=== PATIENT | male | born 1940 | race Caucasian/White ===

== ENCOUNTER → 2018-05-17 10:44 | Outpatient (CLI) | payer MEDICARE, OTHER, SELFPAY ==
--- NOTE | 2018-05-17 10:53 | XR_ITS ---
XR hand RT min 3V HISTORY: ITS.REASON: HAND INJURY , SWELLING ORDERING PHYSICIAN: Letty Alcala PATIENT AGE: 78 years COMPARISON: None FINDINGS: There is an oblique nondisplaced fracture involving the distal shaft of the third metacarpal. 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 IMPRESSION: Nondisplaced fracture of the third metacarpal
== END ==
PROVIDERS: PCP Nurse Practitioner Family; Visit Provider Nurse Practitioner Family
DX: S69.91XA Unspecified injury of right wrist, hand and finger(s), initial encounter (principal); M79.89 Other specified soft tissue disorders
CPT/HCPCS: 73130

== ENCOUNTER → 2018-06-07 09:19 | Outpatient (CLI) | payer MEDICARE, OTHER, SELFPAY ==
--- NOTE | 2018-06-07 09:29 | XR_ITS ---
XR hand RT min 3V HISTORY: ITS.REASON: HEALING OF RT HAND FX ORDERING PHYSICIAN: Letty Alcala PATIENT AGE: 78 years COMPARISON: May 17, 2018 TECHNIQUE: PA, Oblique and Lateral Hand FINDINGS: The oblique, spiral fracture at the distal third metacarpal is again seen. Passing passing through the distal shaft towards neck head Good apposition remains Slightly more evident cortical offset up to 1 mm is seen at the proximal corner of this spiral fracture on today's oblique view. Slightly different projection but this may reflect a very subtle interval movement. There is swelling about this area. No healing bone evident as of yet. Continued splinting and restricted movement of suggested. With follow-up in 2 weeks. Most pronounced degenerative arthritic changes are seen at the first carpal-metacarpal joint. Mild degenerative changes are seen at the IP joint of the fingers. It IMPRESSION Spiral fracture at the distal third metacarpal again seen. Good apposition, but suggestion of minor additional cortical offset at the proximal aspect of the fracture today's oblique view compared to previous study.. May reflect some minor movement. Follow-up suggested
== END ==
PROVIDERS: PCP Nurse Practitioner Family; Visit Provider Nurse Practitioner Family
DX: S62.342 Nondisplaced fracture of base of third metacarpal bone, right hand (principal)
CPT/HCPCS: 73130

== ENCOUNTER → 2019-04-12 13:47 | Outpatient (CLI) | payer MEDICARE, OTHER, SELFPAY ==
--- NOTE | 2019-04-12 14:11 | XR_ITS ---
XR KUB HISTORY: ITS.REASON: DYSURIA,CONSTIPATION ORDERING PHYSICIAN: Letty Alcala APRN PATIENT AGE: 79 years COMPARISON: FINDINGS: The bowel gas pattern is unremarkable. No obvious obstruction.. The small cluster of densities noted in the right upper quadrant may be due to cluster small renal stones. This could be confirmed with CT if clinically desired. Pelvic calcifications present inferiorly slightly to the left and could be due to a passed ureteral stone or phlebolith. Mild degenerative changes are present in the hips. IMPRESSION: 1. Possible right nephrolithiasis. 2. Left-sided pelvic calcification inferiorly could be due to phlebolith or a passed ureteral stone
[2019-04-12 14:31] LABS: Basophils # 0.1 K/mm3 (0-0.2); Basophils % 0.7 % (0.1-2.0); Eosinophils # 0.1 K/mm3 (0.0-0.4); Hemoglobin 14.8 g/dL (14.1-18.0); Lymphocytes # 1.2 K/mm3 (0.7-4.5); Lymphocytes % 16.6 % (10-50); Mean Corpuscular HGB Conc 34.5 g/dL (31.8-35.4); Mean Corpuscular Hemoglobin 29.3 pg (27.0-31.2); Mean Corpuscular Volume 84.9 fl (80-94); Mean Platelet Volume 7.2 fl (7.4-10.4); Monocytes # 0.5 K/mm3 (0.1-1.0); Monocytes % 6.7 % (1.7-9.3); Neutrophils # 5.5 K/mm3 (1.8-7.8); Neutrophils % 74.9 % (37.0-80.0); Platelet Count 237 K/mm3 (142-424); Red Blood Count 5.06 M/mm3 (4.60-6.20); Red Cell Distribution Width 12.4 % (11.5-17.5); White Blood Count 7.3 K/mm3 (4.8-10.8)
[2019-04-12 16:24] LABS: Alanine Aminotransferase 30 U/L (12-78); Albumin Level 3.5 gm/dL (3.4-5.0); Albumin/Globulin Ratio 1.2 (1.1-1.8); Alkaline Phosphatase 64 U/L (46-116); Anion Gap 9.6 mEq/L (5-15); Aspartate Amino Transferase 15 U/L (15-37); Bilirubin,Total 0.6 mg/dL (0.2-1.0); Blood Urea Nitrogen 20 mg/dL (7-18); Calcium 8.5 mg/dL (8.5-10.1); Carbon Dioxide 24 mmol/L (21.0-32.0); Chloride 99 mmol/L (98-107); Creatinine,Serum 1.11 mg/dL (0.70-1.30); Estimated Glomerular Filt Rate 64 ml/min (>60); GFR (African American) 78 ML/MIN (>60); Glucose 207 mg/dL (74-106); Potassium 4.6 mmoL/L (3.5-5.1); Prostate Specific Ag Screen 9.6 ng/mL (0.0-4.0); Sodium 128 mmol/L (136-145); Total Protein,Serum 6.5 gm/dL (6.4-8.2)
== END ==
PROVIDERS: Visit Provider Nurse Practitioner Family
DX: R30.0 Dysuria (principal); N40.0 Benign prostatic hyperplasia without lower urinary tract symptoms; K59.01 Slow transit constipation
CPT/HCPCS: 36415; 74018; 80053; 85025; G0103

== ENCOUNTER → 2019-06-04 13:00 | Outpatient (CLI) | payer MEDICARE, OTHER, SELFPAY ==
[2019-06-06 08:18] LABS: PSA, Free 1.29 ng/mL; Prostate Specific Ag 9.1 ng/mL (0.0-4.0)
== END ==
PROVIDERS: Visit Provider Urology
DX: R97.20 Elevated prostate specific antigen [PSA] (principal); Z12.5 Encounter for screening for malignant neoplasm of prostate
CPT/HCPCS: 36415; 84153; 84154

== ENCOUNTER → 2019-09-17 14:43 | Outpatient (CLI) | payer MEDICARE, OTHER, SELFPAY ==
[2019-09-19 12:03] LABS: PSA, Free 0.91 ng/mL; Prostate Specific Ag 7.8 ng/mL (0.0-4.0)
== END ==
PROVIDERS: Visit Provider Urology
DX: R97.20 Elevated prostate specific antigen [PSA] (principal)
CPT/HCPCS: 84153; 84154

== ENCOUNTER 2025-03-03 10:51 | Outpatient (CLI) | payer MEDICARE, SELFPAY ==
--- OUTSIDE RECORDS SUMMARY | 2025-03-03 10:54 | XMS_ITS | Encounter Summary ---
Author Name [facility] [place] Organization [facility] [place] [place] Address [address] [place] [id number] Care Team Providers Care Bank Compliance Officer Name Role Phone FLORESITA BARRIENTOS Primary Care Provider Unavailabl e Insurance Providers: All historical and current Section Date Range: From patient's date of to the date document was created. This section includes the names of all active insurance providers for the patient. Insurance Provider Type of Coverage Plan Name Start of Policy Coverage End of Policy Coverage Group Number Member ID Insurance Provider's Telephone Number Policy Barbosa's Name Patient's Relationship to Policy Barbosa MEDICARE (WNR) MEDICARE (M) PART A Feb 11, 2006 PART A [id number] Donny GODWIN PATIENT MEDICARE (WNR) MEDICARE (M) PART B Feb 11, 2006 PART B [id number] Donny GODWIN PATIENT MEDICARE (WNR) MEDICARE (M) PART A Feb 11, 2006 PART A [id number] [phone] [id number] Donny GODWIN PATIENT MEDICARE (WNR) MEDICARE (M) PART B Feb 11, 2006 PART B [id number] Donny GODWIN PATIENT MEDICARE (WNR) MEDICARE (M) PART A Feb 11, 2006 PART A [id number] Donny GODWIN PATIENT MEDICARE (WNR) MEDICARE (M) PART B Feb 11, 2006 PART B [id number] Donny GODWIN PATIENT MEDICARE (WNR) MEDICARE (M) PART A Feb 11, 2006 PART A [id number] Donny GODWIN PATIENT MEDICARE (WNR) MEDICARE (M) PART B Feb 11, 2006 PART B [id number] Donny GODWIN PATIENT MEDICARE PART D (WNR) PRESCRIPT ION PART D Nov 13, 2014 PART D [id number] Donny GODWIN PATIENT Selected Encounter This section includes the information on record at [place] for the Encounter. Date/Time Encounter Type Encounter Description Reason Pro vider Source March 15, 2024 11:53 AM Outpatient Encounter ADMIN PAT ACTIVTIES (MASNONCT) IHE Encounter Template Text not used by [place] Plan of Treatment: Future Appointments (+ 6 months) and Future Tests (+/- 45 days) The Plan of Treatment section includes future care activities for the patient from all [place] treatmentfacilities. This section includes future appointments and future orders which are active, pending or scheduled. Future Appointments This section includes appointments that were scheduled to occur 6 months from the date of the Encounter, up to a maximum of 20 appointments. The data comes from all [place] treatment facilities. Appointment Date/Time Appointment Type Appointme nt Facility Name Jul 24, 2024 09:00 AM AMBULATORY - NONE [facility] Jul 24, 2024 09:00 AM AMBULATORY - MEDICINE [facility] Encounter Notes: All associated encounter notes This section contains the clinical notes associated to the Encounter. Date/Time Encounter Note(s) Provider Source March 15, 2024 01:18 PM ADDENDUM: LOCAL TITLE: Addendum STANDARD TITLE: ADDENDUM DATE OF NOTE: MARCH 15, 2024@13:18:31 ENTRY DATE: MARCH 15, 2024@13:18:32 AUTHOR: SWETA REYNOSO COSIGNER: URGENCY: STATUS: COMPLETED Please disregard above note. Reviewed refills are available from [place] pharmacy(refills to be mailed). Mr. Godwin reports difficulty using [facility] to re-order medications and requests assistance. Thank you! /sarah REYNOSO PC Software Qa Manager RN-BC Signed: 03/15/2024 13:19 Receipt Acknowledged By: 03/20/2024 13:26 /ignacio/ YULI JEAN BAPTISTE COORDINATOR --- Original Document --- 03/15/24 PHARMACY TELEPHONE CARE NOTE: 1. Name of caller: 2. Phone #: 3. Specialty Clinic/Primary Care Team: Progress Note Date Title Author (and Author's Title) JUL 31, 2023@08:11 PC PROGRESS NOTE FLORESITA BARRIENTOS (STAFF PHYSICI JUL 11, 2014@14:40 NURSE PRACTITIONER PRO ROBERTA MCKNIGHT (A R N P) 4. Medication: Patient is wanting following rx sent to [facility] in [place] [phone]: LISINOPRIL 20MG TAB 5. Last fill date: Provider: 6. The caller requests prescription: 7. View Alert to: /ignacio/ Silverio Schreiber [facility] It Systems Analyst Signed: 03/15/2024 11:55 Receipt Acknowledged By: 03/15/2024 12:13 /sarah COLLINS M.D. PRIMARY CARE STAFF PHYSICIAN for FLORESITA BARRIENTOS 03/15/2024 ADDENDUM STATUS: COMPLETED I do not call in meds at a non [facility] pharmacy, the non [facility] pharmacy can send us a refill request /sarah COLLINS M.D. PRIMARY CARE STAFF PHYSICIAN Signed: 03/15/2024 12:15 Receipt Acknowledged By: 03/15/2024 13:12 /sarah REYNOSO PC Software Qa Manager RN-BC 03/15/2024 ADDENDUM STATUS: COMPLETED Please request faxed refill request for Dr. Collins. Thank you! /sarah REYNOSO PC Software Qa Manager RN-BC Signed: 03/15/2024 12:55 SWETA REYNOSO-CDD [facility] March 15, 2024 12:14 PM ADDENDUM: LOCAL TITLE: Addendum STANDARD TITLE: ADDENDUM DATE OF NOTE: MARCH 15, 2024@12:14:01 ENTRY DATE: MARCH 15, 2024@12:14:01 AUTHOR: JOSE ANGEL COLLINS COSIGNER: URGENCY: STATUS: COMPLETED I do not call in meds at a non [facility] pharmacy, the non [facility] pharmacy can send us a refill request /ignacio/ JOSE ANGEL COLLINS M.D. PRIMARY CARE STAFF PHYSICIAN Signed: 03/15/2024 12:15 Receipt Acknowledged By: 03/15/2024 13:12 /ignacio/ SWETA REYNOSO PC Software Qa Manager CLARK --- Original Document --- 03/15/24 PHARMACY TELEPHONE CARE NOTE: 1. Name of caller: 2. Phone #: 3. Specialty Clinic/Primary Care Team: Progress Note Date Title Author (and Author's Title) JUL 31, 2023@08:11 PC PROGRESS NOTE FLORESITA BARRIENTOS (STAFF PHYSICI JUL 11, 2014@14:40 NURSE PRACTITIONER PRO ROBERTA MCKNIGHT (A R N P) 4. Medication: Patient is wanting following rx sent to [facility] in [place] [phone]: LISINOPRIL 20MG TAB 5. Last fill date: Provider: 6. The caller requests prescription: 7. View Alert to: /ignacio/ Silverio Schreiber CPhT Pharmacy It Systems Analyst Signed: 03/15/2024 11:55 Receipt Acknowledged By: 03/15/2024 12:13 /sarah COLLINS M.D. PRIMARY CARE STAFF PHYSICIAN for FLORESITA BARRIENTOS 03/15/2024 ADDENDUM STATUS: COMPLETED Please request faxed refill request for Dr. Collins. Thank you! /ignacio/ SWETA REYNOSO PC Software Qa Manager RN-BC Signed: 03/15/2024 12:55 JOSE ANGEL COLLINS-CDD [facility] March 15, 2024 11:53 AM PHARMACY TELEPHONE ENCOUNTER NOTE: LOCAL TITLE: PHARMACY TELEPHONE CARE NOTE STANDARD TITLE: PHARMACY TELEPHONE ENCOUNTER NOTE DATE OF NOTE: MARCH 15, 2024@11:53 ENTRY DATE: MARCH 15, 2024@11:53:31 AUTHOR: SILVERIO SCHREIBER EXP COSIGNER: URGENCY: STATUS: COMPLETED PHARMACY TELEPHONE CARE NOTE Has ADDENDA 1. Name of caller: 2. Phone #: 3. Specialty Clinic/Primary Care Team: Progress Note Date Title Author (and Author's Title) JUL 31, 2023@08:11 PC PROGRESS NOTE FLORESITA BARRIENTOS (STAFF PHYSICI JUL 11, 2014@14:40 NURSE PRACTITIONER PRO ROBERTA MCKNIGHT (A R N P) 4. Medication: Patient is wanting following rx sent to [facility] in [place] [phone]: LISINOPRIL 20MG TAB 5. Last fill date: Provider: 6. The caller requests prescription: 7. View Alert to: /ignacio/ Silverio Schreiber [facility] It Systems Analyst Signed: 03/15/2024 11:55 Receipt Acknowledged By: 03/15/2024 12:13 /sarah COLLINS M.D. PRIMARY CARE STAFF PHYSICIAN for FLORESITA BARRIENTOS 03/15/2024 ADDENDUM STATUS: COMPLETED I do not call in meds at a non [place] pharmacy, the non [place] pharmacy can send us a refill request /sarah COLLINS M.D. PRIMARY CARE STAFF PHYSICIAN Signed: 03/15/2024 12:15 Receipt Acknowledged By: 03/15/2024 13:12 /sarah REYNOSO PC Software Qa Manager RN-BC 03/15/2024 ADDENDUM STATUS: COMPLETED Please request faxed refill request for Dr. Collins. Thank you! /sarah REYNOSO PC Software Qa Manager RN-BC Signed: 03/15/2024 12:55 03/15/2024 ADDENDUM STATUS: COMPLETED Please disregard above note. Reviewed refills are available from [place] pharmacy(refills to be mailed). Mr. Godwin reports difficulty using [facility] to re-order medications and requests assistance. Thank you! /ignacio/ SWETA REYNOSO PC Software Qa Manager RN- Signed: 03/15/2024 13:19 Receipt Acknowledged By: * AWAITING SIGNATURE * YULI GREEN,SILVERIO BUTTS-ITZEL [facility]
--- OUTSIDE RECORDS SUMMARY | 2025-03-03 10:54 | XMS_ITS ---
Author Name [facility] [place] [place] [facility] [place] Address [address] [place] [address] Care Team Providers Care Child Development Specialist Name Role Phone FLORESITA BARRIENTOS Primary Care [...] PART A Feb 11, 2006 PART A [id number] Donny GODWIN PATIENT MEDICARE (WNR) MEDICARE (M) PART B Feb 11, 2006 PART B [id number] Donny GODWIN PATIENT MEDICARE (WNR) MEDICARE (M) PART A Feb 11, 2006 PART A [id number] Donny GODWIN PATIENT MEDICARE (WNR) MEDICARE (M) PART B Feb 11, 2006 PART B [id number] Donny GODWIN PATIENT MEDICARE (WNR) MEDICARE (M) PART A Feb 11, 2006 PART A [id number] 78A Donny GODWIN PATIENT MEDICARE (WNR) MEDICARE (M) PART B Feb 11, 2006 PART B [id number] 78A Donny GODWIN PATIENT MEDICARE (WNR) MEDICARE (M) PART A Feb 11, 2006 PART A [id number] Donny GODWIN PATIENT MEDICARE (WNR) MEDICARE (M) PART B Feb 11, 2006 PART B [id number] Donny GODWIN PATIENT MEDICARE PART D (WNR) PRESCRIPT ION PART D Nov 13, 2014 PART D [id number] [phone] Donny GODWIN PATIENT Selected Encounter This section includes the information on record at [place] for the Encounter. Date/Time Encounter Type Encounter Description Reason Pro vider Source Jul 09, 2024 03:53 PM Outpatient Encounter ADMIN PAT ACTIVTIES (MASNONCT) IHE Encounter Template Text not used by [place] Plan of Treatment: Future Appointments (+ 6 months) and Future Tests (+/- 45 days) The Plan of Treatment section includes future care activities for the patient from all [place] treatmentfacilities. This section includes future appointments and future orders which are active, pending or scheduled. Future Appointments This section includes appointments that were scheduled to occur 6 months from the date of the Encounter, up to a maximum of 20 appointments. The data comes from all [place] treatment facilities. Appointment Date/Time Appointment Type Appointme nt Facility Name Jul 24, 2024 09:00 AM AMBULATORY - NONE [facility] Jul 24, 2024 09:00 AM AMBULATORY - MEDICINE ERIC [facility] Oct 09, 2024 01:00 PM AMBULATORY - NONE HEMAL Hardy [facility] Lab Results: +/- 30 days of the encounter This section includes the Chemistry and Hematology Lab Results on record with [place] for the patient. Radiology Reports and Pathology Reports are provided separately, in subsequent sections. Lab Results This section contains the Chemistry/Hematology Results that were resulted 30 days before or 30 daysafter the date of the Encounter. Date/Time Source Result Type Result - Unit Interpretation Reference Range Specimen Type Comment Jul 24, 2024 10:30 AM [facility] MICROALBUMIN/CREAT RATIO URINE Specimen Type: URINE No comment entered. Ordering Provider: OLGA ASHRAF Report Released Date/Time: Jul 24, 2024 09:59 AM Reporting Lab: [address] [id number] Performing Lab: [address] [address] CREATININE 127.5 mg/dL MICROALBUMIN QUANT 15.9 mg/L 0.0-30.0 .MICROALBUMIN/CREA RATIO 12.5 ug/mg{creat} Jul 24, 2024 10:21 AM [facility] GLYCOHEMOGLOBIN BLOOD Specimen Type: BLOOD Comment: [place] guidelines for A1c interpretation: Glycemic control targets are based on Shared Decision Making between clinicians and patients. Criteria used to establish an A1c target recommendation can be found at https://www.ar.gov/qualityandpatientsafety/ and include the use of result accuracy and precision(CV) of the A1c tests clinicians utilize at their own sites of practice. Values obtained from A1C measurements can vary. For typical A1C assays, a reported value of 7.0 could actually be between 6.72 and 7.28 if measured by a reference method. A reported value of 9.0 could actually be between 8.73 and 9.27. Ref: https://ngsp.org/CAPdata.asp. The in-house [employer] D-100 analyzer has a historical CV <= 2%. Contact the laboratory for further performance characteristics of this assay. Ordering Provider: OLGA ASHRAF Report Released Date/Time: Jul 24, 2024 09:59 AM Reporting Lab: [address] [address] Performing Lab: [address] [address] GLYCOHEMOGLOBIN 7.7 H 4.4-6.4 Jul 24, 2024 10:21 AM [facility] TSH PLASMA Specimen Type: PLASM A Comment: Estimated Glomerular Filtration Rate (eGFR) calculated using the 2020 Chronic Kidney Disease-Epidemiology (CKD-EPI) Collaboration creatinine equation; units of measure are mL/min/1.73 m2. Results are only valid for adults (>=18 years) whose serum creatinine is in a steady state. eGFR calculations are not valid for patients with acute kidney injury and for patients on dialysis. Creatinine-based estimates of kidney function may also be inaccurate in patients with reduced creatinine generation due to decreased muscle mass (e.g., malnutrition, severe hypoalbuminemia, sarcopenia, chronic neuromuscular disease, amputations, severe heart failure or liver disease) and in patients with increased creatinine generation due to increased muscle mass (e.g., muscle builders, anabolic steroids) or increased dietary intake. As drug clearance is proportional to total GFR and not GFR indexed to body surface area (BSA), in individuals with a BSA substantially different than 1.73 m2, drug dosing should be based on the reported eGFR value de-indexed from BSA by multiplying by the individual's BSA and dividing by 1.73. CKD is diagnosed based on abnormalities of kidney structure or function, present for >3 months, with implications for health and disease. CKD is classified and staged based on cause, eGFR and albuminuria (quantified as urine albumin to creatinine ratio). An eGFR >60 mL/min/1.73 m2 in the absence of increased urine albumin excretion or structural abnormalities does not represent CKD. eGFR CKD Interpretation (mL/min/1.73 m2) stage >=90 G1 Normal 60-89 G2 Mild decrease 45-59 G3A Mild to moderate decrease 30-44 G3B Moderate to severe decrease 15-29 G4 Severe decrease <15 G5 Kidney failure Ordering Provider: OLGA ASHRAF Report Released Date/Time: Jul 24, 2024 09:59 AM Reporting Lab: [address] [address] Performing Lab: [address] [address] TSH 1.5447 m[IU]/mL 0.3500-4.9400 Jul 24, 2024 10:21 AM [facility] 5 PLASMA Specimen Type: PLASM A Comment: Estimated Glomerular Filtration Rate (eGFR) calculated using the 2020 Chronic Kidney Disease-Epidemiology (CKD-EPI) Collaboration creatinine equation; units of measure are mL/min/1.73 m2. Results are only valid for adults (>=18 years) whose serum creatinine is in a steady state. eGFR calculations are not valid for patients with acute kidney injury and for patients on dialysis. Creatinine-based estimates of kidney function may also be inaccurate in patients with reduced creatinine generation due to decreased muscle mass (e.g., malnutrition, severe hypoalbuminemia, sarcopenia, chronic neuromuscular disease, amputations, severe heart failure or liver disease) and in patients with increased creatinine generation due to increased muscle mass (e.g., muscle builders, anabolic steroids) or increased dietary intake. As drug clearance is proportional to total GFR and not GFR indexed to body surface area (BSA), in individuals with a BSA substantially different than 1.73 m2, drug dosing should be based on the reported eGFR value de-indexed from BSA by multiplying by the individual's BSA and dividing by 1.73. CKD is diagnosed based on abnormalities of kidney structure or function, present for >3 months, with implications for health and disease. CKD is classified and staged based on cause, eGFR and albuminuria (quantified as urine albumin to creatinine ratio). An eGFR >60 mL/min/1.73 m2 in the absence of increased urine albumin excretion or structural abnormalities does not represent CKD. eGFR CKD Interpretation (mL/min/1.73 m2) stage >=90 G1 Normal 60-89 G2 Mild decrease 45-59 G3A Mild to moderate decrease 30-44 G3B Moderate to severe decrease 15-29 G4 Severe decrease <15 G5 Kidney failure Ordering Provider: OLGA ASHRAF Report Released Date/Time: Jul 24, 2024 09:59 AM Reporting Lab: [address] [address] Performing Lab: [address] [address] CREATININE 1.14 mg/dL 0.72-1.25 UREA NITROGEN 23 mg/dL 9-25 GLUCOSE 117 mg/dL H 74-100 SODIUM 140 mmol/L 136-145 POTASSIUM 4.1 mmol/L 3.5-5.1 CHLORIDE 107 mmol/L 98-107 CO2 24 mmol/L 22-29 CALCIUM 10.1 mg/dL 8.4-10.2 TOTAL PROTEIN 7.0 g/dL 6.4-8.3 ALBUMIN 4.4 g/dL 3.5-5.2 TOTAL BILIRUBIN 0.7 mg/dL 0.2-1.2 AST 18 U/L 5-34 ALT 16 U/L 0-55 ANION GAP 9 meq/L 3-19 ALK PHOS 72 U/L 40-150 eGFR (CKD-EPI) 64 Jul 24, 2024 10:21 AM [facility] LIPID PROFILE PLASMA Specimen Type: PLASM A Comment: Estimated Glomerular Filtration Rate (eGFR) calculated using the 2020 Chronic Kidney Disease-Epidemiology (CKD-EPI) Collaboration creatinine equation; units of measure are mL/min/1.73 m2. Results are only valid for adults (>=18 years) whose serum creatinine is in a steady state. eGFR calculations are not valid for patients with acute kidney injury and for patients on dialysis. Creatinine-based estimates of kidney function may also be inaccurate in patients with reduced creatinine generation due to decreased muscle mass (e.g., malnutrition, severe hypoalbuminemia, sarcopenia, chronic neuromuscular disease, amputations, severe heart failure or liver disease) and in patients with increased creatinine generation due to increased muscle mass (e.g., muscle builders, anabolic steroids) or increased dietary intake. As drug clearance is proportional to total GFR and not GFR indexed to body surface area (BSA), in individuals with a BSA substantially different than 1.73 m2, drug dosing should be based on the reported eGFR value de-indexed from BSA by multiplying by the individual's BSA and dividing by 1.73. CKD is diagnosed based on abnormalities of kidney structure or function, present for >3 months, with implications for health and disease. CKD is classified and staged based on cause, eGFR and albuminuria (quantified as urine albumin to creatinine ratio). An eGFR >60 mL/min/1.73 m2 in the absence of increased urine albumin excretion or structural abnormalities does not represent CKD. eGFR CKD Interpretation (mL/min/1.73 m2) stage >=90 G1 Normal 60-89 G2 Mild decrease 45-59 G3A Mild to moderate decrease 30-44 G3B Moderate to severe decrease 15-29 G4 Severe decrease <15 G5 Kidney failure Ordering Provider: OLGA ASHRAF Report Released Date/Time: Jul 24, 2024 09:59 AM Reporting Lab: [address] [address] Performing Lab: [place] [id number] CHOLESTEROL 114 mg/dL 0-199 TRIGLYCERIDE 68 mg/dL 0-149 HDL CHOLESTEROL 34 mg/dL L 40-69 DIRECT LDL CHOL. 64 mg/dL 0-100 Jul 24, 2024 10:21 AM [facility] CBC/PLT BLOOD Specimen Type: BLOOD No comment entered. Ordering Provider: OLGA ASHRAF Report Released Date/Time: Jul 24, 2024 09:59 AM Reporting Lab: [address] [address] Performing Lab: [address] [address] WBC 5.1 10*3/uL 5.0-10.0 RBC 4.48 10*6/uL L 4.6-6.2 HGB 12.8 g/dL L 14.0-18.0 HCT 39.9 L 42.0-52.0 MCV 89.1 fL 80.0-94.0 MCH 28.6 pg 27.0-31.0 MCHC 32.1 g/dL 32.0-36.0 PLT 181 10*3/uL 150-450 MPV 11.1 fL 9.0-13.1 RDW 12.0 11.0-16.0 NRBC 0.0 0.0-0.0 Encounter Notes: All associated encounter notes This section contains the clinical notes associated to the Encounter. Date/Time Encounter Note(s) Provider Source Jul 09, 2024 03:53 PM ADMINISTRATIVE NOT E: LOCAL TITLE: CLERICAL/ADMIN NOTE STANDARD TITLE: ADMINISTRATIVE NOTE DATE OF NOTE: JUL 09, 2024@15:53 ENTRY DATE: JUL 09, 2024@15:53:30 AUTHOR: ARNOLD WADDELL COSIGNER: URGENCY: STATUS: COMPLETED Attempted to contact patient to schedule due recall for PCP and no answer. Left HIPAA friendly message for patient to call back for scheduling. Letter sent. /ignacio/ ARNOLD WADDELL Advanced Well Service Floorperson Signed: 07/09/2024 15:53 ARNOLD WADDELLAziza [facility] Jul 09, 2024 03:53 PM PRIMARY CARE LETTE RS: [facility] TITLE: PC LETTER FOLLOW UP/PAST RECALL/INACTIVE STANDARD TITLE: PRIMARY CARE LETTERS DATE OF NOTE: JUL 09, 2024@15:53 ENTRY DATE: JUL 09, 2024@15:53:51 AUTHOR: ARNOLD WADDELL EXP COSIGNER: URGENCY: STATUS: COMPLETED [address] [address] [place] [id number] Mr. MEHRDAD GODWIN [address] [place] [address] [place] [address] JUL 09, 2024 Dear Mr. MEHRDAD GODWIN, Our Records indicate you are due for an appointment in primary care. We value you as a patient, and are concerned about your overall health. Patients are encouraged to see their Primary Care Provider annually to maintain their health care needs. If you would like to be seen and maintain enrollment in Primary Care, please contact our Telephone Care Program at or local [phone] to schedule an appointment. If you do not wish to be seen, please call the same number listed above, and let us know. We look forward to hearing from you soon. Sincerely, /sarah WADDELL Advanced Well Service Floorperson Patient Record Number [id number] ARNOLD WADDELL [facility]
--- OUTSIDE RECORDS SUMMARY | 2025-03-03 10:54 | XMS_ITS | Encounter Summary ---
Author Name [facility] [place] [facility] [place] [facility] [place] Address [address] [place] [id number] Care Team Providers Care Software Security Consultant Name Role Phone FLORESITA BARRIENTOS Primary Care [...] PART A Feb 11, 2006 PART A [id number] [phone] Donny GODWIN PATIENT MEDICARE (WNR) MEDICARE (M) PART B Feb 11, 2006 PART B [id number] Donny GODWIN PATIENT MEDICARE (WNR) MEDICARE (M) PART A Feb 11, 2006 PART A [id number] Donny GODWIN PATIENT MEDICARE (WNR) MEDICARE (M) PART B Feb 11, 2006 PART B [id number] [phone] Donny GODWIN PATIENT MEDICARE (WNR) MEDICARE (M) PART A Feb 11, 2006 PART A [id number] Donny GODWIN PATIENT MEDICARE (WNR) MEDICARE (M) PART B Feb 11, 2006 PART B [id number] Donny GODWIN PATIENT MEDICARE (WNR) MEDICARE (M) PART A Feb 11, 2006 PART A [id number] Donny GODWIN PATIENT MEDICARE (WNR) MEDICARE (M) PART B Feb 11, 2006 PART B [id number] Donny GODWIN PATIENT MEDICARE PART D (WNR) PRESCRIPT ION PART D Nov 13, 2014 PART D [id number] Donny GODWIN PATIENT Selected Encounter This section includes the information on record at [place] for the Encounter. Date/Time Encounter Type Encounter Description Reason Provider Source Jul 24, 2024 09:00 AM [facility]LEHEALTH FACILITY FEE PRIMARY CARE/MEDICINE ICD-10-CM E11.9 Type 2 diabetes mellitus without complications GILMAR ASHRAF Brandy Encounter Template Text not used by [place] Assessments - Encounter Diagnoses This section includes the primary and secondary diagnoses documented for the Encounter. Date/Time Primary/Secondary Diagnosis Diagnosis Name Provider Source Jul 24, 2024 10:12 AM PRIMARY Type 2 diabetes mellitus without complications OLGA ASHRAF [facility] Jul 24, 2024 10:12 AM SECONDARY Benign prostatic hyperplasia without lower urinry tract symp FLAREOLGA Beach [facility] Jul 24, 2024 10:12 AM SECONDARY Essential (primary) hypertension OLGA ASHRAF [facility] Jul 24, 2024 10:12 AM SECONDARY Mixed hyperlipidemia FLAREYOLGA [facility] Plan of Treatment: Future Appointments (+ 6 months) and Future Tests (+/- 45 days) The Plan of Treatment section includes future care activities for the patient from all [place] treatmentfacilities. This section includes future appointments and future orders which are active, pending or scheduled. Future Appointments This section includes appointments that were scheduled to occur 6 months from the date of the Encounter, up to a maximum of 20 appointments. The data comes from all [place] treatment facilities. Appointment Date/Time Appointment Type Appointme nt Facility Name Oct 09, 2024 01:00 PM AMBULATORY - NONE [facility] Lab Results: +/- 30 days of the encounter This section includes the Chemistry and Hematology Lab Results on record with [place] for the patient. Radiology Reports and Pathology Reports are provided separately, in subsequent sections. Lab Results This section contains the Chemistry/Hematology Results that were resulted 30 days before or 30 daysafter the date of the Encounter. Date/Time Source Result Type Result - Unit Interpretation Reference Range Specimen Type Comment Jul 24, 2024 10:30 AM [facility] N MICROALBUMIN/CREAT RATIO URINE Specimen Type: URINE No comment entered. Ordering Provider: OLGA ASHRAF Report Released Date/Time: Jul 24, 2024 09:59 AM Reporting Lab: [address] [address] Performing Lab: [address] [address] CREATININE 127.5 mg/dL MICROALBUMIN QUANT 15.9 mg/L 0.0-30.0 .MICROALBUMIN/CREA RATIO 12.5 ug/mg{creat} Jul 24, 2024 10:21 AM [facility] GLYCOHEMOGLOBIN BLOOD Specimen Type: BLOOD Comment: [place] guidelines for A1c interpretation: Glycemic control targets are based on Shared Decision Making between clinicians and patients. Criteria used to establish an A1c target recommendation can be found at https://www.nd.gov/qualityandpatientsafety/ and include the use of result accuracy [...] 8.73 and 9.27. Ref: https://ngsp.org/CAPdata.asp. The in-house [employer] D-100 analyzer has a historical CV <= 2%. Contact the laboratory for further performance characteristics of this assay. Ordering Provider: OLGA ASHRAF Report Released Date/Time: Jul 24, 2024 09:59 AM Reporting Lab: [address] [address] Performing Lab: [facility] [address] [facility] [address] GLYCOHEMOGLOBIN 7.7 H 4.4-6.4 Jul 24, 2024 10:21 AM [facility] TSH PLASMA Specimen Type: PLASM A Comment: [...] Jul 24, 2024 09:59 AM Reporting Lab: [facility] [address] [address] Performing Lab: [facility] [address] [address] TSH 1.5447 m[IU]/mL 0.3500-4.9400 Jul 24, 2024 10:21 AM [facility] PLASMA Specimen Type: PLASM A [...] Jul 24, 2024 09:59 AM Reporting Lab: [facility] [address] [facility] [address] Performing Lab: [address] [address] CREATININE 1.14 mg/dL 0.72-1.25 UREA NITROGEN 23 [...] (CKD-EPI) 64 Jul 24, 2024 10:21 AM [facility] LIPID PROFILE PLASMA Specimen Type: PLASM [...] Jul 24, 2024 09:59 AM Reporting Lab: [address] [address] Performing Lab: [address] [address] CHOLESTEROL 114 mg/dL 0-199 TRIGLYCERIDE 68 mg/dL 0-149 HDL CHOLESTEROL 34 mg/dL L 40-69 DIRECT LDL CHOL. 64 mg/dL 0-100 Jul 24, 2024 10:21 AM [facility] CBC/PLT BLOOD Specimen Type: BLOOD No comment entered. Ordering Provider: OLGA ASHRAF Report Released Date/Time: Jul 24, 2024 09:59 AM Reporting Lab: [address] [address] Performing Lab: [address] [address] WBC 5.1 10*3/uL 5.0-10.0 RBC 4.48 10*6/uL L 4.6-6.2 HGB 12.8 g/dL L 14.0-18.0 HCT 39.9 L 42.0-52.0 MCV 89.1 fL 80.0-94.0 MCH 28.6 pg 27.0-31.0 MCHC 32.1 g/dL 32.0-36.0 PLT 181 10*3/uL 150-450 MPV 11.1 fL 9.0-13.1 RDW 12.0 11.0-16.0 NRBC 0.0 0.0-0.0 Social History: Smoking Status (Most current) and Tobacco Use (All prior to encounter date) This section includes the most current, and the historical, smoking and tobacco- related health factors from the [place] facility where the Encounter took place. Current Smoking Status This section includes the most current smoking, or tobacco-related health factor, from the [place] facility where the Encounter took place. Date/Time Current Smoking Status Rosalinda Gibbons elena Jul 24, 2024 09:00 AM VA-TOBACCO NEVER USED [facility] Encounter Notes: All associated encounter notes This section contains the clinical notes associated to the Encounter. Date/Time Encounter Note(s) Provider Source Jul 28, 2024 07:33 PM PRIMARY CARE LETTE RS: LOCAL TITLE: PC LETTER TEST RESULTS STANDARD TITLE: PRIMARY CARE LETTERS DATE OF NOTE: JUL 28, 2024@19:33 ENTRY DATE: JUL 28, 2024@19:33:34 AUTHOR: OLGA ASHRAF EXP COSIGNER: URGENCY: STATUS: COMPLETED [facility] [address] [place] [address] Mr. MEHRDAD GODWIN [address] [place] [address] [address] [place], [place] [address] JUL 28, 2024 Dear Mr. MEHRDAD GODWIN Your Primary Care Provider has reviewed your recent tests Please call us if you have questions or problems. You can reach us at (toll free number) or [phone] (local number). If you are enrolled in [employer], and utilize those services, you may prefer to contact us by secure message. Thank you for your service to our Country. We are honored to be able to provide medical care to you. Recent labwork Collection DT Specimen Test Name Result Units Ref Range 07/24/2024 10:30 URINE CREATININE 127.5 mg/dL MICROALBUMIN LORI 15.9 mg/L 0.0 - 30.0 HI/CREA 12.5 ug/mg Crea 07/24/2024 10:21 PLASMA!! CHOLESTEROL 114 mg/dL 0 - 199 !! TRIGLYCERIDE 68 mg/dL 0 - 149 !! HDL CHOLESTEROL 34 L mg/dL 40 - 69 !! DIRECT LDL CHOL. 64 mg/dL 0 - 100 !! SODIUM 140 mmol/L 136 - 145 !! POTASSIUM 4.1 mmol/L 3.5 - 5.1 !! CHLORIDE 107 mmol/L 98 - 107 !! CO2 24 mmol/L 22 - 29 !! ANION GAP 9.0 mEq/L 3 - 19 !! GLUCOSE 117 H mg/dL 74 - 100 !! UREA NITROGEN 23 mg/dL 9 - 25 !! CREATININE 1.14 mg/dL 0.72 - 1.25 !! eGFR (CKD-EPI) 64 SEE EVAL !! CALCIUM 10.1 mg/dL 8.4 - 10.2 !! TOTAL PROTEIN 7.0 g/dL 6.4 - 8.3 !! ALBUMIN 4.4 g/dL 3.5 - 5.2 !! TOTAL BILIRUBIN 0.7 mg/dL 0.2 - 1.2 !! AST 18 U/L 5 - 34 !! ALT 16 U/L 0 - 55 !! ALK PHOS 72 U/L 40 - 150 !! TSH 1.5447 mIU/mL 0.3500 - 4.9400 07/24/2024 10:21 BLOOD !! GLYCOHEMOGLOBIN 7.7 H % 4.4 - 6.4 07/24/2024 10:21 BLOOD WBC 5.1 K/cmm 5.0 - 10.0 RBC 4.48 L M/cmm 4.6 - 6.2 HGB 12.8 L g/dL 14.0 - 18.0 HCT 39.9 L % 42.0 - 52.0 MCV 89.1 fL 80.0 - 94.0 MCH 28.6 pg 27.0 - 31.0 MCHC 32.1 g/dL 32.0 - 36.0 RDW 12.0 % 11.0 - 16.0 PLT 181 K/cmm 150 - 450 MPV 11.1 fL 9.0 - 13.1 NRBC 0.0 % 0.0 - 0.0 Overall labs look good/stable. There is a slight decrease in hemoglobin/hematocrit. Recheck CBC in 2 to 3 months Sincerely, /ignacio/ OLGA ASHRAF Staff Physician Patient Record Number [id number] OLGA ASHRAF-D [facility] Jul 24, 2024 10:14 AM MEDICATION MGT NOT E: LOCAL TITLE: OUTPATIENT ESSENTIAL MEDICATION LIST FOR REVIEW (EM STANDARD TITLE: MEDICATION MGT NOTE DATE OF NOTE: JUL 24, 2024@10:14 ENTRY DATE: JUL 24, 2024@10:14:15 AUTHOR: OLGA ASHRAF EXP COSIGNER: URGENCY: STATUS: COMPLETED Review of medications include: Patient allergies (Remote and Local) and active and pending prescriptions dispensed from this [place] (local) and dispensed from another [place] or [facility] facility (remote and pending) as well as local inpatient orders (pending and active) and clinic medications (IMOs), locally documented non-VA medications and local prescriptions that have or been discontinued in the past 90 days. With the exception of Allergies, if a category is not listed below, it means there were no relevant medications for the patient. ALLERGIES: Patient has answered NKA No Remote Allergy/ADR Data available for this patient ACTIVE OUTPATIENT MEDICATIONS LOCAL/REMOTE ATORVASTATIN CALCIUM 40MG TAB Directions: TAKE ONE-HALF TABLET BY MOUTH DAILY FOR CHOLESTEROL Quantity: 45 for 90 days Issued: 07/31/23 Filled: 06/07/24 Expires: 07/31/24 Refills: 0 Status: ACTIVE LISINOPRIL 20MG TAB Directions: TAKE ONE-HALF TABLET BY MOUTH DAILY FOR BLOOD PRESSURE/HEART Quantity: 45 for 90 days Issued: 07/31/23 Filled: 06/07/24 Expires: 07/31/24 Refills: 0 Status: ACTIVE SILDENAFIL CITRATE 100MG TAB Directions: TAKE ONE TABLET BY MOUTH DIRECTED FOR ERECTILE DYSFUNCTION - DO NOT TAKE WITH ANY MEDICATION CONTAINING NITRATES (LIMIT: 4 DOSES/30 DAYS OR 12 DOSES/90 DAYS, NON-REPLACEABLE MEDICATION) Quantity: 18 for 90 days Issued: 07/31/23 Filled: 12/12/23 Expires: 07/31/24 Refills: 2 Status: ACTIVE No remote medications found. PENDING OUTPATIENT MEDICATIONS (LOCAL/REMOTE): ACCU-CHEK GUIDE (GLUCOSE) TEST STRIP Directions: USE 1 STRIP TO TEST BLOOD SUGAR DIRECTED Quantity: 50 Special: USE 1 STRIP FSBS UD Status: PENDING ATORVASTATIN CALCIUM 40MG TAB Directions: TAKE ONE-HALF TABLET BY MOUTH DAILY FOR CHOLESTEROL Quantity: 45 Special: TAKE ONE-HALF TABLET PO DAILY Status: PENDING LANCET,SOFTCLIX Directions: USE LANCET AFFECTED AREA DIRECTED Quantity: 100 Special: USE LANCET TOP UD Status: PENDING LISINOPRIL 20MG TAB Directions: TAKE ONE-HALF TABLET BY MOUTH DAILY FOR BLOOD PRESSURE/HEART Quantity: 45 Special: TAKE ONE-HALF TABLET PO DAILY Status: PENDING METFORMIN HCL 500MG TAB Directions: TAKE ONE TABLET BY MOUTH TWICE A DAY Quantity: 180 Special: TAKE ONE TABLET PO BID Status: PENDING No remote medications found. ACTIVE NONVA MEDICATIONS (LOCAL): No local medications found. OUTPATIENT MEDICATIONS (LOCAL)WITHIN 90 DAYS: No local medications found. DISCONTINUED OUTPATIENT MEDICATIONS (LOCAL) WITHIN 90 DAYS: METFORMIN HCL 500MG 24HR SA TAB Directions: TAKE ONE TABLET BY MOUTH DAILY FOR BLOOD SUGAR Quantity: 90 for 90 days Issued: 08/02/23 Filled: 08/03/23 Expires: 08/02/24 Refills: 3 Status: DISCONTINUED CLINIC MEDICATIONS (LOCAL): No local medications found. /ignacio/ OLGA ASHRAF Staff Physician Signed: 07/24/2024 10:14 OLGA ASHRAF-ITEZL [facility] Jul 24, 2024 09:25 AM PRIMARY CARE NURSI NG NOTE: LOCAL TITLE: Giving Assistant Health Tech/medicinal plant picker Note STANDARD TITLE: PRIMARY CARE NURSING NOTE DATE OF NOTE: JUL 24, 2024@09:25 ENTRY DATE: JUL 24, 2024@09:25:28 AUTHOR: EWA BURTON EXP COSIGNER: URGENCY: STATUS: COMPLETED Alcohol Use Screen (AUDIT-C): Alcohol Screen: SCREEN FOR ALCOHOL (AUDIT-C) An alcohol screening test (AUDIT-C) was negative (score=0). 1. How often did you have a drink containing alcohol in the past year? Consider a drink to be a 12 ounce can or bottle of regular beer, 8 ounces of malt liquor, a 5 ounce glass of table wine, or a 1.5 ounce shot of liquor (like scotch, gin, or vodka). Never 2. How many drinks containing alcohol did you have on a typical day when you were drinking in the past year? Response not required due to responses to other questions. 3. How often did you have six or more drinks on one occasion in the past year? Response not required due to responses to other questions. Depression Screening: Perform PHQ-2 A PHQ-2 screen was performed. The score was 0 which is a negative screen for depression. Over the past two weeks, how often have you been bothered by the following problems? 1. Little interest or pleasure in doing things Not at all 2. Feeling down, depressed, or hopeless Not at all Homelessness/Food Insecurity Screen: In the past 2 months, have you been living in stable housing that you own, rent, or stay in as part of a household? Yes - Living in stable housing. Are you worried or concerned that in the next 2 months you may NOT have stable housing that you own, rent, or stay in as part of a household? No - Not worried about housing near future The [place] reports the following: Within the past 12 months, you worried whether your food would run out before you got money to buy more. Never true Within the past 12 months, the food you bought just didn't last and you didn't have money to get more. Never true Suicide Screen: C-SSRS Screening [place] Suicide Severity Rating Scale (C-SSRS) screener 1. Over the past month, have you wished you were or wished you could go to sleep and not wake up? No 2. Over the past month, have you had any actual thoughts of killing yourself? No 3. Over the past month, have you been thinking about how you might do this? Response not required due to responses to other questions. 4. Over the past month, have you had these thoughts and had some intention of acting on them? Response not required due to responses to other questions. 5. Over the past month, have you started to work out or worked out the details of how to kill yourself? Response not required due to responses to other questions. 6. If yes, at any time in the past month did you intend to carry out this plan? Response not required due to responses to other questions. 7. In your lifetime, have you ever done anything, started to do anything, or prepared to do anything to end your life (for example, collected pills, obtained a gun, gave away valuables, went to the roof but didn't jump)? No 8. If YES, was this within the past 3 months? Response not required due to responses to other questions. Sexual Orientation: The patient thinks of their sexual orientation as: Straight or Heterosexual ADL/IADL Functional Measures(V9): Incontinence Screen: Within the past 12 months, has the patient had any characteristics of incontinence (ability, voiding, leakage, etc.)? No incontinence. Falls Screen: Patient does not report falls within the past 12 months. Dementia Warning Signs: Please indicate below whether the patient or caregiver report any warning signs of Dementia? No warning signs of dementia noted. Hess Index of Lyman in Activities of Daily Living: HESS INDEX FOR ADL ASSESSMENT: HESS Index of Lyman in Activities of Daily Living was completed at this encounter. BATHING: Patient needs no supervision, direction or personal assistance with bathing. DRESSING: Patient needs no supervision, direction or personal assistance with dressing. TOILETING: Patient needs no supervision, direction or personal assistance with toileting. TRANSFERRING: Patient needs no supervision, direction or personal assistance with transferring. CONTINENCE: Patient needs no supervision, direction or personal assistance with bowel continence. FEEDING: Patient needs no supervision, direction or personal assistance with feeding/eating. ENTER TOTAL SCORE BELOW: TOTAL POINTS: = [ 6 ] NOTE: 6-5 = FULL FUNCTION (patient independent) INSTRUMENTAL ACTIVITIES OF DAILY LIVING (IADL) SCALE (Mateusz) Telephone: 1 point - Looks up numbers, dials, receives and makes calls without help Shoppin point - Takes care of all shopping needs independently Food preparation: 1 point - Plans, prepares, and serves adequate meals independently Housekeepin point - Performs light daily tasks such as dishwashing, bed-making Laundry: 1 point - Able to lauunder small items; rinses stockings, etc. Mode of transportation: 1 point - Travels independently on public transportation or drives own car Responsibility for own medications: 1 point - Is responsible for taking medication in correct dosages at correct time Ability to handle finances: 1 point - Manages financial matters independently (budgets, writes checks, pays rent and bills, goes to bank), collects and keeps track of income SCORING: The total score may range from 0 - 8. A lower score indicates a higher level of dependence. Total score: 8 points Learning Readiness Assessment: Preferred language for discussing health care Kiswahili NEW ASSESSMENT LEARNING BARRIERS No barriers to learning READING LIMITATIONS No reading limitations PREFERRED METHODS FOR LEARNING Written/Printed Material Verbal Demonstration (Audio/Visual) INTERESTED IN LEARNING (MOTIVATED) No PERSON BEING EDUCATED TODAY Patient Education was provided on the following topics RESPONSE Verbalizes Successfully Tobacco Use Screening: The patient has never used tobacco. PAVE Foot Check: A complete foot check was completed at this encounter. VISUAL INSPECTION: Includes inspection for skin breaks, deformity, erythema, trauma, pallor on elevation, dependent rubor, nail deformities, extensive callus and pitting edema. Visual exam results: Abnormal Observations: Thickened toenails PEDAL PULSES: Includes palpation of dorsalis and posterior tibial pulses and signs/symptoms of vascular compromise like pain, pallor, parasthesia or paralysis. Present (even if diminished) SENSORY CHECK: Includes 10 gram Monofilament ([place]) test of sensation. Intact (Greater than or equal to 80% of sites checked) Abnormal (Less than 80% of sites checked): Intact LOW-RISK: LOW RISK INFORMATION PROVIDED: 1. Advised patient not to walk barefoot. 2. Explained the importance of daily foot checks for changes. 3. Stressed the importance of daily foot hygiene, including bathing and complete drying. /ignacio/ Ewa Burton LPN LPN Signed: 07/24/2024 09:29 EWA BURTON [facility] Jul 24, 2024 07:26 AM PRIMARY CARE NOTE: LOCAL TITLE: [facility] PRIMARY CARE NOTE STANDARD TITLE: PRIMARY CARE NOTE DATE OF NOTE: JUL 24, 2024@07:26 ENTRY DATE: JUL 24, 2024@07:26:37 AUTHOR: OLGA ASHRAF EXP COSIGNER: URGENCY: STATUS: COMPLETED V9 [facility] PRIMARY CARE NOTE Has ADDENDA PRIMARY CARE CLINICAL [facility] CVT [ ]New patient [X]Follow-up [ ]Interim/Walk-in Patient identity confirmed with: Full name: MEHRDAD GODWIN N#: [id number] : Feb Verbal consent obtained for the virtual visit. was given the option to be seen [id number], or other visit modality. was also given the option to decline a virtual visit. Location: Clinic site [facility] Patient accompanied by:no one CHIEF COMPLAINT: Follow-up HPI: === 84 year old WHITE MALE presents for follow-up. states he is feeling well. He walks 2 to 3 hours/day. He has no cardiopulmonary symptoms with exercise. [place] states that he saw his family physician in May and had labs. Hemoglobin A1c was 10% of the time. [place] was started on metformin twice daily. has been checking fingerstick blood sugars at home and the highest has been 141. No low sugars/hypoglycemia [place] states he has a non-VA ophthalmology appointment scheduled in 2 to 3 weeks states he follows with urology every 6 months. He states that his urologist put him on a bladder pill though the had to discontinue this as it increased urinary frequency and urge incontinence. Since stopped the medication he is not having any lower urinary tract symptoms. He will continue to follow with urology REVIEW OF SYSTEMS: The Following Systems have been reviewed. General: No fever, No chills, No fatigue Skin: No rash Eyes: No diplopia, No change in vision ENT: No vertigo, No tinnitus, No epistaxis Respiratory: No cough, No SOA, No hemoptysis Cardiac: No chest pain, No palpitations, no lightheadedness GI: No nausea, No vomiting, No diarrhea, no melena hematochezia, no bowel movement changes : No dysuria, No hematuria Musculoskeletal: No arthralgia, No myalgia Endoscrine: No heat/cold intolerance, No polyuria Hematology: No easy bruising, No prolonged bleeding Neuro: No bowel\bladder incontinence,No focal motor weakness Psychiatry: No depression, No SI, No HI NON-VA PROVIDERS: PCP: Dr. Lizzy Concepcion in [facility] [place] UROLOGY: Dr. Ricci Abraham in [facility] OPTHALMOLOGY: Dr. Shabana Mahmood with [facility] Dr. Mahmood in [place] ([facility]) LOCAL PHARMACIES: [facility] [address] PAST MEDICAL AND SURGICAL HISTORY: Hypertension, hyperlipidemia, type 2 diabetes mellitus, BPH, ED, elevated PSA, cataract extractions and lens implants, GERD ====== HEALTH CARE MAINTENANCE: - LDCT: Not indicated. Never Smoker. - AAA: Not indicated. Never Smoker. - COLONOSCOPY: 02/2017 with HPs. No longer routinely recommended with age >75. - PSA: No longer routinely recommended with age >70. FAMILY HISTORY Father at age 85, heart problems. Mother at age 103, survived breast CA and eye CA, from complications after fall/head trauma. No known FHx of colon CA. SOCIAL HISTORY: SERVICE: [employer] OCCUPATION: Retired [employer] / [employer]. HOME/FAMILY: . Lives in [facility] [place] with his . He has 1 grown child from prior relationship who lives here in [place]. She has 3 grown children from prior relationship. TOBACCO: Never Smoker. ALCOHOL: Denies. ILLICITS: Denies. ALLERGIES: ========= Patient has answered NKA MEDICATION RECONCILIATION All current/active//disc ontinued medications have been reviewed with the patient and are correct as listed in the After Visit Summary/medication list provided to the patient today. All medications have been reviewed for interactions, appropriate dosing, duplications with other medications, and requirement for medical treatment. The patient was educated on the importance of carrying updated medication information and communicating this information to all providers. Any learning barriers were considered, and the patient, family and/or caregiver indicate good understanding and questions have been answered to their satisfaction. The patient, family, and/or caregiver has been educated on new medications including common and severe adverse reactions and/or side effects. OBJECTIVE: ========= Temperature: 96.7 Heart rate 73 Respiratory rate 18 Blood pressure 130/83 Weight 171 pounds Pulse ox 99% CVT PHYSICAL EXAM: GEN: Alert and Oriented x3, NAD, Appearance and affect appropriate SKIN: warm, No rash or abnormal lesion HEENT: No Redness or injury noted, No hoarseness, No epistaxis NEURO: Normal gait and speech, No tremor CV: Regular rate rhythm, Normal S1 and S2, No audible murmur, no carotid bruits RESP: Lung sounds clear to auscultation. No no wheezes, rales or rhonchi ABD: Soft,Normal bowel sounds EXTREM: No edema, No discoloration, Normal ROM of all extremities Examination and observations done with the aid of the Nurse Telepresenter with the direction of the PCP. Exam may be limited due to CVT evaluation. Test Results: -- No recent from [place] lab ASSESSMENT AND PLAN: 1. Diabetes mellitus type 2-continue metformin. [facility] Continue home blood sugar monitoring. Maintain a low simple sugar diet. Check A1c 2. Hypertension-continue regular exercise and lisinopril. 3. Hyperlipidemia-continue statin therapy. Check lipid profile 4. BPH-continue follow-up with urology. [place] states that he follows up every 6 months Check annual labs PCP Follow-up: 11 months Time spent: [ ] 30 mins [ ] 45 mins [X] 60 mins [place] was instructed to call [facility] or utilize [employer] for questions or concerns. also educated on use of [facility] or ER for acute or worsening symptoms. Nephropathy Screen (Prov) (V9): eGFR and uACR ordered. Eye Care At-Risk Screen : Patient identified to be at risk for the following eye condition(s): DIABETIC RETINOPATHY: Diabetes Diagnosis Information: Encounter Diagnosis: 08/02/2023@11:49:18 E11.9 (ICD-10-CM) Type 2 Diabetes Mellitus without Complications rank: PRIMARY Prov. Narr. - Diabetes mellitus type 2 ([facility] [id number]) Action: Patient has a future eye care appointment scheduled within the next 90 days. Date of Appointment: End of July or early August. is unsure the exact date at this time /ignacio/ OLGA ASHRAF Staff Physician Signed: 07/24/2024 10:14 08/02/2024 ADDENDUM STATUS: COMPLETED Left vm message to return call. /ignacio/ SWETA REY[facility] Financial Quantitative Analyst RN-BC Signed: 08/02/2024 15:28 08/02/2024 ADDENDUM STATUS: COMPLETED Left vm message to return call to tc. /ignacio/ SWETA REYNOSO [employer] Financial Quantitative Analyst RN-BC Signed: 08/02/2024 18:02 [facility]
--- OUTSIDE RECORDS SUMMARY | 2025-03-03 10:54 | XMS_ITS | Continuity of Care Document ---
Author Name [facility] Organization [facility] Care Team Providers Care Wind Energy Technician Name Role Phone [facility] Unavailable Unavailable Problems Combined list of problems from Department of Defense and [facility] Affairs facilities. It does not include entries that were removed or entered in error. Problem Status Onset Date Problem Type Date of Resolution Comments Source Anxiety disorder Active Condition [facility] Benign essential hypertension Active Condition [facility] Benign polyp of colon Active Condition March 31, 2017 Entered By: ZANE SOMMERS Comment: HP polyps resected February 2017 -- no additional scopes for CRC screening advised. scope only if symptoms arise. [facility] Benign prostatic hyperplasia Active Condition [facility] Cataract * (ICD-9-CM 366.9/366.10) Active Condition [facility] Diabetes mellitus type 2 Active Condition [facility] Elevated Prostate Specific antigen [psa] (ICD-9-CM 790.93) Active Condition [facility] Elevated PSA Active Condition [facility] Exposure to potentially hazardous substance ([facility] [id number]) Active Condition [facility] Family History Active Condition Jun 142013 Entered By: KIRSTEN MCKNIGHT Comment: Mom age 100: DMII,Jul 11, 2014 Entered By: KIRSTEN MCKNIGHT Comment: Dad age 85: rheumatic fever, DMII.Jul 11, 2014 Entered By: KIRSTEN MCKNIGHT Comment: Sibs: skin cancers [facility] Gastroesophageal reflux disease Active Condition [facility] Health Maintenance Active Condition A 2013 Entered By: KIRSTEN MCKNGIHT Comment: last colonoscopy 5 years ago: nl per patient [facility] Hepatitis A * (ICD-9-CM 070.1) Active Condition Jun 24 3 Entered By: ROMARIO HENDRIX Comment: 1968, no sequelae [facility] History of male erectile disorder Active Condition [facility] ON-C [facility] Male erectile disorder (ICD-9-CM 302.72/607.84) Active Condition [facility] Mixed hyperlipidemia Active Condition [facility] Non-VA Providers Active Condition Jul 11, 2014 Entered By: KIRSTEN MCKNIGHT Comment: Bryson Galvan, Family Doctor [facility] Personal History of Unspecified Diseases of Digestive System (ICD-9-CM V12.70) Active Condition Jun 19 Entered By: ROMARIO HENDRIX Comment: 1967---likely hepatitis A [facility] Social History Active Condition Jun 142013 Entered By: KIRSTEN MCKNIGHT Comment: : 1 childAug 2013 Entered By: KIRSTEN MCKNIGHT Comment: 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 Entered By: KIRSTEN MCKNIGHT Comment: Smoke: never [facility] Surgical History Active Condition Jul 11, 2014 Entered By: KIRSTEN MCKNIGHT Comment: Bilateral cataract surgery 2013 [facility] Diagnosis: ICD-10-CM Z71.2 Person consulting for explanation of exam or test findings Active Diagnosis [facility] Diagnosis: ICD-10-CM Z71.89 Other specified counseling Active Diagnosis [facility] Diagnosis: ICD-10-CM E11.9 Type 2 diabetes mellitus without complications Active Diagnosis [facility] Diagnosis: ICD-10-CM E11.8 Type 2 diabetes mellitus with unspecified complications Active Diagnosis [facility] Medications Combined list of outpatient medications from Department of Defense and Veterans Affairs facilities.Medications provided include 1) outpatient medications from the last 15 months, and 2) patient-reported medications. Medication Details Route Status Patient Instructions Prescription Expires Prescription Number Last Dispense Date Ordering Provider Order Date Order Qty Source ATORVASTATI N CA 40MG TAB TAKE ONE-HALF TABLET BY MOUTH DAILY FOR CHOLESTE ROL ORAL ACTIVE 07/25/2025 [id number] 5 DORIS ASHRAF PETER 2023 45 [place] ATORVASTATI N CA 40MG TAB TAKE ONE-HALF TABLET BY MOUTH DAILY FOR CHOLESTE ROL ORAL DISCONT INUED 07/31/2024 [id number] FLORESITA BARRIENTOS 2022 45 [place] [facility] CYANOCOBALA MIN 500MCG TAB TAKE ONE TABLET BY MOUTH DAILY FOR VITAMIN B12 SUPPLEME NT ORAL ACTIVE 11/08/2025 [id number] RANJIT MCELROY R 2023 100 [place] [facility] FOLIC ACID 1MG TAB TAKE ONE TABLET BY MOUTH EVERY MORNING FOR SUPPLEME NT ORAL ACTIVE 11/08/2025 [id number] 4 RANJIT MCELROY R 2023 100 [place] [facility] [place] LISINOPRIL 20MG TAB TAKE ONE-HALF TABLET BY MOUTH DAILY FOR BLOOD PRESSURE /HEART ORAL ACTIVE 07/25/2025 [id number] 5 DORIS ASHRAF 2023 45 [place] [facility] LISINOPRIL 20MG TAB TAKE ONE-HALF TABLET BY MOUTH DAILY FOR BLOOD PRESSURE /HEART ORAL DISCONT INUED 07/31/2024 [id number] 4 FLORESITA BARRIENTOS 2022 45 [place] [facility] METFORMIN HCL 500MG TAB TAKE ONE TABLET BY MOUTH TWICE A DAY FOR DIABETES ORAL ACTIVE 07/25/2025 [id number] 5 DORIS ASHRAF 2023 180 [place] SILDENAFIL CITRATE 100MG TAB TAKE ONE TABLET BY MOUTH DIRECTED FOR ERECTILE DYSFUNCT ION - DO NOT TAKE WITH ANY MEDICATI ON CONTAINI NG NITRATES (LIMIT: 4 DOSES/30 DAYS OR 12 DOSES/90 DAYS, NON-REPL ACEABLE MEDICATI ON) ORAL 07/31/2024 [id number] 4 FLORESITA BARRIENTOS 2022 18 [place] [facility] Immunizations Combined list of available immunizations from the Department of Defense and [facility] Affairs facilities. Immunization Series Date Given Administered By Site Reaction Lot Number CVX Code Drug Grid Maker Status Comments Source COVID-19 (PFIZER), MRNA, LNP-S, PF, RASHID-SUCROSE, 30 MCG/0.3 ML (AGES 12+ YEARS) 3 2023 309 complet ed HISTORICA L INFORMATI ON - FROM OTHER REGISTRY, [place] [facility] TD (ADULT), 5 LF TETANUS TOXOID, PRESERVATIVE FREE, ADSORBED 2021 113 complet ed [place] [facility] COVID-19 (MODERNA), MRNA, LNP-S, PF, 100 MCG/0.5 ML DOSE 2 2020 207 complet ed [place] [facility] COVID-19 (MODERNA), MRNA, LNP-S, PF, 100 MCG/0.5 ML DOSE 1 2020 207 complet ed [place] [facility] 1 2016 115 complet ed HISTORICA L INFORMATI ON - FROM OTHER REGISTRY, [place] [facility] TD(ADULT) UNSPECIFIED FORMULATION 2011 139 complet ed Booster for Series, [place] [facility] TDAP (HISTORICAL) 2011 115 complet ed [place] [facility] Results Combined list of recent chemistry, hematology and other laboratory results from Department of Defense and Veterans Affairs, ranging from 15 months to all on record, depending upon the facility. Order Name Results Value Reference Range Date Interpretation Specimen Comments Source METHYLMAL ONIC ACID (SERUM) METHYLMALON ATE [MOLES/VOLU ME] IN SERUM OR PLASMA 226 nmol/L 0 - 378 10/25 Specimen Type: SERUM No comment entered. Ordering Provider: Bashir BARRIENTOS Report Released Date/Time: Oct 16, 2024 08:32 AM Reporting Lab: [facility] [address] [facility] [address] Performing Lab: [facility] [address] [facility] [address] [facility] OWN CBC/PLT LEUKOCYTES [#/VOLUME] IN BLOOD BY AUTOMATED COUNT 4.7 10*3/u L 5.0 - 10.0 10/25 L Specimen Type: BLOOD No comment entered. Ordering Provider: Bashir BARRIENTOS Report Released Date/Time: Oct 16, 2024 08:32 AM Reporting Lab: [place] [address] Performing Lab: [address] OWN CBC/PLT ERYTHROCYTE S [#/VOLUME] IN BLOOD BY AUTOMATED COUNT 4.16 10*6/u L 4.6 - 6.2 10/25 L Specimen Type: BLOOD No comment entered. Ordering Provider: Bashir BARRIENTOS Report Released Date/Time: Oct 16, 2024 08:32 AM Reporting Lab: [place] [address] Performing Lab: [address] OWN CBC/PLT HEMOGLOBIN [MASS/VOLUM E] IN BLOOD 12.1 g/dL 14.0 - 18.0 10/25 L Specimen Type: BLOOD No comment entered. Ordering Provider: Bashir BARRIENTOS Report Released Date/Time: Oct 16, 2024 08:32 AM Reporting Lab: [place] [address] Performing Lab: [address] OWN CBC/PLT HEMATOCRIT [VOLUME FRACTION] OF BLOOD BY AUTOMATED COUNT 37.4 42.0 - 52.0 10/25 L Specimen Type: BLOOD No comment entered. Ordering Provider: Bashir BARRIENTOS Report Released Date/Time: Oct 16, 2024 08:32 AM Reporting Lab: [place] [address] Performing Lab: [place] [id number] OWN CBC/PLT MCV [ENTITIC VOLUME] BY AUTOMATED COUNT 89.9 fL 80.0 - 94.0 10/25 Specimen Type: BLOOD No comment entered. Ordering Provider: Bashir BARRIENTOS Report Released Date/Time: Oct 16, 2024 08:32 AM Reporting Lab: [address] [address] Performing Lab: [address] [address] [facility] OWN CBC/PLT MCH [ENTITIC MASS] BY AUTOMATED COUNT 29.1 pg 27.0 - 31.0 10/25 Specimen Type: BLOOD No comment entered. Ordering Provider: Bashir BARRIENTOS Report Released Date/Time: Oct 16, 2024 08:32 AM Reporting Lab: [address] [address] Performing Lab: [address] [address] [facility] OWN CBC/PLT MCHC [MASS/VOLUM E] BY AUTOMATED COUNT 32.4 g/dL 32.0 - 36.0 10/25 Specimen Type: BLOOD No comment entered. Ordering Provider: Bashir BARRIENTOS Report Released Date/Time: Oct 16, 2024 08:32 AM Reporting Lab: [address] [address] Performing Lab: [address] [address] [facility] OWN CBC/PLT PLATELETS [#/VOLUME] IN BLOOD 179 10*3/u L 150 - 450 10/25 Specimen Type: BLOOD No comment entered. Ordering Provider: Bashir BARRIENTOS Report Released Date/Time: Oct 16, 2024 08:32 AM Reporting Lab: [address] [address] Performing Lab: [address] [address] [facility] OWN CBC/PLT PLATELET MEAN VOLUME [ENTITIC VOLUME] IN BLOOD 11.6 fL 9.0 - 13.1 10/25 Specimen Type: BLOOD No comment entered. Ordering Provider: Bashir BARRIENTOS Report Released Date/Time: Oct 16, 2024 08:32 AM Reporting Lab: [address] [address] Performing Lab: [address] [address] [facility] OWN CBC/PLT ERYTHROCYTE DISTRIBUTIO N WIDTH [ENTITIC VOLUME] BY AUTOMATED COUNT 11.9 11.0 - 16.0 10/25 Specimen Type: BLOOD No comment entered. Ordering Provider: Bashir BARRIENTOS Report Released Date/Time: Oct 16, 2024 08:32 AM Reporting Lab: [place] [address] Performing Lab: [address] OWN CBC/PLT NUCLEATED ERYTHROCYTE S/100 ERYTHROCYTE S IN BLOOD 0.0 0.0 - 0.0 10/25 Specimen Type: BLOOD No comment entered. Ordering Provider: Bashir BARRIENTOS Report Released Date/Time: Oct 16, 2024 08:32 AM Reporting Lab: [place] [address] Performing Lab: [address] OWN IRON/TIBC IRON [MOLES/VOLU ME] IN SERUM OR PLASMA 94 ug/dL 65 - 175 10/25 Specimen Type: PLASMA No comment entered. Ordering Provider: Bashir BARRIENTOS Report Released Date/Time: Oct 16, 2024 08:32 AM Reporting Lab: [place] [address] Performing Lab: [address] OWN IRON/TIBC IRON BINDING CAPACITY [MASS/VOLUM E] IN SERUM OR PLASMA 294 mg/dL 250 - 425 10/25 Specimen Type: PLASMA No comment entered. Ordering Provider: Bashir BARRIENTOS Report Released Date/Time: Oct 16, 2024 08:32 AM Reporting Lab: [place] [address] Performing Lab: [address] OWN IRON/TIBC IRON SATURATION [MOLAR FRACTION] IN SERUM OR PLASMA 32 20 - 50 10/25 Specimen Type: PLASMA No comment entered. Ordering Provider: Bashir BARRIENTOS Report Released Date/Time: Oct 16, 2024 08:32 AM Reporting Lab: [address] Performing Lab: [address] [place] [address] OWN AUTOMATED DIFF LYMPHOCYTES /100 LEUKOCYTES IN BLOOD BY AUTOMATED COUNT 20.6 24.0 - 44.0 10/25 L Specimen Type: BLOOD No comment entered. Ordering Provider: Bashir BARRIENTOS Report Released Date/Time: Oct 16, 2024 08:32 AM Reporting Lab: [address] Performing Lab: [address] OWN AUTOMATED DIFF MONOCYTES/1 00 LEUKOCYTES IN BLOOD BY AUTOMATED COUNT 9.4 0.1 - 6.0 10/25 H Specimen Type: BLOOD No comment entered. Ordering Provider: Bashir BARRIENTOS Report Released Date/Time: Oct 16, 2024 08:32 AM Reporting Lab: [place] [address] Performing Lab: [address] OWN AUTOMATED DIFF GRANULOCYTE S/100 LEUKOCYTES IN BLOOD BY AUTOMATED COUNT 67.1 42.0 - 75.0 10/25 Specimen Type: BLOOD No comment entered. Ordering Provider: Bashir BARRIENTOS Report Released Date/Time: Oct 16, 2024 08:32 AM Reporting Lab: [address] Performing Lab: [place] [id number] [place] [address] OWN AUTOMATED DIFF LYMPHOCYTES [#/VOLUME] IN BLOOD BY AUTOMATED COUNT 0.96 10*3/u L 1.20 - 3.40 10/25 L Specimen Type: BLOOD No comment entered. Ordering Provider: Bashir BARRIENTOS Report Released Date/Time: Oct 16, 2024 08:32 AM Reporting Lab: [place] [id number] Performing Lab: [address] [address] [facility] OWN AUTOMATED DIFF MONOCYTES [#/VOLUME] IN BLOOD BY AUTOMATED COUNT 0.44 10*3/u L 0.00 - 0.60 10/25 Specimen Type: BLOOD No comment entered. Ordering Provider: Bsahir BARRIENTOS Report Released Date/Time: Oct 16, 2024 08:32 AM Reporting Lab: [address] [address] Performing Lab: [address] [address] [facility] OWN AUTOMATED DIFF GRANULOCYTE S [#/VOLUME] IN BLOOD BY AUTOMATED COUNT 3.13 10*3/u L 1.40 - 6.50 10/25 Specimen Type: BLOOD No comment entered. Ordering Provider: Bashir BARRIENTOS Report Released Date/Time: Oct 16, 2024 08:32 AM Reporting Lab: [address] [address] Performing Lab: [place] [id number] [facility] OWN AUTOMATED DIFF BASOPHILS/1 00 LEUKOCYTES IN BLOOD BY AUTOMATED COUNT 0.6 0.0 - 3.0 10/25 Specimen Type: BLOOD No comment entered. Ordering Provider: Bashir BARRIENTOS Report Released Date/Time: Oct 16, 2024 08:32 AM Reporting Lab: [address] [address] Performing Lab: [address] [address] [facility] OWN AUTOMATED DIFF BASOPHILS [#/VOLUME] IN BLOOD BY AUTOMATED COUNT 0.03 10*3/u L 0.00 - 0.20 10/25 Specimen Type: BLOOD No comment entered. Ordering Provider: Bashir BARRIENTOS Report Released Date/Time: Oct 16, 2024 08:32 AM Reporting Lab: [address] [address] Performing Lab: [address] [place] [address] OWN AUTOMATED DIFF EOSINOPHILS /100 LEUKOCYTES IN BLOOD BY AUTOMATED COUNT 1.9 0.0 - 10.0 10/25 Specimen Type: BLOOD No comment entered. Ordering Provider: Bashir BARRIENTOS Report Released Date/Time: Oct 16, 2024 08:32 AM Reporting Lab: [place] [address] Performing Lab: [address] OWN AUTOMATED DIFF EOSINOPHILS [#/VOLUME] IN BLOOD BY AUTOMATED COUNT 0.09 10*3/u L 0.00 - 0.70 10/25 Specimen Type: BLOOD No comment entered. Ordering Provider: Bashir BARRIENTOS Report Released Date/Time: Oct 16, 2024 08:32 AM Reporting Lab: [place] [address] Performing Lab: [address] OWN AUTOMATED DIFF IMMATURE GRANULOCYTE S/100 LEUKOCYTES IN BLOOD 0.4 0.0 - 0.5 10/25 Specimen Type: BLOOD No comment entered. Ordering Provider: Bashir BARRIENTOS Report Released Date/Time: Oct 16, 2024 08:32 AM Reporting Lab: [place] [id number] Performing Lab: [address] OWN AUTOMATED DIFF IMMATURE GRANULOCYTE S [#/VOLUME] IN BLOOD 0.02 10*3/u L 0.00 - 0.06 10/25 Specimen Type: BLOOD No comment entered. Ordering Provider: Bashir BARRIENTOS Report Released Date/Time: Oct 16, 2024 08:32 AM Reporting Lab: [place] [id number] Performing Lab: [address] OWN FERRITIN FERRITIN [MASS/VOLUM E] IN SERUM OR PLASMA 394.3 ng/mL 21.8 - 274.7 10/25 H Specimen Type: PLASMA No comment entered. Ordering Provider: Bashir BARRIENTOS Report Released Date/Time: Oct 16, 2024 08:32 AM Reporting Lab: [address] Performing Lab: [place] [id number] [place] [address] OWN RETIC COUNT (AUTOMATE D) RETICULOCYT ES/100 ERYTHROCYTE S IN BLOOD BY AUTOMATED COUNT 1.33 0.5 - 2.3 10/25 Specimen Type: BLOOD No comment entered. Ordering Provider: Bashir BARRIENTOS Report Released Date/Time: Oct 16, 2024 08:32 AM Reporting Lab: [address] Performing Lab: [place] [id number] OWN B12 VITAMIN COBALAMIN (VITAMIN B12) [MASS/VOLUM E] IN SERUM OR PLASMA 438 pg/mL 213 - 816 10/25 Specimen Type: PLASMA Comment: Vitamin B12 test may not yield results when protein level of sample is too elevated. Ordering Provider: Bashir BARRIENTOS Report Released Date/Time: Oct 16, 2024 08:32 AM Reporting Lab: [place] [id number] Performing Lab: [place] [id number] [place] [address] OWN FOLATE FOLATE [MASS/VOLUM E] IN SERUM OR PLASMA 8.1 ng/mL 7.0 - 31.4 10/25 Specimen Type: PLASMA Comment: Vitamin B12 test may not yield results when protein level of sample is too elevated. Ordering Provider: Bashir BARRIENTOS Report Released Date/Time: Oct 16, 2024 08:32 AM Reporting Lab: [place] [id number] Performing Lab: [place] [id number] [facility] OWN CBC/PLT LEUKOCYTES [#/VOLUME] IN BLOOD BY AUTOMATED COUNT 6.3 10*3/u L 5.0 - 10.0 10/09 Specimen Type: BLOOD No comment entered. Ordering Provider: BARBARA ASHRAF Report Released Date/Time: Jul 28, 2024 07:36 PM Reporting Lab: [place] [id number] Performing Lab: [place] [id number] [place] [address] OWN CBC/PLT ERYTHROCYTE S [#/VOLUME] IN BLOOD BY AUTOMATED COUNT 4.38 10*6/u L 4.6 - 6.2 10/09 L Specimen Type: BLOOD No comment entered. Ordering Provider: BARBARA ASHRAF Report Released Date/Time: Jul 28, 2024 07:36 PM Reporting Lab: [place] [id number] Performing Lab: [place] [id number] [place] [address] OWN CBC/PLT HEMOGLOBIN [MASS/VOLUM E] IN BLOOD 12.6 g/dL 14.0 - 18.0 10/09 L Specimen Type: BLOOD No comment entered. Ordering Provider: BARBARA ASHRAF Report Released Date/Time: Jul 28, 2024 07:36 PM Reporting Lab: [place] [id number] Performing Lab: [place] [id number] [place] [address] OWN CBC/PLT HEMATOCRIT [VOLUME FRACTION] OF BLOOD BY AUTOMATED COUNT 39.5 42.0 - 52.0 10/09 L Specimen Type: BLOOD No comment entered. Ordering Provider: BARBARA ASHRAF Report Released Date/Time: Jul 28, 2024 07:36 PM Reporting Lab: [address] [address] Performing Lab: [place] [id number] OWN CBC/PLT MCV [ENTITIC VOLUME] BY AUTOMATED COUNT 90.2 fL 80.0 - 94.0 10/09 Specimen Type: BLOOD No comment entered. Ordering Provider: BARBARA ASHRAF Report Released Date/Time: Jul 28, 2024 07:36 PM Reporting Lab: [address] [address] Performing Lab: [place] [id number] [place] [address] OWN CBC/PLT MCH [ENTITIC MASS] BY AUTOMATED COUNT 28.8 pg 27.0 - 31.0 10/09 Specimen Type: BLOOD No comment entered. Ordering Provider: BARBARA ASHRAF Report Released Date/Time: Jul 28, 2024 07:36 PM Reporting Lab: [address] [address] Performing Lab: [place] [id number] [place] [address] OWN CBC/PLT MCHC [MASS/VOLUM E] BY AUTOMATED COUNT 31.9 g/dL 32.0 - 36.0 10/09 L Specimen Type: BLOOD No comment entered. Ordering Provider: BARBARA ASHRAF Report Released Date/Time: Jul 28, 2024 07:36 PM Reporting Lab: [address] [address] Performing Lab: [place] [id number] [place] [address] OWN CBC/PLT PLATELETS [#/VOLUME] IN BLOOD 189 10*3/u L 150 - 450 10/09 Specimen Type: BLOOD No comment entered. Ordering Provider: BARBARA ASHRAF Report Released Date/Time: Jul 28, 2024 07:36 PM Reporting Lab: [address] [address] Performing Lab: [address] [phone] [place] [address] OWN CBC/PLT PLATELET MEAN VOLUME [ENTITIC VOLUME] IN BLOOD 11.7 fL 9.0 - 13.1 10/09 Specimen Type: BLOOD No comment entered. Ordering Provider: BARBARA ASHRAF Report Released Date/Time: Jul 28, 2024 07:36 PM Reporting Lab: [address] [address] Performing Lab: [address] [address] [facility] OWN CBC/PLT ERYTHROCYTE DISTRIBUTIO N WIDTH [ENTITIC VOLUME] BY AUTOMATED COUNT 12.0 11.0 - 16.0 10/09 Specimen Type: BLOOD No comment entered. Ordering Provider: BARBARA ASHRAF Report Released Date/Time: Jul 28, 2024 07:36 PM Reporting Lab: [place] [id number] Performing Lab: [place] [id number] [facility] OWN CBC/PLT NUCLEATED ERYTHROCYTE S/100 ERYTHROCYTE S IN BLOOD 0.0 0.0 - 0.0 10/09 Specimen Type: BLOOD No comment entered. Ordering Provider: BARBARA ASHRAF Report Released Date/Time: Jul 28, 2024 07:36 PM Reporting Lab: [place] [id number] Performing Lab: [place] [id number] [facility] OWN MICROALBU MIN/CREAT RATIO CREATININE [MASS/VOLUM E] IN URINE 127.5 mg/dL 07/24 Specimen Type: URINE No comment entered. Ordering Provider: BARBARA ASHRAF Report Released Date/Time: Jul 24, 2024 09:59 AM Reporting Lab: [place] [id number] Performing Lab: [place] [id number] [facility] OWN MICROALBU MIN/CREAT RATIO MICROALBUMI N [MASS/VOLUM E] IN URINE 15.9 mg/L 0.0 - 30.0 07/24 Specimen Type: URINE No comment entered. Ordering Provider: BARBARA ASHRAF Report Released Date/Time: Jul 24, 2024 09:59 AM Reporting Lab: [address] [address] Performing Lab: [place] [id number] [facility] OWN MICROALBU MIN/CREAT RATIO MICROALBUMI N/CREATININ E [MASS RATIO] IN URINE 12.5 ug/mg{ creat} 07/24 Specimen Type: URINE No comment entered. Ordering Provider: BARBARA ASHRAF Report Released Date/Time: Jul 24, 2024 09:59 AM Reporting Lab: [address] [address] Performing Lab: [address] [address] [facility] Vital Signs Combined list of inpatient and outpatient Vital Signs from Department of [facility] and [facility], ranging from 12 months to all on record, depending upon the facility. Vital Sign Value Date Comments Source SYSTOLIC BLOOD PRESSURE 138 07/24/2024 09:30:05 [facility] DIASTOLIC BLOOD PRESSURE 83 07/24/2024 09:30:05 [facility] PULSE OXIMETRY 99 07/24/2024 09:30:05 [facility] PAIN 0 07/24/2024 09:30:05 [facility] HEIGHT 71 07/24/2024 09:30:05 [facility] TEMPERATURE 96.7 07/24/2024 09:30:05 [facility] P[facility]SE 73 07/24/2024 09:30:05 [facility] RESPIRATION 18 07/24/2024 09:30:05 [facility] Encounters Combined list of: 1) Encounters from Department of Veterans Affairs facilities going backup to the last 18 months, not all [place] inpatient encounters are included; 2) Encounters from the Department of [facility] facilities going backup to 280 months. Location Location Details Encounter Type Encounter Number Reason For Visit Attending Provider ADM Date DC Date Status Disposition Source [facility] Outpatient Encounter [id number] 03/15 [facility] Outpatient Encounter [id number] 07/09 [place] Outpatient Encounter [id number] 07/11 [facility] Encounter [id number] 07/11 [place] [facility]P EST HI 40 MIN [id number] Diagnos is: ICD-10- CM E11.8 Type 2 diabete s mellitu s with unspeci fied complic ations FLAREY,ANT HONY PETER 07/24 [facility] FEE [id number] Diagnos is: ICD-10- CM E11.9 Type 2 diabete s mellitu s without complic ations FLAREY,ANT HONY PETER 07/24 [place] [facility] PHONE CALL 5-10 MIN [id number] [phone] Diagnos is: ICD-10- CM E11.9 Type 2 diabete s mellitu s without complic ations DEANA REYNOSO A 08/05 [place] [facility] HC PRO PHONE CALL 5-10 MIN [id number] [phone] Diagnos is: ICD-10- CM Z71.89 Other specifi ed legal counsel ing DEANA REYNOSO A 10/23 [place] [facility] HC PRO PHONE CALL 5-10 MIN [id number] [phone] Diagnos is: ICD-10- CM Z71.2 Person consult ing for explana tion of exam or test finding s KENNEDI VELIZ 11/07 [place] [facility] [place] Social History Combined list of available smoking, tobacco, and other social history from [facility] and [facility] facilities. Social History Type Response Date Comment Sourc e Tobacco smoking status NHIS [facility]-TOBACCO NEVER USED 07/24/2024 [facility] History of tobacco use NM-TOBACCO NEVER USED 07/31/2023 [facility]2020 [facility]2019 [facility] History of tobacco use V9 LIFETIME NON-USER OF TOBACCO 07/09/2018 [facility] History of tobacco use V9 LIFETIME NON-USER OF TOBACCO 06/28/2017 [facility] History of tobacco use V9 LIFETIME NON-USER OF TOBACCO 06/15/2016 [facility] History of tobacco use V9 LIFETIME NON-USER OF TOBACCO 07/13/2015 [facility] History of tobacco use V9 LIFETIME NON-USER OF TOBACCO 07/11/2014 [facility] History of tobacco use V9 LIFETIME NON-USER OF TOBACCO 06/24/2013 [facility] History of tobacco use V9 LIFETIME NON-USER OF TOBACCO 06/19/2012 [facility]
--- NOTE | 2025-03-03 10:58 | US_ITS ---
FINAL REPORT TECHNIQUE: Ultrasound images of the kidneys were obtained. CLINICAL HISTORY: ELEVATED BUN, HTN, TYPE 2 DIABETES COMPARISON: None FINDINGS: RENAL ULTRASOUND Limited images of the liver parenchyma demonstrate normal echogenicity. The right kidney measures 10.3 cm in length. There is moderate right hydronephrosis. There is no renal mass. There is normal cortical echogenicity and thickness. The left kidney measures 12.5 cm in length. There is moderate to severe left hydronephrosis. There is no renal mass. There is no evidence of renal stone. There is normal cortical echogenicity and thickness. Incidental note is made of multiple gallstones in the gallbladder. IMPRESSION: Bilateral hydronephrosis, etiology unclear. Consider CT if indicated. Reviewed, Interpreted and Dictated by Nancy Kumari MD Transcribed by Alia Ace Authenticated and [facility]
== END 2025-03-03 23:59 | disposition home or self-care (01) ==
LOC: RAD 10:52
PROVIDERS: PCP Nurse Practitioner Family; Visit Provider Nurse Practitioner Family
DX: I10 Essential (primary) hypertension (principal); E11.9 Type 2 diabetes mellitus without complications; R79.9 Abnormal finding of blood chemistry, unspecified
CPT/HCPCS: 76770

== ENCOUNTER 2025-03-07 10:47 | Outpatient (CLI) | payer MEDICARE, SELFPAY ==
--- OUTSIDE RECORDS SUMMARY | 2025-03-07 10:49 | XMS_ITS | Continuity of Care Document ---
Author Name [facility] Organization [facility] Care Team Providers Care Associate Professor Of Management Name Role Phone [facility] Unavailable Unavailable Problems Combined list of problems from Department of Defense and [facility] Affairs facilities. It does not include entries that were removed or entered in error. Problem Status Onset Date Problem Type Date of Resolution Comments Source Anxiety disorder [facility] Benign essential hypertension Active Condition [facility] Benign polyp of colon Active Condition March 31, 2017 Entered By: ZANE SOMMERS Comment: HP polyps resected February 2017 -- no additional scopes for CRC screening advised. scope only if symptoms arise. [facility] Benign prostatic hyperplasia Active Condition [facility] Cataract * (ICD-9-CM 366.9/366.10) Active Condition [facility] Diabetes mellitus type 2 Active Condition [facility] Elevated Prostate Specific antigen [psa] (ICD-9-CM 790.93) Active Condition [facility] Elevated PSA Active Condition [facility] Exposure to potentially hazardous substance ([facility] [id number]) Active Condition [facility] Family History Active Condition Jun 142013 Entered By: KIRSTEN MCKNIGTH Comment: Mom age 100: DMII,Jul 11, 2014 Entered By: KIRSTEN MCKNIGHT Comment: Dad age 85: rheumatic fever, DMII.Jul 11, 2014 Entered By: KIRSTEN MCKNIGHT Comment: Sibs: skin cancers [facility] Gastroesophageal reflux disease Active Condition [facility] Health Maintenance Active Condition A 2013 Entered By: KIRSTEN MCKNIGHT Comment: last colonoscopy 5 years ago: nl per patient [facility] Hepatitis A * (ICD-9-CM 070.1) Active Condition Jun 24 3 Entered By: ROMARIO HENDRIX Comment: 1968, no sequelae [facility] History of male erectile disorder Active Condition [facility] Male erectile disorder (ICD-9-CM 302.72/607.84) Active Condition [facility] Mixed hyperlipidemia Active Condition [facility] Non-[place] Providers Active Condition Jul 11, 2014 Entered By: KIRSTEN MCKNIGHT Comment: Bryson Galvan, Family Doctor [facility] Personal History of Unspecified Diseases of Digestive System (ICD-9-CM V12.70) Active Condition Jun 19 Entered By: ROMARIO HENDRIX Comment: 1967---likely hepatitis A [facility] Social History Active Condition Jun 142013 Entered By: KIRSTEN MCKNIGHT Comment: : 1 childAug 2013 Entered By: KIRSTEN MCKNIGHT Comment: 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 Entered By: KIRSTEN MCKNIGHT Comment: Smoke: never [facility] Surgical History Active Condition Jul 11, 2014 Entered By: KIRSTEN MCKNIGHT Comment: Bilateral cataract surgery 2013 [facility] Diagnosis: ICD-10-CM Z71.2 Person consulting for explanation of exam or test findings Active Diagnosis [facility] Diagnosis: ICD-10-CM Z71.89 Other specified counseling Active Diagnosis [facility] Diagnosis: ICD-10-CM E11.9 Type 2 diabetes mellitus without complications Active Diagnosis [facility] Diagnosis: ICD-10-CM E11.8 Type 2 diabetes mellitus with unspecified complications Active Diagnosis [facility] MARIANO [facility] Medications Combined list of outpatient medications [...] DAILY FOR CHOLESTE ROL ORAL ACTIVE 07/25/2025 [id number] DORIS ASHRAF PETER 2023 45 [place] [facility] ATORVASTATI N CA 40MG TAB TAKE ONE-HALF TABLET BY MOUTH DAILY FOR CHOLESTE ROL ORAL DISCONT INUED 07/31/2024 [id number] FLORESITA BARRIENTOS 2022 45 [place] [facility] CYANOCOBALA MIN 500MCG TAB TAKE ONE TABLET BY MOUTH DAILY FOR VITAMIN B12 SUPPLEME NT ORAL ACTIVE 11/08/2025 [id number] RANJIT MCELROY R 2023 100 [place] [facility] FOLIC ACID 1MG TAB TAKE ONE TABLET BY MOUTH EVERY MORNING FOR SUPPLEME NT ORAL ACTIVE 11/08/2025 [id number] RANJIT MCELROY R 2023 100 [place] [facility] LISINOPRIL 20MG TAB TAKE ONE-HALF TABLET BY MOUTH DAILY FOR BLOOD PRESSURE /HEART ORAL ACTIVE 07/25/2025 [id number] DORIS ASHRAF 2023 45 [place] LISINOPRIL 20MG TAB TAKE ONE-HALF TABLET BY MOUTH DAILY FOR BLOOD PRESSURE /HEART ORAL DISCONT INUED 07/31/2024 [id number] FLORESITA BARRIENTOS 2022 45 [place] [facility] METFORMIN HCL 500MG TAB TAKE ONE TABLET BY MOUTH TWICE A DAY FOR DIABETES ORAL ACTIVE 07/25/2025 [id number] 5 DORIS ASHRAF 2023 180 [place] [facility] SILDENAFIL CITRATE 100MG TAB TAKE ONE TABLET BY MOUTH DIRECTED FOR ERECTILE DYSFUNCT ION - DO NOT TAKE WITH ANY MEDICATI ON CONTAINI NG NITRATES (LIMIT: 4 DOSES/30 DAYS OR 12 DOSES/90 DAYS, NON-REPL ACEABLE MEDICATI ON) ORAL 07/31/2024 [id number] FLORESITA BARRIENTOS 2022 18 [place] [facility] Immunizations Combined list of available immunizations from the Department of Defense and [facility] Affairs facilities. Immunization Series Date Given Administered By Site Reaction Lot Number CVX Code Drug Roller Status Comments Source COVID-19 (PFIZER), MRNA, LNP-S, PF, RASHID-SUCROSE, 30 MCG/0.3 ML (AGES 12+ YEARS) 3 2023 309 complet ed HISTORICA L INFORMATI ON - FROM OTHER REGISTRY, [place] [facility] TD (ADULT), 5 LF TETANUS TOXOID, PRESERVATIVE FREE, ADSORBED 2021 113 complet ed [place] [facility] COVID-19 (MODERNA), MRNA, LNP-S, PF, 100 MCG/0.5 ML DOSE 2 2020 207 complet ed [place] [facility] COVID-19 (MODERNA), MRNA, LNP-S, PF, 100 MCG/0.5 ML DOSE 1 2020 207 complet ed [place] [facility] 1 2016 115 complet ed HISTORICA L INFORMATI ON - FROM OTHER REGISTRY, [place] [facility] TD(ADULT) UNSPECIFIED FORMULATION 2011 139 complet ed Booster for Series, [place] [facility] ([facility]ISTORICAL) 2011 115 complet ed [place] [facility] Results Combined list of recent chemistry, hematology and other laboratory results from Department of Defense and Veterans Affairs, ranging from 15 months to all on record, depending upon the facility. Order Name Results Value Reference Range Date Interpretation Specimen Comments Source AUTOMATED DIFF LYMPHOCYTES /100 LEUKOCYTES IN BLOOD BY AUTOMATED COUNT 20.6 24.0 - 44.0 10/25 L Specimen Type: BLOOD No comment entered. Ordering Provider: Bashir BARRIENTOS Report Released Date/Time: Oct 16, 2024 08:32 AM Reporting Lab: [address] [address] Performing Lab: [address] [address] [facility] AUTOMATED DIFF MONOCYTES/1 00 LEUKOCYTES IN BLOOD BY AUTOMATED COUNT 9.4 0.1 - 6.0 10/25 H Specimen Type: BLOOD No comment entered. Ordering Provider: Bashir BARRIENTOS Report Released Date/Time: Oct 16, 2024 08:32 AM Reporting Lab: [address] [address] Performing Lab: [address] [phone] [place] [address] OWN AUTOMATED DIFF GRANULOCYTE S/100 LEUKOCYTES IN BLOOD BY AUTOMATED COUNT 67.1 42.0 - 75.0 10/25 Specimen Type: BLOOD No comment entered. Ordering Provider: Bashir BARRIENTOS Report Released Date/Time: Oct 16, 2024 08:32 AM Reporting Lab: [address] [address] Performing Lab: [place] [phone] [facility] OWN AUTOMATED DIFF LYMPHOCYTES [#/VOLUME] IN BLOOD BY AUTOMATED COUNT 0.96 10*3/u L 1.20 - 3.40 10/25 L Specimen Type: BLOOD No comment entered. Ordering Provider: Bashir BARRIENTOS Report Released Date/Time: Oct 16, 2024 08:32 AM Reporting Lab: [address] [address] Performing Lab: [place] [phone] [facility] OWN AUTOMATED DIFF MONOCYTES [#/VOLUME] IN BLOOD BY AUTOMATED COUNT 0.44 10*3/u L 0.00 - 0.60 10/25 Specimen Type: BLOOD No comment entered. Ordering Provider: Bashir BARRIENTOS Report Released Date/Time: Oct 16, 2024 08:32 AM Reporting Lab: [address] [address] Performing Lab: [address] [address] [facility] OWN AUTOMATED DIFF GRANULOCYTE S [#/VOLUME] IN BLOOD BY AUTOMATED COUNT 3.13 10*3/u L 1.40 - 6.50 10/25 Specimen Type: BLOOD No comment entered. Ordering Provider: Bashir BARRIENTOS Report Released Date/Time: Oct 16, 2024 08:32 AM Reporting Lab: [address] [address] Performing Lab: [address] [address] [facility] OWN AUTOMATED DIFF BASOPHILS/1 00 LEUKOCYTES IN BLOOD BY AUTOMATED COUNT 0.6 0.0 - 3.0 10/25 Specimen Type: BLOOD No comment entered. Ordering Provider: Bsahir BARRIENTOS Report Released Date/Time: Oct 16, 2024 08:32 AM Reporting Lab: [place] [phone] Performing Lab: [place] [phone] [facility] OWN AUTOMATED DIFF BASOPHILS [#/VOLUME] IN BLOOD BY AUTOMATED COUNT 0.03 10*3/u L 0.00 - 0.20 10/25 Specimen Type: BLOOD No comment entered. Ordering Provider: Bashir BARRIENTOS Report Released Date/Time: Oct 16, 2024 08:32 AM Reporting Lab: [place] [phone] Performing Lab: [place] [phone] [facility] OWN AUTOMATED DIFF EOSINOPHILS /100 LEUKOCYTES IN BLOOD BY AUTOMATED COUNT 1.9 0.0 - 10.0 10/25 Specimen Type: BLOOD No comment entered. Ordering Provider: Bashir BARRIENTOS Report Released Date/Time: Oct 16, 2024 08:32 AM Reporting Lab: [address] [address] Performing Lab: [place] [phone] [facility] OWN AUTOMATED DIFF EOSINOPHILS [#/VOLUME] IN BLOOD BY AUTOMATED COUNT 0.09 10*3/u L 0.00 - 0.70 10/25 Specimen Type: BLOOD No comment entered. Ordering Provider: Bashir BARRIENTOS Report Released Date/Time: Oct 16, 2024 08:32 AM Reporting Lab: [address] [address] Performing Lab: [address] [address] [facility] OWN AUTOMATED DIFF IMMATURE GRANULOCYTE S/100 LEUKOCYTES IN BLOOD 0.4 0.0 - 0.5 10/25 Specimen Type: BLOOD No comment entered. Ordering Provider: Bashir BARRIENTOS Report Released Date/Time: Oct 16, 2024 08:32 AM Reporting Lab: [place] [phone] Performing Lab: [place] [phone] OWN AUTOMATED DIFF IMMATURE GRANULOCYTE S [#/VOLUME] IN BLOOD 0.02 10*3/u L 0.00 - 0.06 10/25 Specimen Type: BLOOD No comment entered. Ordering Provider: Bashir BARRIENTOS Report Released Date/Time: Oct 16, 2024 08:32 AM Reporting Lab: [address] Performing Lab: [place] [phone] OWN B12 VITAMIN COBALAMIN (VITAMIN B12) [MASS/VOLUM E] IN SERUM OR PLASMA 438 pg/mL 213 - 816 10/25 Specimen Type: PLASMA Comment: Vitamin B12 test may not yield results when protein level of sample is too elevated. Ordering Provider: Bashir BARRIENTOS Report Released Date/Time: Oct 16, 2024 08:32 AM Reporting Lab: [place] [phone] Performing Lab: [place] [phone] [place] [address] OWN CBC/PLT LEUKOCYTES [#/VOLUME] IN BLOOD BY AUTOMATED COUNT 4.7 10*3/u L 5.0 - 10.0 10/25 L Specimen Type: BLOOD No comment entered. Ordering Provider: Bashir BARRIENTOS Report Released Date/Time: Oct 16, 2024 08:32 AM Reporting Lab: [place] [phone] Performing Lab: [place] [phone] [facility] OWN CBC/PLT ERYTHROCYTE S [#/VOLUME] IN BLOOD BY AUTOMATED COUNT 4.16 10*6/u L 4.6 - 6.2 10/25 L Specimen Type: BLOOD No comment entered. Ordering Provider: Bashir BARRIENTOS Report Released Date/Time: Oct 16, 2024 08:32 AM Reporting Lab: [place] [phone] Performing Lab: [address] OWN CBC/PLT HEMOGLOBIN [MASS/VOLUM E] IN BLOOD 12.1 g/dL 14.0 - 18.0 10/25 L Specimen Type: BLOOD No comment entered. Ordering Provider: Bashir BARRIENTOS Report Released Date/Time: Oct 16, 2024 08:32 AM Reporting Lab: [place] [address] Performing Lab: [address] OWN CBC/PLT HEMATOCRIT [VOLUME FRACTION] OF BLOOD BY AUTOMATED COUNT 37.4 42.0 - 52.0 10/25 L Specimen Type: BLOOD No comment entered. Ordering Provider: Bashir BARRIENTOS Report Released Date/Time: Oct 16, 2024 08:32 AM Reporting Lab: [place] [address] Performing Lab: [address] OWN CBC/PLT MCV [ENTITIC VOLUME] BY AUTOMATED COUNT 89.9 fL 80.0 - 94.0 10/25 Specimen Type: BLOOD No comment entered. Ordering Provider: Bashir BARRIENTOS Report Released Date/Time: Oct 16, 2024 08:32 AM Reporting Lab: [place] [address] Performing Lab: [address] OWN CBC/PLT MCH [ENTITIC MASS] BY AUTOMATED COUNT 29.1 pg 27.0 - 31.0 10/25 Specimen Type: BLOOD No comment entered. Ordering Provider: ILIANA,L AURA A Report Released Date/Time: Oct 16, 2024 08:32 AM Reporting Lab: [address] [address] Performing Lab: [place] [phone] [place] [address] OWN CBC/PLT MCHC [MASS/VOLUM E] BY AUTOMATED COUNT 32.4 g/dL 32.0 - 36.0 10/25 Specimen Type: BLOOD No comment entered. Ordering Provider: Bashir BARRIENTOS Report Released Date/Time: Oct 16, 2024 08:32 AM Reporting Lab: [place] [phone] Performing Lab: [place] [phone] OWN CBC/PLT PLATELETS [#/VOLUME] IN BLOOD 179 10*3/u L 150 - 450 10/25 Specimen Type: BLOOD No comment entered. Ordering Provider: Bashir BARRIENTOS Report Released Date/Time: Oct 16, 2024 08:32 AM Reporting Lab: [place] [phone] Performing Lab: [place] [phone] [place] [address] OWN CBC/PLT PLATELET MEAN VOLUME [ENTITIC VOLUME] IN BLOOD 11.6 fL 9.0 - 13.1 10/25 Specimen Type: BLOOD No comment entered. Ordering Provider: Bashir BARRIENTOS Report Released Date/Time: Oct 16, 2024 08:32 AM Reporting Lab: [place] [phone] Performing Lab: [place] [phone] [place] [address] OWN CBC/PLT ERYTHROCYTE DISTRIBUTIO N WIDTH [ENTITIC VOLUME] BY AUTOMATED COUNT 11.9 11.0 - 16.0 10/25 Specimen Type: BLOOD No comment entered. Ordering Provider: Bashir BARRIENTOS Report Released Date/Time: Oct 16, 2024 08:32 AM Reporting Lab: [address] [address] Performing Lab: [address] [address] [facility] OWN CBC/PLT NUCLEATED ERYTHROCYTE S/100 ERYTHROCYTE S IN BLOOD 0.0 0.0 - 0.0 10/25 Specimen Type: BLOOD No comment entered. Ordering Provider: Bashir BARRIENTOS Report Released Date/Time: Oct 16, 2024 08:32 AM Reporting Lab: [address] [address] Performing Lab: [place] [phone] [facility] OWN FERRITIN FERRITIN [MASS/VOLUM E] IN SERUM OR PLASMA 394.3 ng/mL 21.8 - 274.7 10/25 H Specimen Type: PLASMA No comment entered. Ordering Provider: Bashir BARRIENTOS Report Released Date/Time: Oct 16, 2024 08:32 AM Reporting Lab: [place] [phone] Performing Lab: [place] [phone] [facility] OWN FOLATE FOLATE [MASS/VOLUM E] IN SERUM OR PLASMA 8.1 ng/mL 7.0 - 31.4 10/25 Specimen Type: PLASMA Comment: Vitamin B12 test may not yield results when protein level of sample is too elevated. Ordering Provider: Bashir BARRIENTOS Report Released Date/Time: Oct 16, 2024 08:32 AM Reporting Lab: [place] [phone] Performing Lab: [place] [phone] [facility] OWN IRON/TIBC IRON [MOLES/VOLU ME] IN SERUM OR PLASMA 94 ug/dL 65 - 175 10/25 Specimen Type: PLASMA No comment entered. Ordering Provider: Bashir BARRIENTOS Report Released Date/Time: Oct 16, 2024 08:32 AM Reporting Lab: [address] [address] Performing Lab: [address] [address] [facility] OWN IRON/TIBC IRON BINDING CAPACITY [MASS/VOLUM E] IN SERUM OR PLASMA 294 mg/dL 250 - 425 10/25 Specimen Type: PLASMA No comment entered. Ordering Provider: Bashir BARRIENTOS Report Released Date/Time: Oct 16, 2024 08:32 AM Reporting Lab: [address] [address] Performing Lab: [place] [phone] [facility] OWN IRON/TIBC IRON SATURATION [MOLAR FRACTION] IN SERUM OR PLASMA 32 20 - 50 10/25 Specimen Type: PLASMA No comment entered. Ordering Provider: Bashir BARRIENTOS Report Released Date/Time: Oct 16, 2024 08:32 AM Reporting Lab: [address] [address] Performing Lab: [place] [phone] [facility] OWN METHYLMAL ONIC ACID (SERUM) METHYLMALON ATE [MOLES/VOLU ME] IN SERUM OR PLASMA 226 nmol/L 0 - 378 10/25 Specimen Type: SERUM No comment entered. Ordering Provider: Bashir BARRIENTOS Report Released Date/Time: Oct 16, 2024 08:32 AM Reporting Lab: [address] [address] Performing Lab: [place] [phone] [facility] OWN RETIC COUNT (AUTOMATE D) RETICULOCYT ES/100 ERYTHROCYTE S IN BLOOD BY AUTOMATED COUNT 1.33 0.5 - 2.3 10/25 Specimen Type: BLOOD No comment entered. Ordering Provider: Bashir BARRIENTOS Report Released Date/Time: Oct 16, 2024 08:32 AM Reporting Lab: [address] [address] Performing Lab: [address] [address] [facility] OWN CBC/PLT LEUKOCYTES [#/VOLUME] IN BLOOD BY AUTOMATED COUNT 6.3 10*3/u L 5.0 - 10.0 10/09 Specimen Type: BLOOD No comment entered. Ordering Provider: BARBARA ASHRAF Report Released Date/Time: Jul 28, 2024 07:36 PM Reporting Lab: [place] [phone] Performing Lab: [place] [phone] [place] [address] OWN CBC/PLT ERYTHROCYTE S [#/VOLUME] IN BLOOD BY AUTOMATED COUNT 4.38 10*6/u L 4.6 - 6.2 10/09 L Specimen Type: BLOOD No comment entered. Ordering Provider: BARBARA ASHRAF Report Released Date/Time: Jul 28, 2024 07:36 PM Reporting Lab: [place] [phone] Performing Lab: [place] [phone] [place] [address] OWN CBC/PLT HEMOGLOBIN [MASS/VOLUM E] IN BLOOD 12.6 g/dL 14.0 - 18.0 10/09 L Specimen Type: BLOOD No comment entered. Ordering Provider: BARBARA ASHRAF Report Released Date/Time: Jul 28, 2024 07:36 PM Reporting Lab: [place] [phone] Performing Lab: [place] [phone] [place] [address] OWN CBC/PLT HEMATOCRIT [VOLUME FRACTION] OF BLOOD BY AUTOMATED COUNT 39.5 42.0 - 52.0 10/09 L Specimen Type: BLOOD No comment entered. Ordering Provider: BARBARA ASHRAF Report Released Date/Time: Jul 28, 2024 07:36 PM Reporting Lab: [address] [address] Performing Lab: [place] [phone] OWN CBC/PLT MCV [ENTITIC VOLUME] BY AUTOMATED COUNT 90.2 fL 80.0 - 94.0 10/09 Specimen Type: BLOOD No comment entered. Ordering Provider: BARBARA ASHRAF Report Released Date/Time: Jul 28, 2024 07:36 PM Reporting Lab: [address] [address] Performing Lab: [place] [phone] [place] [address] OWN CBC/PLT MCH [ENTITIC MASS] BY AUTOMATED COUNT 28.8 pg 27.0 - 31.0 10/09 Specimen Type: BLOOD No comment entered. Ordering Provider: BARBARA ASHRAF Report Released Date/Time: Jul 28, 2024 07:36 PM Reporting Lab: [address] [address] Performing Lab: [place] [phone] [place] [address] OWN CBC/PLT MCHC [MASS/VOLUM E] BY AUTOMATED COUNT 31.9 g/dL 32.0 - 36.0 10/09 L Specimen Type: BLOOD No comment entered. Ordering Provider: BARBARA ASHRAF Report Released Date/Time: Jul 28, 2024 07:36 PM Reporting Lab: [address] [address] Performing Lab: [place] [phone] [place] [address] OWN CBC/PLT PLATELETS [#/VOLUME] IN BLOOD 189 10*3/u L 150 - 450 10/09 Specimen Type: BLOOD No comment entered. Ordering Provider: BARBARA ASHRAF Report Released Date/Time: Jul 28, 2024 07:36 PM Reporting Lab: [address] [address] Performing Lab: [address] [phone] [place] [address] OWN CBC/PLT PLATELET MEAN VOLUME [ENTITIC VOLUME] IN BLOOD 11.7 fL 9.0 - 13.1 10/09 Specimen Type: BLOOD No comment entered. Ordering Provider: BARBARA ASHRAF Report Released Date/Time: Jul 28, 2024 07:36 PM Reporting Lab: [address] [address] Performing Lab: [address] [address] [facility] OWN CBC/PLT ERYTHROCYTE DISTRIBUTIO N WIDTH [ENTITIC VOLUME] BY AUTOMATED COUNT 12.0 11.0 - 16.0 10/09 Specimen Type: BLOOD No comment entered. Ordering Provider: BARBARA ASHRAF Report Released Date/Time: Jul 28, 2024 07:36 PM Reporting Lab: [place] [phone] Performing Lab: [place] [phone] [facility] OWN CBC/PLT NUCLEATED ERYTHROCYTE S/100 ERYTHROCYTE S IN BLOOD 0.0 0.0 - 0.0 10/09 Specimen Type: BLOOD No comment entered. Ordering Provider: BARBARA ASHRAF Report Released Date/Time: Jul 28, 2024 07:36 PM Reporting Lab: [place] [phone] Performing Lab: [place] [phone] [facility] OWN MICROALBU MIN/CREAT RATIO CREATININE [MASS/VOLUM E] IN URINE 127.5 mg/dL 07/24 Specimen Type: URINE No comment entered. Ordering Provider: BARBARA ASHRAF Report Released Date/Time: Jul 24, 2024 09:59 AM Reporting Lab: [place] [phone] Performing Lab: [place] [phone] [facility] OWN MICROALBU MIN/CREAT RATIO MICROALBUMI N [MASS/VOLUM E] IN URINE 15.9 mg/L 0.0 - 30.0 07/24 Specimen Type: URINE No comment entered. Ordering Provider: BARBARA ASHRAF Report Released Date/Time: Jul 24, 2024 09:59 AM Reporting Lab: [address] [address] Performing Lab: [place] [phone] [facility] OWN MICROALBU MIN/CREAT RATIO MICROALBUMI N/CREATININ E [MASS RATIO] IN URINE 12.5 ug/mg{ creat} 07/24 Specimen Type: URINE No comment entered. Ordering Provider: BARBARA ASHRAF Report Released Date/Time: Jul 24, 2024 09:59 AM Reporting Lab: [address] [address] Performing Lab: [address] [phone] [facility] Vital Signs Combined list of inpatient and outpatient Vital Signs from Department of [facility] and [facility], ranging from 12 months to all on record, depending upon the facility. Vital Sign Value Date Comments Source SYSTOLIC BLOOD PRESSURE 138 07/24/2024 09:30:05 [facility] DIASTOLIC BLOOD PRESSURE 83 07/24/2024 09:30:05 [facility] PULSE OXIMETRY 99 07/24/2024 09:30:05 [facility] 0 07/24[facility]24 09:30:05 [facility] HEIGHT 71 07/24/2024 09:30:05 [facility] TEMPERATURE 96.7 07/24/2024 09:30:05 [facility] 73 07/24/2024 09:30:05 VIV[facility]IN [facility] RESPIRATION 18 07/24/2024 09:30:05 [facility] Encounters Combined list of: 1) Encounters from Department of Veterans Affairs facilities going backup to the last 18 months, not all [place] inpatient encounters are included; 2) Encounters from the Department of [facility] facilities going backup to 280 months. Location Location Details Encounter Type Encounter Number Reason For Visit Attending Provider ADM Date DC Date Status Disposition Source [facility] Outpatient Encounter [id number] [facility] Out[facility] Encounter [id number] 07/09 [place] RANDY MARIANO [facility] Outpatient Encounter [id number] 07/11 RANDY MARIANO [facility] Outpatient Encounter [id number] 07/11 [place] [facility] [facility] MIN [id number] Diagnos is: ICD-10- CM E11.8 Type 2 diabete s mellitu s with unspeci fied complic ations FLAREY,ANT HONY PETER 07/24 RANDY MARIANO [facility] FEE [id number] Diagnos is: ICD-10- CM E11.9 Type 2 diabete s mellitu s without complic ations FLAREY,ANT HONY PETER 07[facility] [place] [facility]10 MIN [id number] Diagnos is: ICD-10- CM E11.9 Type 2 diabete s mellitu s without complic ations DEANA REYNOSO A 08/05 [place] [facility] PRO PHONE CALL 5-10 MIN [id number] Diagnos is: ICD-10- CM Z71.89 Other specifi ed counseling psychologist ing DEANA REYNOSO A 10/23 [place] [facility] HC PRO PHONE CALL 5-10 MIN [phone] Diagnos is: ICD-10- CM Z71.2 Person consult ing for explana tion of exam or test finding s KENNEDI VELIZ 11/07 [place] [facility] Social History Combined list of available smoking, tobacco, and other social history from [facility] and [facility] facilities. Social History Type Response Date Comment Sourc e Tobacco smoking status [facility] NEVER USED 07/24/2024 [facility] [place] [facility] tobacco use [place] 07/31/2023 [facility] History of tobacco use V9 LIFETIME NON-USER OF TOBACCO 07/09/2018 [facility] History of tobacco use V9 LIFETIME NON-USER OF TOBACCO 06/28/2017 [facility] History of tobacco use V9 LIFETIME NON-USER OF TOBACCO 06/15/2016 [facility] History of tobacco use V9 LIFETIME NON-USER OF TOBACCO 07/13/2015 [facility] History of tobacco use V9 LIFETIME NON-USER OF TOBACCO 07/11/2014 [facility] History of tobacco use V9 LIFETIME NON-USER OF TOBACCO 06/24/2013 [facility] History of tobacco use V9 LIFETIME NON-USER OF TOBACCO 06/19/2012 [facility]
--- OUTSIDE RECORDS SUMMARY | 2025-03-07 10:49 | XMS_ITS | Data Portability ---
Author Organization [facility] [place] BLANCO Rodriguez [place] CLOS[facility] Address [address] [place] [address] Care Team Providers Care Concreting Supervisor Name Role Phone MARILEEAME DENNISON Primary Care Provider [phone] Assessment No assessment recorded. Plan of Treatment Reminders Order Date Submit Date Provider Last Modified By Organization Details Last Modified Time Details Appointments RECHECK 2024 01:00P Estrada ORNELAS MD Not available Not available Not available RECHECK 2024 01:00P Estrada ORNELAS MD Not available Not available Not available Lab urinalysi s panel, auto 2024 025 [email or web address] [facility], [address], [place], [address], 03/06/2025 22:24:14 PSA, serum or plasma 2024 025 [email or web address] [facility], [address], [place], [address], 03/06/2025 22:24:13 urinalysi s panel, auto 2023 024 [email or web address] [facility], [address], [place], [address], 07/26/2024 12:07:34 PSA, serum or plasma 2023 024 [email or web address] [facility], [address], [place], [address], 07/26/2024 12:08:40 urinalysi s panel, auto 2023 024 [email or web address] [facility], [address], [place], [address], 01/10/2024 00:04:15 PSA, serum or plasma 2023 024 [email or web address] [facility], [address], [place], [address], 01/10/2024 00:04:16 PSA, serum or plasma [address] [facility], [address], [place], [address], 04/05/2023 13:11:01 urinalysi s panel, auto 2022 023 [email or web address] [facility], [address], [place], [address], 04/04/2023 15:29:38 urinalysi s panel, auto 2021 022 [email or web address] [facility], [address], [place], [address], 08/22/2022 15:37:42 culture, urine 2021 022 [facility], [address] [place] [address], [place], [address], 08/23/2022 10:46:29 PSA, serum or plasma 2021 [email or web address] [facility], [address], [place], [address], 08/22/2022 15:37:42 Referral None recorded. Procedures None recorded. Surgeries None recorded. Imaging None recorded. Medication Orders sildenafi l 100 mg tablet [address] [facility], [address], [address], 07/26/2024 12:07:38 tamsulosi n 0.4 mg capsule [address] [facility], [address], [address], 01/10/2024 00:04:26 tamsulosi n 0.4 mg capsule [address] [facility], [address], [address], 08/22/2022 12:07:03 Patient TargetsNo targets recorded. Patient InstructionsNo instructions recorded. Reason for Referral None Reported. Results Created Date Observation Date Name Description Value Unit Range Abnormal Flag Note LastModifiedBy Organization Detail LastModifiedTime 08/22/2008/22/2022 URINE CULTU RE results [facility] e: CCUR Colle cted: 08/22 12:05 Site: Recei forrets : 08/22 15:32 URINE CULTU RE FINAL 08/24 13:01 08/23 ISOLA TE #1 COLON Y COUNT : > 100,0 00 CFU/M L Proba ble Staph yloco ccus sp.; ID and sensi tivit y in progr ess. 08/24 See [place] Res[place] t(s) Below ISOLA ELANA AND SENSI TIVIT Y RESUL TS [place] 01 Staph yloco ccus epide rmidi s __ [place] ORG# 01 ANTIB IOTIC S ART INT __ Amox/ K Clav' ate(c ) <=4/2 S Amp/S ulbac vasquez(c ) <=8/4 S Ampic illin <=2 ZEE Cefaz carley <=4 S Cipro floxa osbaldo <=1 S Genta micin <=4 S Levof loxac in <=1 S Nitro furan toin <=32 S Oxaci llin <=0.2 5 S Rifam pin <=1 S Tetra cycli ne <=4 S Trime th/Sweet lfa <=0.5 /9.5 S Vanco mycin 2 S Not Available [facility], [place], [address], 08/24/2022 13:01:21 08/22/20 22 08/22/2022 PSA, serum or plasm a PSA 5.6 NG/mL 0.0 - 4.0 Not Available [facility] [address], [place], [address], 08/22/2022 11:46:38 08/22/20 22 08/22/2022 urina lysis panel , auto Unknown Analyte Clean Catch Not Available Pending sale to [facility] [address] [place] [address] [address], [place], [address], 08/22/2022 11:45:49 08/22/2008/22/2022 urina lysis panel , auto Unknown Analyte Yellow Not Available [facility] [address], [place], [address], 08/22/2022 11:45:49 08/22/2008/22/2022 urina lysis panel , auto Unknown Analyte Cloudy Not Available [facility] [address], [place], [address], 08/22/2022 11:45:49 08/22/2008/22/2022 urina lysis panel , auto Unknown Analyte 1.015 Not Available [facility] [address], [place], [address], 08/22/2022 11:45:49 08/22/2008/22/2022 urina lysis panel , auto Unknown Analyte 1.003- 1.035 Not Available Pending sale to [facility] [address], [place], [address], 08/22/2022 11:45:49 08/22/2008/22/2022 urina lysis panel , auto Unknown Analyte 5.0 Not Available [facility] [address], [place], [address], 08/22/2022 11:45:49 08/22/2008/22/2022 urina lysis panel , auto Unknown Analyte 5.0-8. 0 Not Available Pending sale to [facility] [address], [place], [address], 08/22/2022 11:45:49 08/22/2008/22/2022 urina lysis panel , auto Unknown Analyte 500 Jina/ul (++) Not Available [facility] [address], [place], [address], 08/22/2022 11:45:49 08/22/2008/22/2022 urina lysis panel , auto Unknown Analyte Negati ve Not Available [facility] [address], [place], [address], 08/22/2022 11:45:49 08/22/2008/22/2022 urina lysis panel , auto Unknown Analyte POSITI VE (Abnor mal) Not Available [facility] [address], [place], [address], 08/22/2022 11:45:49 08/22/2008/22/2022 urina lysis panel , auto Unknown Analyte Negati ve Not Available [facility] [address], [place], [address], 08/22/2022 11:45:49 08/22/2008/22/2022 urina lysis panel , auto Unknown Analyte Trace Not Available [facility] [address], [place], [address], 08/22/2022 11:45:49 08/22/2008/22/2022 urina lysis panel , auto Unknown Analyte Negati ve Not Available [facility] [address], [place], [address], 08/22/2022 11:45:49 08/22/2008/22/2022 urina lysis panel , auto Unknown Analyte >1000 mg/dl Not Available Pending sale to [facility] [address], [place], [address], 08/22/2022 11:45:49 08/22/2008/22/2022 urina lysis panel , auto Unknown Analyte Normal Not Available [facility] [address], [place], [address], 08/22/2022 11:45:49 08/22/2008/22/2022 urina lysis panel , auto Unknown Analyte Negati ve Not Available [facility] [address], [place], [address], 08/22/2022 11:45:49 08/22/2008/22/2022 urina lysis panel , auto Unknown Analyte Negati ve Not Available [facility] [address], [place], [address], 08/22/2022 11:45:49 08/22/2008/22/2022 urina lysis panel , auto Unknown Analyte Normal Not Available [facility] [address], [place], [address], 08/22/2022 11:45:49 08/22/2008/22/2022 urina lysis panel , auto Unknown Analyte Normal 1 mg/dl Not Available [facility] [address], [place], [address], 08/22/2022 11:45:49 08/22/2008/22/2022 urina lysis panel , auto Unknown Analyte Negati ve Not Available [facility] [address], [place], [address], 08/22/2022 11:45:49 08/22/2008/22/2022 urina lysis panel , auto Unknown Analyte Negati ve Not Available [facility] [address] [place] [address] [address], [place], [address], 08/22/2022 11:45:49 08/22/2008/22/2022 urina lysis panel , auto Unknown Analyte 50 Jose Luis/ul Not Available [facility] [address] [address], [address], 08/22/2022 11:45:49 08/22/2008/22/2022 urina lysis panel , auto Unknown Analyte Negati ve Not Available [facility] [address], [address], 08/22/2022 11:45:49 04/04/2004/04/2023 PSA, serum or plasm a PSA 5.5 NG/mL 0.0 - 4.0 Not Available [facility] [address] [address], [place], [address], 04/04/2023 16:54:53 04/04/2004/04/2023 urina lysis panel , auto Unknown Analyte Clean Catch Not Available [facility] [address], [place], [address], 04/04/2023 14:47:31 04/04/2004/0404/04/2023 urina lysis panel , auto Unknown Analyte Yellow Not Available [facility] [address], [place], [address], 04/04/2023 14:47:31 04/04/20 23 04/04/2023 urina lysis panel , auto Unknown Analyte Clear Not Available [facility] [address], [place], [address], 04/04/2023 14:47:31 04/04/2004/04/2023 urina lysis panel , auto Unknown Analyte 1.020 Not Available [facility] [address], [place], [address], 04/04/2023 14:47:31 04/04/2004/04/2023 urina lysis panel , auto Unknown Analyte 1.003- 1.035 Not Available [facility] [address], [place], [address], 04/04/2023 14:47:31 04/04/20 23 04/04/2023 urina lysis panel , auto Unknown Analyte 5.0 Not Available [facility] [address], [place], [address], 04/04/2023 14:47:31 04/04/2004/04/2023 urina lysis panel , auto Unknown Analyte 5.0-8. 0 Not Available [facility] [address], [place], [address], 04/04/2023 14:47:31 04/04/2004/04/2023 urina lysis panel , auto Unknown Analyte Negati ve Not Available [facility] [address], [place], [address], 04/04/2023 14:47:31 04/04/20 23 04/04/2023 urina lysis panel , auto Unknown Analyte Negati ve Not Available [facility] [address], [place], [address], 04/04/2023 14:47:31 04/04/2004/04/2023 urina lysis panel , auto Unknown Analyte Negati ve Not Available [facility] [address], [place], [address], 04/04/2023 14:47:31 04/04/2004/04/2023 urina lysis panel , auto Unknown Analyte Negati ve Not Available [facility] [address], [place], [address], 04/04/2023 14:47:31 04/04/2004/04/2023 urina lysis panel , auto Unknown Analyte 30 mg/dl (+) Not Available [facility] [address], [place], [address], 04/04/2023 14:47:31 04/04/2004/04/2023 urina lysis panel , auto Unknown Analyte Negati ve Not Available [facility] [address], [place], [address], 04/04/2023 14:47:31 04/04/2004/04/2023 urina lysis panel , auto Unknown Analyte >1000 mg/dl Not Available [facility] [address], [place], [address], 04/04/2023 14:47:31 04/04/20 23 04/04/2023 urina lysis panel , auto Unknown Analyte Normal Not Available [facility] [address], [place], [address], 04/04/2023 14:47:31 04/04/2004/04/2023 urina lysis panel , auto Unknown Analyte Negati ve Not Available [facility] [address], [place], [address], 04/04/2023 14:47:31 04/04/20 23 04/04/2023 urina lysis panel , auto Unknown Analyte Negati ve Not Available [facility] [address], [place], [address], 04/04/2023 14:47:31 04/04/20 23 04/04/2023 urina lysis panel , auto Unknown Analyte Normal Not Available [facility] [address], [place], [address], 04/04/2023 14:47:31 04/04/2004/04/2023 urina lysis panel , auto Unknown Analyte Normal 1 mg/dl Not Available [facility] [address], [place], [address], 04/04/2023 14:47:31 04/04/20 23 04/04/2023 urina lysis panel , auto Unknown Analyte Negati ve Not Available [facility] [address], [place], [address], 04/04/2023 14:47:31 04/04/20 23 04/04/2023 urina lysis panel , auto Unknown Analyte Negati ve Not Available [facility] [address] [place] [address] [address], [place], [address], 04/04/2023 14:47:31 04/04/2004/04/2023 urina lysis panel , auto Unknown Analyte Negati ve Not Available [facility] [address], [place], [address], 04/04/2023 14:47:31 04/04/2004/04/2023 urina lysis panel , auto Unknown Analyte Negati ve Not Available [facility] [address], [place], [address], 04/04/2023 14:47:31 01/09/20 24 01/09/2024 PSA, serum or plasm a PSA 5.9 NG/mL 0.0 - 4.0 Not Available [facility] [address], [place], [address], 01/09/2024 14:52:15 01/09/2001/09/2024 urina lysis panel , auto Unknown Analyte Clean Catch Not Available [facility] [address], [place], [address], 01/09/2024 13:47:10 01/09/20 24 01/09/2024 urina lysis panel , auto Unknown Analyte Yellow Not Available [facility] [address], [place], [address], 01/09/2024 13:47:10 01/09/20 24 01/09/2024 urina lysis panel , auto Unknown Analyte Clear Not Available [facility] [address], [place], [address], 01/09/2024 13:47:10 01/09/20 24 01/09/2024 urina lysis panel , auto Unknown Analyte 1.015 Not Available [facility] [address], [place], [address], 01/09/2024 13:47:10 01/09/20 24 01/09/2024 urina lysis panel , auto Unknown Analyte 1.003- 1.035 Not Available [facility] [address], [place], [address], 01/09/2024 13:47:10 01/09/20 24 01/09/2024 urina lysis panel , auto Unknown Analyte 6.5 Not Available [facility] [address], [place], [address], 01/09/2024 13:47:10 01/09/20 24 01/09/2024 urina lysis panel , auto Unknown Analyte 5.0-8. 0 Not Available [facility] [address], [place], [address], 01/09/2024 13:47:10 01/09/20 24 01/09/2024 urina lysis panel , auto Unknown Analyte 75 Jina/ul (+) Not Available [facility] [address], [place], [address], 01/09/2024 13:47:10 01/09/20 24 01/09/2024 urina lysis panel , auto Unknown Analyte Negati ve Not Available [facility] [address], [place], [address], 01/09/2024 13:47:10 01/09/20 24 01/09/2024 urina lysis panel , auto Unknown Analyte Negati ve Not Available [facility] [address], [place], [address], 01/09/2024 13:47:10 01/09/20 24 01/09/2024 urina lysis panel , auto Unknown Analyte Negati ve Not Available [facility] [address], [place], [address], 01/09/2024 13:47:10 01/09/20 24 01/09/2024 urina lysis panel , auto Unknown Analyte Negati ve Not Available [facility] [address], [place], [address], 01/09/2024 13:47:10 01/09/20 24 01/09/2024 urina lysis panel , auto Unknown Analyte Negati ve Not Available Pending sale to [facility] [address], [place], [address], 01/09/2024 13:47:10 01/09/20 24 01/09/2024 urina lysis panel , auto Unknown Analyte >1000 mg/dl Not Available [facility] [address], [place], [address], 01/09/2024 13:47:10 01/09/20 24 01/09/2024 urina lysis panel , auto Unknown Analyte Normal Not Available [facility] [address], [place], [address], 01/09/2024 13:47:10 01/09/20 24 01/09/2024 urina lysis panel , auto Unknown Analyte Negati ve Not Available [facility] [address], [place], [address], 01/09/2024 13:47:10 01/09/20 24 01/09/2024 urina lysis panel , auto Unknown Analyte Negati ve Not Available [facility] [address], [place], [address], 01/09/2024 13:47:10 01/09/20 24 01/09/2024 urina lysis panel , auto Unknown Analyte Normal Not Available [facility] [address], [place], [address], 01/09/2024 13:47:10 01/09/20 24 01/09/2024 urina lysis panel , auto Unknown Analyte Normal 1 mg/dl Not Available [facility] [address], [place], [address], 01/09/2024 13:47:10 01/09/20 24 01/09/2024 urina lysis panel , auto Unknown Analyte Negati ve Not Available [facility] [address], [place], [address], 01/09/2024 13:47:10 01/09/20 24 01/09/2024 urina lysis panel , auto Unknown Analyte Negati ve Not Available [facility] [address], [place], [address], 01/09/2024 13:47:10 01/09/20 24 01/09/2024 urina lysis panel , auto Unknown Analyte Negati ve Not Available [facility] [address], [place], [address], 01/09/2024 13:47:10 01/09/20 24 01/09/2024 urina lysis panel , auto Unknown Analyte Negati ve Not Available [facility] [address], [place], [address], 01/09/2024 13:47:10 07/26/20 24 07/26/2024 PSA, serum or plasm a PSA 5.7 NG/mL 0.0 - 4.0 Not Available [facility] [address], [place], [address], 07/26/2024 11:54:34 07/26/20 24 07/26/2024 urina lysis panel , auto Unknown Analyte Clean Catch Not Available [facility] [address] [address], [place], [address], 07/26/2024 11:37:15 07/26/20 24 07/26/2024 urina lysis panel , auto Unknown Analyte Yellow Not Available [facility] [address], [place], [address], 07/26/2024 11:37:15 07/26/20 24 07/26/2024 urina lysis panel , auto Unknown Analyte Clear Not Available [facility] [address], [place], [address], 07/26/2024 11:37:15 07/26/20 24 07/26/2024 urina lysis panel , auto Unknown Analyte 1.015 Not Available [facility] [address], [place], [address], 07/26/2024 11:37:15 07/26/20 24 07/26/2024 urina lysis panel , auto Unknown Analyte 1.003- 1.035 Not Available [facility] [address], [place], [address], 07/26/2024 11:37:15 07/26/20 24 07/26/2024 urina lysis panel , auto Unknown Analyte 5.0 Not Available [facility] [address], [place], [address], 07/26/2024 11:37:15 07/26/20 24 07/26/2024 urina lysis panel , auto Unknown Analyte 5.0-8. 0 Not Available [facility] [address], [place], [address], 07/26/2024 11:37:15 07/26/20 24 07/26/2024 urina lysis panel , auto Unknown Analyte 500 Jina/ul (++) Not Available [facility] [address], [place], [address], 07/26/2024 11:37:15 07/26/20 24 07/26/2024 urina lysis panel , auto Unknown Analyte Negati ve Not Available [facility] [address], [place], [address], 07/26/2024 11:37:15 07/26/2007/26/2024 urina lysis panel , auto Unknown Analyte Negati ve Not Available [facility] [address], [place], [address], 07/26/2024 11:37:15 07/26/20 24 07/26/2024 urina lysis panel , auto Unknown Analyte Negati ve Not Available [facility] [address], [place], [address], 07/26/2024 11:37:15 07/26/20 24 07/26/2024 urina lysis panel , auto Unknown Analyte Negati ve Not Available [facility] [address] [place], [address], 07/26/2024 11:37:15 07/26/20 24 07/26/2024 urina lysis panel , auto Unknown Analyte Negati ve Not Available [facility] [address], [place], [address], 07/26/2024 11:37:15 07/26/20 24 07/26/2024 urina lysis panel , auto Unknown Analyte Normal Not Available [facility] [address], [place], [address], 07/26/2024 11:37:15 07/26/20 24 07/26/2024 urina lysis panel , auto Unknown Analyte Normal Not Available [facility] [address], [place], [address], 07/26/2024 11:37:15 07/26/20 24 07/26/2024 urina lysis panel , auto Unknown Analyte Negati ve Not Available [facility] [address], [place], [address], 07/26/2024 11:37:15 07/26/20 24 07/26/2024 urina lysis panel , auto Unknown Analyte Negati ve Not Available [facility] [address], [place], [address], 07/26/2024 11:37:15 07/26/2007/26/2024 urina lysis panel , auto Unknown Analyte Normal Not Available [facility] [address], [place], [address], 07/26/2024 11:37:15 07/26/20 24 07/26/2024 urina lysis panel , auto Unknown Analyte Normal 1 mg/dl Not Available [facility] [address], [place], [address], 07/26/2024 11:37:15 07/26/20 24 07/26/2024 urina lysis panel , auto Unknown Analyte Negati ve Not Available [facility] [address], [place], [address], 07/26/2024 11:37:15 07/26/20 24 07/26/2024 urina lysis panel , auto Unknown Analyte Negati ve Not Available [facility] [address], [place], [address], 07/26/2024 11:37:15 07/26/20 24 07/26/2024 urina lysis panel , auto Unknown Analyte Negati ve Not Available [facility] [address], [place], [address], 07/26/2024 11:37:15 07/26/20 24 07/26/2024 urina lysis panel , auto Unknown Analyte Negati ve Not Available [facility] [address], [place], [address], 07/26/2024 11:37:15 03/05/20 25 03/05/2025 urina lysis panel , auto Unknown Analyte Clean Catch Not Available [facility] [address], [place], [address], 03/05/2025 14:21:36 03/05/20 25 03/05/2025 urina lysis panel , auto Unknown Analyte Yellow Not Available [facility] [address], [place], [address], 03/05/2025 14:21:36 03/05/20 25 03/05/2025 urina lysis panel , auto Unknown Analyte Clear Not Available [facility] [address], [place], [address], 03/05/2025 14:21:36 03/05/20 25 03/05/2025 urina lysis panel , auto Unknown Analyte 1.000 Not Available [facility] [address], [place], [address], 03/05/2025 14:21:36 03/05/20 25 03/05/2025 urina lysis panel , auto Unknown Analyte 1.003 - 1.030 Not Available [facility] [address], [place], [address], 03/05/2025 14:21:36 03/05/20 25 03/05/2025 urina lysis panel , auto Unknown Analyte 6.0 Not Available [facility] [address], [place], [address], 03/05/2025 14:21:36 03/05/20 25 03/05/2025 urina lysis panel , auto Unknown Analyte 5.0 - 8.0 Not Available [facility] [address], [place], [address], 03/05/2025 14:21:36 03/05/20 25 03/05/2025 urina lysis panel , auto Unknown Analyte 500 Jina/uL Not Available [facility] [address], [place], [address], 03/05/2025 14:21:36 03/05/20 25 03/05/2025 urina lysis panel , auto Unknown Analyte Negati ve Not Available [facility] [address], [place], [address], 03/05/2025 14:21:36 03/05/20 25 03/05/2025 urina lysis panel , auto Unknown Analyte Negati ve Not Available [facility] [address], [place], [address], 03/05/2025 14:21:36 03/05/20 25 03/05/2025 urina lysis panel , auto Unknown Analyte Negati ve Not Available [facility] [address], [place], [address], 03/05/2025 14:21:36 03/05/20 25 03/05/2025 urina lysis panel , auto Unknown Analyte Negati ve Not Available [facility] [address], [place], [address], 03/05/2025 14:21:36 03/05/20 25 03/05/2025 urina lysis panel , auto Unknown Analyte Negati ve Not Available [facility] [address], [place], [address], 03/05/2025 14:21:36 03/05/20 25 03/05/2025 urina lysis panel , auto Unknown Analyte >1000 mg/dL Not Available [facility] [address], [place], [address], 03/05/2025 14:21:36 03/05/20 25 03/05/2025 urina lysis panel , auto Unknown Analyte Normal Not Available [facility] [address], [place], [address], 03/05/2025 14:21:36 03/05/20 25 03/05/2025 urina lysis panel , auto Unknown Analyte Negati ve Not Available [facility] [address], [place], [address], 03/05/2025 14:21:36 03/05/20 25 03/05/2025 urina lysis panel , auto Unknown Analyte Negati ve Not Available [facility] [address], [place], [address], 03/05/2025 14:21:36 03/05/20 25 03/05/2025 urina lysis panel , auto Unknown Analyte Normal Not Available [facility] [address], [place], [address], 03/05/2025 14:21:36 03/05/20 25 03/05/2025 urina lysis panel , auto Unknown Analyte Normal Not Available [facility] [address], [place], [address], 03/05/2025 14:21:36 03/05/20 25 03/05/2025 urina lysis panel , auto Unknown Analyte Negati ve Not Available [facility] [address], [place], [address], 03/05/2025 14:21:36 03/05/20 25 03/05/2025 urina lysis panel , auto Unknown Analyte Negati ve Not Available [facility] [address], [place], [address], 03/05/2025 14:21:36 04/23/20 25 03/05/2025 urina lysis panel , auto Unknown Analyte Negati ve Not Available Pending [facility] to [facility] [address], [place], [address], 03/05/2025 14:21:36 03/05/20 25 03/05/2025 urina lysis panel , auto Unknown Analyte Negati ve Not Available [facility] [address], [place], [address], 03/05/2025 14:21:36 03/05/20 25 03/03/2025 imagi ng/di agnos tic resul t No observ ation record ed. [email or web address] Available 2024 07:15:50 Result Notes None recorded. Problems No Known Problems Procedures Surgical History Date Name Laterality Status Provider Name and Address Organization Details Recorded Time Post Void Residual; Ultrasound completed Nicole Schwartz [facility] 03/05/2025 15:21:41 Imaging Results Imaging Date Name Status LastModified by Organiz ation Details LastModified Time 03/03/2025 imaging/diagn ostic result active [email or web address] Information not available 03/06/2025 07:15:50 Procedure Notes None recorded. Medical Equipment None Reported. Allergies No known drug allergies Medications Name Sig Start Date Stop Date Status Note LastModified by Organization Details LastModified Time metformin 500 mg tablet Take 1 tablet twice a day by oral route. active Not Available Not Available No t Available azithromyc in 250 mg tablet TAKE 2 TABLETS BY MOUTH ON DAY 1, AND THEN TAKE 1 TABLET BY MOUTH ONCE A DAY ON DAY 2 THROUGH DAY 5 08/22 completed Not Available Not Available Not Available lisinopril 20 mg tablet active Not Available Not Available Not Available prednisone 20 mg tablet 09/30 completed Not Available Not Available Not Available ciprofloxa osbaldo 500 mg tablet Take 1 tablet every 12 hours by oral route for 10 days. 04/04 completed Not Available Not Available Not Available sildenafil 100 mg tablet Take by oral route for 30 days. 2023 active Not Available Not Available Not Avai lable prednisolo ne acetate 1 % eye drops,susp ension INSTILL 1 DROP INTO EACH EYE ONCE DAILY active Not Available Not Available No t Available tamsulosin 0.4 mg capsule Take 1 capsule by mouth once daily 2023 active Not Available Not Available Not Avai lable Proctozone -HC 2.5 % topical cream perineal applicator 09/30 completed Not Available Not Available Not Available folic acid 1 mg tablet Take 1 tablet every day by oral route. active Not Available Not Available No t Available levofloxac in 500 mg tablet 03/25 completed Not Available Not Available Not Available amoxicilli n 500 mg-potassi um clavulanat e 125 mg tablet 09/30 completed Not Available Not Available Not Available nitrofuran toin monohydrat e/macrocry stals 100 mg capsule TAKE 1 CAPSULE BY MOUTH EVERY 12 HOURS WITH FOOD active Not Available Not Available No t Available Clarita 128 Daily 04/04 completed Frequen cy: daily;A lt Frequen cy: ou;Medi cation Descrip tion: sodium chlorid e, hyperto sanchez, ophthal art; Route:o phthalm ic; refills :0 Not Available Not Available Not Available B12 active Not Available Not Availa ble Not Available Jardiance 10 mg tablet Take 1 tablet every day by oral route. active Not Available Not Available No t Available Vitals Date Recorded Body height Body mass index (BMI) Body weight Provider Name and Address Organization Details Last Updated DateTime 08/22/2022 180.34 cm 24.8 kg/m2 18264.44 g Starr Vicentemarilynn [facility] 08/22/2022 11:45:26 Date Recorded Body height Body mass index (BMI) Body weight Provider Name and Address Organization Details Last Updated DateTime 04/04/2023 180.34 cm 24.3 kg/m2 79533.07 g Sindianeudy Perrygenie [facility] 04/04/2023 14:47:06 Date Recorded Body height Body mass index (BMI) Body weight Provider Name and Address Organization Details Last Updated DateTime 01/09/2024 180.34 cm 24.3 kg/m2 63294.07 g Jennifer Mazariegos [facility] 01/09/2024 14:03:33 Date Recorded Body height Body mass index (BMI) Body weight Provider Name and Address Organization Details Last Updated DateTime 07/26/2024 180.34 cm 24.3 kg/m2 62620.07 g Cris Barney [facility] 07/26/2024 11:45:41 Date Recorded Body height Body mass index (BMI) Body weight Provider Name and Address Organization Details Last Updated DateTime 03/05/2025 180.34 cm 22.3 kg/m2 93510.78 g Nicole Schwartz [facility] 03/05/2025 14:24:52 Social History Question Answer Notes LastModified by Organizat ion Details LastModified Time Tobacco Smoking Status Never Smoker Emma Arnie bourne [facility] 03/25/2020 14:44:48 What Is Your Level Of Alcohol Consumption? None [email or web address] Information not available 03/25/2020 How Much Tobacco Do You Chew? None [email or web address] Information not available 03/25/2020 Marital Status [email or web address] Informatio n not available 03/25/2020 What Was The Date Of Your Most Recent Tobacco Screening? 07/26/2024 [email or web address] Information not available 07/26/2024 How Much Tobacco Do You Smoke? No [email or web address] Information not available 03/25/2020 Do You Use Any Illicit Or Recreational Drugs? No [email or web address] Information not available 10/29/2021 Has Tobacco Cessation Counseling Been Provided? No [email or web address] Information not available 10/29/2021 Have You Recently Traveled Abroad? No Information not available 10/29/2021 Do You Or Have You Ever Used Any Other Forms Of Tobacco Or Nicotine? No [email or web address] Information not available 10/29/2021 Sex: Unknown Functional Status None recorded. Mental Status None recorded. Family History Nothing Reported. Medical History No medical history recorded. Past Encounters Encounter ID Performer Location Encounter Start Date Encounter Closed Date Diagnosis/Indication Diagnosis SNOMED-CT Code Diagnosis ICD10 Code Diagnosis Note [id number] [facility] [address] 2017 14:51:12 2017 14:51:12 [id number] JAVAN ORNELAS MD SURGERY SCHEDULE [address] [place] [address] 10/30/2019 07:13:17 10/30/2019 07:14:57 [id number] JAVAN ORNELAS MD [facility] [address] [address] 03/25/2020 14:25:26 03/25/2020 15:30:14 Prostate specific antigen above reference range 872159220 R97.20 follow-up 6 months with PSA Benign pro static hyperplasia with outflow obstruction 042186128 N40.1 [id number] JAVAN ORNELAS MD [facility] [address] [id number] 09/30/2020 14:46:02 09/30/2020 16:05:32 Prostate specific antigen above reference range 338141987 R97.20 follow-up 6 months with PSA Benign pro static hyperplasia 012291851 N40.1 [id number] JAVAN ORNELAS MD [facility] [address] [address] 03/26/2021 10:52:20 03/26/2021 12:02:57 Prostate specific antigen above reference range 927527059 R97.20 follow-up 6 months with PSA Benign pro static hyperplasia with outflow obstruction 201301302 N40.1 Continue tamsulosin Primary er ectile dysfunction 875267815 N52.9 Continue sildenafil [id number] JAVAN ORNELAS MD [facility] [address] [address] 10/29/2021 14:03:08 10/29/2021 15:39:10 Prostate specific antigen above reference range 407157821 R97.20 follow-up 6 months with PSA Benign pro static hyperplasia 968249727 N40.1 Continue tamsulosin Primary er ectile dysfunction 341923389 N52.9 Continue sildenafil [id number] JAVAN ORNELAS MD [facility] [address] 08/22/2022 11:03:05 08/23/2022 08:39:42 Urinary tract infectious disease 77353487 N39.0 Prostate s pecific antigen above reference range 363588041 R97.20 follow-up 6 months with PSA Benign pro static hyperplasia with outflow obstruction 368858745 N40.1 Continue tamsulosin [id number] Sindi Vickyon [facility] [address] [place] [address] 04/04/2023 14:03:26 04/04/2023 15:31:26 Benign prostatic hyperplasia with outflow obstruction 394341535 N40.1 Continue tamsulosin Prostate s pecific antigen above reference range 755588600 R97.20 follow-up 6 months with PSA Screening for malignant neoplasm of prostate 015507262 Z12.5 [id number] JAVAN ORNELAS MD [facility] [address] [address] 01/09/2024 13:19:09 01/09/2024 14:29:57 Prostate specific antigen above reference range 328574281 R97.20 follow-up 6 months with PSA Benign pro static hyperplasia with outflow obstruction 129792806 N40.1 Continue tamsulosin [id number] JAVAN ORNELAS MD [facility] [address] [address] 07/26/2024 09:47:31 07/26/2024 12:00:38 Primary erectile dysfunction 135961031 N52.9 Continue sildenafil Prostate s pecific antigen above reference range 528814558 R97.20 follow-up 6 months with PSA [id number] JAVAN ORNELAS MD [facility] [address] [facility] [facility] [place] [id number] 03/05/2025 13:56:44 03/05/2025 15:33:07 Benign prostatic hyperplasia with outflow obstruction 711580945 N40.1 N13.8 Continue tamsulosin twice daily follow-up 1 week with bladder scan postvoid residual. If his symptoms are not markedly improved, will encourage to consider outlet obstructio n procedure. Retention of urine 16619 4002 R33.9 As above Health Concerns Section Related Observation LastModified by Organization Detai LastModified Time None Recorded Concern Status LastModified by Organization Details LastModified Time None Recorded Advance Directives Directive None Recorded Payers Encounter Date Sequence Insurance Name Policy Number Policy Barbosa Covered Member ID Barbosa Member ID Guarantor Name 08/22/2022 1 [place] Darien Ross [id number] Darien Ross 08/22/2022 2 [employer] (MEDICARE SUPPLEMENT) Darien Ross [id number] Darien Ross 04/04/2023 1 [place] Darien Ross [id number] Darien Ross 04/04/2023 2 [employer] (MEDICARE SUPPLEMENT) Darien Ross [id number] Darien Ross 01/09/2024 1 [place] Darien Ross [id number] Darien Ross 01/09/2024 2 [employer] (MEDICARE SUPPLEMENT) Darien Ross [id number] Darien Ross 07/26/2024 1 [place] Darien Ross [id number] Darien Ross 07/26/2024 2 [employer] (MEDICARE SUPPLEMENT) Darien Ross [id number] Darien Ross 03/05/2025 1 [place] Darien Ross [id number] Darien Ross 03/05/2025 2 [employer] (MEDICARE SUPPLEMENT) Darien Ross [id number] Darien Ross Notes Date Note Type Note Provider Name and Address Organization Details Recorded Time 08/22/2022 text/html patient is here in 6 month follow-up regarding malleoli PSA last visit in October was his PSA as high as 11 time needle biopsy PSA today was 5.6 his urine today is also nitrite positive. He has no voiding complaints. He does take tamsulosin once per day and typically has nocturia ? 2 . We will culture his urine. [facility] JAVAN ORNELAS MD [address] [place] [address], [phone], [facility] 08/22/2022 12:07:28 04/04/2023 text/html Patient is here with history of elevated and fluctuating PSA. He had a prostate biopsy for PSA of 11 last year. He is PSA 6 months ago was down to 5.6 and today is 5.5. He takes tamsulosin once per day. He typically has nocturia x1. Sindi bourne, [facility] 04/04/2023 16:55:20 01/09/2024 text/html Patient is here for yearly follow-up. Has previous history of mildly elevated and fluctuating PSA. He had negative needle biopsy of the prostate last year for PSA of 11. Following that his PSA was down to 5.6 and his last visit 5.5. PSA is pending today. He continues to void well. He has nocturia x 0-1 while taking tamsulosin. JAVAN ORNELAS MD [address] [place] [address], [phone], [facility] 01/10/2024 00:05:04 07/26/2024 text/html Patient is here for scheduled 6-month follow-up due to mildly elevated and fluctuating PSA. He had a negative needle biopsy of prostate last year for PSA of 11. A year ago his PSA was down to 5.6 in December 5 0.9. PSA today is stable at 5.7. He has no major issues. He is no longer taking tamsulosin. He does however take 100 mg of sildenafil and requests a refill. JAVAN ORNELAS MD [address] [place] [address], [phone], [facility] 08/06/2024 23:34:38 03/05/2025 text/html Patient is here last seen July. He has previous history of obstructive urination symptoms but was doing well at that time on tamsulosin twice daily. He typically have nocturia x 2-3. He also has previous elevated PSA which fluctuated. His PSA in July was down to 5.7. He is complaining at this time his urinary incontinence. He will often have a large urgency and leak a large amount of urine. His urine today has moderate leukocytes but nitrite negative. His bladder scan residual was 858 mL. I suggest we arrange for intervention. He would like to see if the medical therapy would improve. He will follow-up in 1 week with repeat bladder scan postvoid residual. Apparently he has not been taking his tamsulosin as prescribed and he will be more diligent. He is here today with his . JAVAN ORNELAS [facility] [place], [id number], [facility] 03/06/2025 22:25:05
--- NOTE | 2025-03-07 10:50 | CT_ITS ---
FINAL REPORT TECHNIQUE: Axial images through the abdomen and pelvis were performed without contrast. This study was performed with techniques to keep radiation doses as low as reasonably achievable, (ALARA). Individualized dose reduction techniques using automated exposure control or adjustment of mA and/or kV according to the patient's size were employed. CLINICAL HISTORY: HYDRONEPHROSIS COMPARISON: None FINDINGS: Abdomen: The lung bases are clear. The liver parenchyma is homogeneous. The gallbladder is present and contains multiple gallstones. The spleen contains calcified granulomas, and there are tiny calcifications in the pancreas that are likely secondary to changes of chronic pancreatitis. The adrenal glands are unremarkable in appearance. There is bilateral marked hydronephrosis present, with the ureters dilated to the level of the bladder. No nephrolithiasis is identified. Pelvis: The posterior bladder wall demonstrates mild diffuse irregularity, but no definite localized masses identified. No ureteral stones are identified. The appendix is normal in appearance. There is no pelvic mass or inflammation. IMPRESSION: Prominent bilateral hydronephrosis with hydroureter to the level of the bladder. No definite focal mass or stone is identified. Urologic consultation is recommended, and cystoscopy may be of value. Multiple gallstones are present in the gallbladder. Reviewed, Interpreted and Dictated by Dejuan Leung MD Transcribed by Dolly Hendrickson Authenticated and [facility]
== END 2025-03-07 23:59 | disposition home or self-care (01) ==
LOC: RAD 10:48
PROVIDERS: PCP Internal Medicine Adolescent Medicine; Visit Provider Internal Medicine Adolescent Medicine
DX: N13.30 Unspecified hydronephrosis (principal)
CPT/HCPCS: 74176

== ENCOUNTER 2025-03-18 01:59 | Observation (INO) | payer MEDICARE, SELFPAY ==
[2025-03-18] VITALS (10 sets, daily range): BP systolic 74–164; BP diastolic 51–91; PULSE 80–120; RESP 14–23; TEMP 36.4–36.6; O2SAT 94–100; BMI 21.7; BMI 22.5
--- NOTE | 2025-03-18 01:55 | ED_ITS ---
Discharge Plan Disposition Patient Disposition: Admitted Condition: Good Chief Complaint: Fall Clinical Impressions Clinical Impression: Syncope, Urinary tract infection, Hypomagnesemia, Orthostatic hypotension, CIERRA (acute kidney injury) Discharge ED Provider: Eh Wasserman Adult HPI General Chief complaint: Fall Stated complaint: near syncope Time Seen by Provider: 03/18/25 02:09 History of Present Illness HPI narrative: 85-year-old male with history of diabetes and a laser prostate surgery on Monday of last week presents for syncope. He reports that when he got up yesterday morning he felt kind of dizzy but did not fall. Tonight he has fallen twice after getting up, striking his head both times. He does not remember falling. He denies any headache neck pain back pain chest pain abdominal pain shortness of breath or any other symptoms either preceding or after the falls. He has a laceration to the nose and to the right eyebrow. He denies any history of significant cardiac pathology. He has a catheter in place. Family reports that he has been peeing a lot more than normal recently up until today when he has been peeing less. He was started on Jardiance by his PCP within the last week or 2. He is on nitrofurantoin and doxycycline from the urologist after the procedure. Related Data Home Medications ?Medication ?Instructions ?Recorded ?Confirmed atorvastatin 20 mg tablet 20 mg PO DAILY 06/04/19 10/22/19 lisinopril 10 mg tablet 10 mg PO DAILY 06/04/19 10/22/19 sildenafil 25 mg tablet 25 mg PO DAILY PRN 06/04/19 10/22/19 Allergies Allergy/AdvReac Type Severity Reaction Status Date / Time No Known Allergies Allergy Verified 03/18/25 02:00 [facility] Disclaimer: The information contained in this section may have been updated after the patient was seen, as this information can be updated by other users. Social History Smoking Status: Never smoker alcohol intake: never substance use type: denies use current occupational status: retired Travel in the last 8 weeks?: None Other Medical History Have you received the Pneumonia Vaccine: No ROS Obtained: Yes All systems reviewed & no additional complaints except as documented Physical Exam General General appearance: alert and in no apparent distress Head Head exam: normocephalic and other (Laceration to the right eyebrow, laceration to the bridge of the nose) Eye Eye exam: Present normal appearance, PERRL and EOMI ENT ENT exam: Present normal oropharynx and normal external ear exam Neck Neck exam: Present normal inspection and full ROM; Absent tenderness Chest Chest inspection: Present normal inspection and symmetric chest wall rise; Absent tenderness Respiratory Respiratory exam: Present normal lung sounds bilaterally; Absent respiratory distress Cardiovascular Cardiovascular exam: Present regular rate and normal rhythm Abdominal Exam Abdominal exam: Present soft; Absent distention, tenderness or guarding Extremities Exam Extremities exam: Present normal inspection; Absent edema or joint swelling Back Exam Back exam: Present normal inspection; Absent tenderness Neurological Exam Neurological exam: Present alert and oriented X3; Absent motor sensory deficit Psychiatric Psychiatric exam: Present normal affect and normal mood Skin Skin exam: Present warm, dry and normal color Lymphatic Lymphatic Findings: no adenopathy Medical Decision Making Medical Records Medical records reviewed: Yes I reviewed the patient's medical records. Screening: Per USPSTF and CDC recommendations, given the prevalence of disease in our region, it is our hospital?s policy to screen for HIV and viral Hepatitis for all patients aged 18 and over and those with ongoing risk factors. Leroy Inquiry Pt receiving controlled substance: No Leroy was queried for this patient: No Vital Signs: 03/18/25 01:55 03/18/25 02:03 03/18/25 02:31 Pulse Rate 93 H Pulse Rate [Apical] 104 H Pulse Rate [Orthostatic Lying Radial] 102 H Pulse Rate [Orthostatic Sitting Radial] 115 H Pulse Rate [Orthostatic Standing Radial] 104 H Respiratory Rate 20 23 Blood Pressure 142/78 H Blood Pressure [Orthostatic Lying Right Arm] 164/91 H Blood Pressure [Orthostatic Sitting Right Arm] 123/81 Blood Pressure [Orthostatic Standing Right Arm] 74/51 L Blood Pressure [Right Arm] 164/91 H Blood Pressure Mean [Right Arm] 115 02 Sat by Pulse Oximetry 95 98 Oxygen Delivery Method Room Air Room Air 03/18/25 03:00 Pulse Rate 98 H Pulse Rate [Apical] Pulse Rate [Orthostatic Lying Radial] Pulse Rate [Orthostatic Sitting Radial] Pulse Rate [Orthostatic Standing Radial] Respiratory Rate 14 Blood Pressure 155/87 H Blood Pressure [Orthostatic Lying Right Arm] Blood Pressure [Orthostatic Sitting Right Arm] Blood Pressure [Orthostatic Standing Right Arm] Blood Pressure [Right Arm] Blood Pressure Mean [Right Arm] 02 Sat by Pulse Oximetry 99 Oxygen Delivery Method Room Air Lab Data Lab results reviewed: Yes I reviewed the patient's lab results. Lab Results 03/18/25 01:50: WBC 11.5 H, RBC 4.45 L, Hgb 12.7 L, Hct 37.6 L, MCV 84.5, MCH 28.5, MCHC 33.8, RDW 11.5, Plt Count 213, MPV 10.6 H, Neut % (Auto) 82.3 H, L ymph % (Auto) 9.5 L, [facility] % (Auto) 6.9, Eos % (Auto) 0.6, Baso % (Auto) 0.3, N eut # (Auto) 9.5 H, Lymph # (Auto) 1.1, [facility] # (Auto) 0.8, Eos # (Auto) 0.1, Baso # (Auto) 0.0, PT 11.4, INR 1.02, Sodium 134 L, Potassium 4.4, Chloride 101, Carbon Dioxide 27, Anion Gap 10.4, BUN 31 H, Creatinine 1.50 H, Estimated Creat Clear 38, Estimated GFR 45 L, Est GFR ( Amer) 54 L, Glucose 182 H, Calcium 9.4, Phosphorus 1.8 L, Magnesium 1.8 03/18/25 01:50: Magnesium 0.9 L D, Total Bilirubin 0.8, AST 25, ALT 17, Alkaline Phosphatase 80, Troponin I < 0.01, Total Protein 7.4, Albumin 4.4, Globulin 3.0, Albumin/Globulin Ratio 1.5 03/18/25 02:32: Urine Color Dark yellow, Urine Appearance Clear, Urine pH 6.0, Ur Specific [place] 1.020, Urine Protein 3+ A, Urine Glucose (UA) 3+, Urine Ketones Negative, Urine Blood 3+ A, Urine Nitrate Negative, Urine Bilirubin Negative, Urine Urobilinogen 0.2, Ur Leukocyte Esterase 1+ A, Urine RBC 50-100, Urine WBC 20-50, Ur Squamous Epith Cells Occasional, Urine Bacteria 3+ 03/18/25 01:50 03/18/25 01:50 Orders (Tests/Meds): ED MEDICATIONS Generic Name Dose Route Start Last Admin Trade Name Freq PRN Reason Stop Dose Admin Acetaminophen 650 mg 03/18/25 03:42 Acetaminophen 325mg Tab PO 04/17/25 03:41 Q4HP PRN Fever or Mild Pain (1-3) Ceftriaxone Sodium 1 gm/ 50 mls @ 100 mls/hr 03/18/25 03:19 03/18/25 03:27 Sodium Chloride IV 03/18/25 03:48 100 mls/hr ONCE ONE Administration Magnesium Sulfate 2 gm in 50 mls @ 150 mls/hr 03/18/25 03:36 Magnesium Sulfate 2gm/50ml Premix IV 03/18/25 03:55 ONCE ONE Sodium Chloride 1,000 mls @ 75 mls/hr 03/18/25 03:45 Sod Chlor 0.9% 1000ml Bag IV 04/17/25 03:44 .[id number] RICH Ceftriaxone Sodium 2 gm/ 100 mls @ 200 mls/hr 03/19/25 03:45 Sodium Chloride IV 03/29/25 03:44 Q24H RICH Discontinued Medications Generic Name Dose Route Start Last Admin Trade Name Freq PRN Reason Stop Dose Admin Sodium Chloride 1,000 mls @ 999 mls/hr 03/18/25 02:15 03/18/25 02:13 Sod Chlor 0.9% 1000ml Bag IV 03/18/25 03:15 999 mls/hr .Q1H1M RICH Administration Sodium Chloride 1,000 mls @ 999 mls/hr 03/18/25 02:45 03/18/25 02:59 Sod Chlor 0.9% 1000ml Bag IV 03/18/25 03:45 999 mls/hr .Q1H1M RICH Administration Iopamidol 70 ml 03/18/25 02:58 03/18/25 03:00 Iopamidol-370 (76%);100ml Bottle IV 03/18/25 02:59 70 ml ONCE ONE Administration Sodium Chloride 50 ml 03/18/25 02:58 03/18/25 03:00 0.9 % Sodium Chloride 50 Ml Vial IV 03/18/25 02:59 50 ml ONCE ONE Administration Sodium Chloride 10 ml 03/18/25 02:58 03/18/25 03:00 Sodium Chloride 0.9% 10ml Syr (Rad Only) IV 03/18/25 02:59 10 ml ONCE ONE Administration ORDERS Category Date Time Status CT angio chest PE protocol Stat Cat Scan 03/18/25 01:[address] cervical spine wo con Stat Cat Scan 03/18/25 01:[address] head/brain wo con Stat Cat Scan 03/18/25 01:58 Completed CBC w/Auto Diff [Complete Blood Count Auto Diff] Stat Lab 03/18/25 01:50 Completed CMP [Comprehensive Metabolic Panel] Stat Lab 03/18/25 01:50 Completed INR [Prothrombin Time INR] Stat Lab 03/18/25 01:50 Completed Magnesium Stat Lab 03/18/25 01:50 Completed Magnesium Stat Lab 03/18/25 01:50 Completed Phosphorous Stat Lab 03/18/25 01:50 Completed Troponin I Q3H Lab 03/18/25 01:50 Completed Troponin I Q3H Lab 03/18/25 05:00 Ordered UA [Urinalysis and Microscopic] Stat Lab 03/18/25 02:32 Completed Blood Culture Stat Micro 03/18/25 03:31 Received Urine Culture Stat Micro 03/18/25 02:32 Received ECG Data Tracing #1: I reviewed this ECG and interpreted as documented below: Sinus tachycardia with rate of 101, no concerning ST segment changes, no evidence of arrhythmia. Normal intervals. ECG initial impression date: 03/18/25 ECG initial impression time: 02:00 HEART Score History (anamnesis): Slightly suspicious ECG: Normal Age: >65 years Risk factors: 1-2 risk factors Troponin: </= normal limit HEART Score: 3 Medical Decision Narrative: 85-year-old male with history of diabetes, recent prostate surgery presents for multiple falls. History was obtained via interactive discussion with patient, family, EMS. On arrival, patient is [afebrile, hemodynamically stable, satting appropriately, alert, oriented x4, GCS 15], moving all extremities spontaneously. Full physical exam performed and significant for laceration to the face, no other tenderness noted on exam. Laceration was repaired at bedside by me. Differential includes but is not limited to cranial trauma to thoracic trauma intra-abdominal trauma spine trauma extremity trauma, orthostasis, vasovagal syncope, cardiogenic syncope, PE, seizure. Orthostatic vitals are remarkable for severe drop in blood pressure with standing. Patient was given 2 L IV fluid bolus for symptomatic management and correction of underlying abnormalities. Workup initiated including CBC CMP troponin urinalysis EKG CT head CT C-spine CT chest to assess for trauma and PE. On re-evaluation, patient [remains afebrile, HD stable.] EKG does not suggest any cardiac source of syncope. Laboratory workup independently interpreted by me and significant for CIERRA with creatinine 1.5, up from 1. Also shows hypomagnesemia and hypophosphatemia. Urinalysis from the catheter specimen is concerning for infection despite patient being on Doxy and nitrofurantoin empirically prior to arrival. Blood cultures were obtained and patient was initiated on ceftriaxone. Also initiated on IV magnesium. Imaging independently interpreted by me and significant for no evidence of intracranial bleeding, no evidence of acute cervical fracture, no evidence of pneumothorax or PE. See radiology read for full review of final results. Given patient history, exam and workup, patient's presentation most likely represents syncope secondary to orthostatic hypotension and dehydration in setting of recent initiation of Jardiance. UTI in the setting of recent prostate surgery and indwelling catheter placement may also be contributing. Interactive discussion was had with hospitalist on-call for admission. Procedures Risk/Benefits of Procedure(s) Were Explained: Yes Laceration Laceration 1: Site: face (Superior lateral to the right eyebrow) Size (cm): 2 Description: linear and clean Depth: involves subcutaneous layer Local Anesthetic: lidocaine 1% Pre-repair: wound explored, irrigated extensively and deep structures intact Skin layer closed with: other (Fast gut) Size (cm): 5-0 Number of sutures: 5 Technique: simple, interrupted Critical Care Critical Care Time Critical Care Time: No
--- NOTE | 2025-03-18 01:57 | ECG_ITS ---
APPROVED REPORT Exam: Resting ECG HR:101 bpm ECG Measurements Heart Rate 101 AXES ME 152 P 44 QRSd 94 QRS -37 QT 333 T 51 QTc 391 Conclusion SINUS TACHYCARDIA LEFT AXIS DEVIATION [QRS AXIS < -30] ABNORMAL ECG UNCONFIRMED REPORT Electronically signed by : EVIE PLEITEZ, 03/20/2025 00:24:19
--- NOTE | 2025-03-18 01:58 | CT_ITS ---
PROCEDURE INFORMATION: Exam: CT Head Without Contrast Exam date and time: 03/18/2025 2:40 AM Age: 85 years old Clinical indication: Injury or trauma; Fall TECHNIQUE: Imaging protocol: Computed tomography of the head without contrast. Radiation optimization: All CT scans at this facility use at least one of these dose optimization techniques: automated exposure control; mA and/or kV adjustment per patient size (includes targeted exams where dose is matched to clinical indication); or iterative reconstruction. COMPARISON: No relevant prior studies available. FINDINGS: Brain: Chronic ischemic change and volume loss. No hemorrhage. Unremarkable white matter. No mass effect. Cerebral ventricles: No ventriculomegaly. Paranasal sinuses: Visualized sinuses are unremarkable. No fluid levels. Mastoid air cells: Visualized mastoid air cells are well aerated. Bones: Bilateral nasal bone fractures. Soft tissues: Right frontal periorbital scalp hematoma. No retrobulbar hematoma. IMPRESSION: No acute intracranial abnormality. Nasal bone fractures.
--- NOTE | 2025-03-18 01:59 | CT_ITS ---
PROCEDURE INFORMATION: Exam: CTA Chest With Contrast Exam date and time: 03/18/2025 2:47 AM Age: 85 years old Clinical indication: Injury or trauma; Fall; Additional info: Recurrent syncope/fall TECHNIQUE: Imaging protocol: Computed tomographic angiography of the chest with contrast. Exam focused on the arteries. 3D rendering (Not supervised by radiologist): MIP and/or 3D reconstructed images were created by the technologist. Radiation optimization: All CT scans at this facility use at least one of these dose optimization techniques: automated exposure control; mA and/or kV adjustment per patient size (includes targeted exams where dose is matched to clinical indication); or iterative reconstruction. Contrast material: ISOVUE; Contrast volume: 70 ml; Contrast route: INTRAVENOUS (IV); COMPARISON: CT CERVICAL SPINE WO CON 03/18/2025 2:42 AM FINDINGS: Pulmonary arteries: There is no evidence of filling defects within the pulmonary arterial circulation to suggest pulmonary embolism. Aorta: The ascending thoracic aorta is at the upper limits of normal measuring 3.8 x 3.8 cm. The aortic arch measures 3 cm. The descending thoracic aorta measures 2.8 cm. No dissection. Thyroid: The visualized thyroid gland is normal. Lungs: There is a 2.7 mm nodule in the right middle lobe seen on series 6, image 95. There are a few linear densities in the lung apices suggesting parenchymal scarring. No focal areas of consolidation.There is a linear density along the interlobar fissure in the left mid lung likely reflecting parenchymal scarring. Pleural spaces: There are no pleural effusions. No pneumothorax. Heart: There is no evidence of pericardial fluid collections. The heart is nonenlarged. Coronary arteries: There is mild atherosclerotic calcification of the coronary arteries. Lymph nodes: Calcified mediastinal and hilar lymph nodes indicate prior granulomatous disease. Liver: The visualized liver demonstrates punctate calcifications consistent with remote granulomatous organism exposure. Gallbladder and biliary ducts: A few calcified gallstones are present. Spleen: The spleen demonstrates punctate calcifications, consistent with remote granulomatous organism exposure. An accessory splenule is present. Adrenal glands: There is mild nondiscrete prominence of both adrenal glands which may reflect adenomatous change. This is stable since 03/07/2025. Kidneys: There is mild hydronephrosis involving the visualized portions of both superior kidneys, appearing decreased since 03/07/2025. Stomach: Apparent mild proximal gastric mural thickening could be on the basis of incomplete distension but cannot exclude gastritis or other inflammatory or infiltrative process. Correlate clinically. Bones/joints: The thoracic spine demonstrates moderate degenerative changes at multiple levels. The visualized lower cervical spine demonstrates moderate discogenic and spondylitic degenerative changes. There is no evidence of acute fracture. Soft tissues: Unremarkable. IMPRESSION: 1. No evidence of pulmonary emboli. 2. Mild hydronephrosis involving the visualized portions of both superior kidneys, appearing mildly decreased since 03/07/2025. 3. Cholelithiasis. 4. Apparent mild proximal gastric mural thickening could be on the basis of incomplete distension but cannot exclude gastritis or other inflammatory or infiltrative process. Correlate clinically. 5. 2.7 mm stable nodule in the right middle lobe. For patients at low risk (minimal or absent history of smoking and of other known risk factors), no routine follow-up is indicated. For patients at high risk (history of smoking or of other known risk factors), consider optional CT Chest at 12 months. (Reference: Brittni) REFERENCES: Brittni H, et al. Guidelines for Management of Incidental Pulmonary Nodules Detected on CT Images: From the Fleischner Society 2017. Radiology. 2017;284(1):228-243.
--- NOTE | 2025-03-18 01:59 | CT_ITS ---
PROCEDURE INFORMATION: Exam: CT Cervical Spine Without Contrast Exam date and time: 03/18/2025 2:42 AM Age: 85 years old Clinical indication: Injury or trauma; Fall TECHNIQUE: Imaging protocol: Computed tomography of the cervical spine without contrast. Radiation optimization: All CT scans at this facility use at least one of these dose optimization techniques: automated exposure control; mA and/or kV adjustment per patient size (includes targeted exams where dose is matched to clinical indication); or iterative reconstruction. COMPARISON: CT HEAD/BRAIN WO CON 03/18/2025 2:40 AM FINDINGS: Bones/joints: No acute fracture. Normal alignment. C2-C3: No significant disc bulge or herniation. No severe spinal canal stenosis. No significant neural foraminal narrowing. C3-C4: No significant disc bulge or herniation. No severe spinal canal stenosis. No significant neural foraminal narrowing. C4-C5: No significant disc bulge or herniation. No severe spinal canal stenosis. No significant neural foraminal narrowing. C5-C6: Degenerative disc osteophyte complex C5-C6. C6-C7: No significant disc bulge or herniation. No severe spinal canal stenosis. No significant neural foraminal narrowing. C7-T1: No significant disc bulge or herniation. No severe spinal canal stenosis. No significant neural foraminal narrowing. Lungs: Lung apices are normal. Soft tissues: Unremarkable. IMPRESSION: No acute findings.
--- NOTE | 2025-03-18 02:05 | PC.NURSE ---
orthostatic VS recorded, charted and showen to provider.
[2025-03-18 02:07] LABS: Basophils % 0.3 % (0.1-2.0); Eosinophils # 0.1 Kmm3 (0.0-0.4); Eosinophils % 0.6 % (0.1-12.0); Hematocrit 37.6 % (42.0-52.0); Hemoglobin 12.7 g/dL (14.1-18.0); Lymphocytes # 1.1 K/mm3 (0.7-4.5); Lymphocytes % 9.5 % (10-50); Mean Corpuscular HGB Conc 33.8 g/dL (31.8-35.4); Mean Corpuscular Hemoglobin 28.5 pg (27.0-31.2); Mean Corpuscular Volume 84.5 fl (80-94); Mean Platelet Volume 10.6 fl (7.4-10.4); Monocytes # 0.8 K/mm3 (0.1-1.0); Monocytes % 6.9 % (1.7-9.3); Neutrophils # 9.5 K/mm3 (1.8-7.8); Neutrophils % 82.3 % (37.0-80.0); Nucleated Red Blood Cells # 0 10^3/uL; Nucleated Red Blood Cells % 0 %; Platelet Count 213 K/mm3 (142-424); Red Blood Count 4.45 M/mm3 (4.60-6.20); Red Cell Distribution Width 11.5 % (11.5-17.5); Red Cell Distribution Width-SD 35.1 fL; White Blood Count 11.5 K/mm3 (4.8-10.8)
[2025-03-18 02:12] LABS: Albumin Level 4.4 g/dl (3.5-5.0); Chloride 101 mmol/L (98-107); Potassium 4.4 mmoL/L (3.5-5.1); Sodium 134 mmol/L (136-145)
[2025-03-18] MEDS: 0.9 % SODIUM CHLORIDE 1000ML 1,000 ML 999 ML IV ×2 (02:13→02:59)
[2025-03-18 02:14] LABS: Alanine Aminotransferase 17 U/L (12-78); Blood Urea Nitrogen 31 mg/dl (9-20); Creatinine Clearance Estimated 38 mL/min (50-200); Estimated Glomerular Filt Rate 45 ml/min (>60); GFR (African American) 54 ML/MIN (>60); INR 1.02 (0.9-1.1); Prothrombin Time 11.4 seconds (10.1-12.5)
[2025-03-18 02:15] LABS: Albumin/Globulin Ratio 1.5 (1.1-1.8); Alkaline Phosphatase 80 U/L (38-126); Anion Gap 10.4 mEq/L (5-15); Aspartate Amino Transferase 25 U/L (17-59); Bilirubin,Total 0.8 mg/dl (0.2-1.3); Calcium 9.4 mg/dl (8.4-10.2); Carbon Dioxide 27 mmol/L (22.0-30.0); Glucose 182 mg/dl (74-100); Magnesium 1.8 mg/dl (1.6-2.3); Total Protein,Serum 7.4 g/dl (6.3-8.2)
--- OUTSIDE RECORDS SUMMARY | 2025-03-18 02:20 | XMS_ITS | Continuity of Care Document ---
Author Organization [facility] Lennox kevin [facility]UA [facility] Address [address] [place] [address] Care Team Providers Care Sanitor Name Role Phone AME BEE Primary Care Provider [phone] Assessment No assessment recorded. Plan of Treatment Reminders Order Date Submit Date Provider Last Modified By Organization Details Last Modified Time Details Appointments RECHECK 2024 01:00P M JAVAN ORNELAS MD Not available Not available Not available Lab urinalysi s panel, auto [address] [facility], [address], [place], [address], 03/06/2025 22:24:14 PSA, serum or plasma [address] [facility], [address], [place], [address], 03/06/2025 22:24:13 Referral None recorded. Procedures None recorded. Surgeries None recorded. Imaging None recorded. Medication Orders None recorded. Patient TargetsNo targets recorded. Patient InstructionsNo instructions recorded. Reason for Referral None Reported. Results Created Date Observation Date Name Description Value Unit Range Abnormal Flag Note LastModifiedBy Organization Detail LastModifiedTime 03/05/2003/05/2025 PSA, serum or plasm a PSA 7.7 NG/mL 0.0 - 4.0 Not Available [facility] [address], [place], [address], 03/05/2025 14:44:03 03/05/20 25 03/05/2025 urina lysis panel , auto Unknown Analyte Clean Catch Not Available [facility] [address], [place], [address], 03/05/2025 14:21:36 03/05/20 25 03/05/2025 urina lysis panel , auto Unknown Analyte Yellow Not Available [facility] [address], [place], [address], 03/05/2025 14:21:36 03/05/20 25 03/05/2025 urina lysis panel , auto Unknown Analyte Clear Not Available [facility] [address], [place], [address], 03/05/2025 14:21:36 03/05/20 25 03/05/2025 urina lysis panel , auto Unknown Analyte 1.000 Not Available [facility] [address], [place], [address], 03/05/2025 14:21:36 03/05/20 25 03/05/2025 urina lysis panel , auto Unknown Analyte 1.003 - 1.030 Not Available [facility] [address], [place], [address], 03/05/2025 14:21:36 03/05/20 25 03/05/2025 urina lysis panel , auto Unknown Analyte 6.0 Not Available [facility] [address], [place], [address], 03/05/2025 14:21:36 03/05/20 25 03/05/2025 urina lysis panel , auto Unknown Analyte 5.0 - 8.0 Not Available [facility] [address], [place], [address], 03/05/2025 14:21:36 03/05/20 25 03/05/2025 urina lysis panel , auto Unknown Analyte 500 Jina/uL Not Available [facility] [address], [place], [address], 03/05/2025 14:21:36 03/05/20 25 03/05/2025 urina lysis panel , auto Unknown Analyte Negati ve Not Available [facility] [address], [place], [address], 03/05/2025 14:21:36 03/05/20 25 03/05/2025 urina lysis panel , auto Unknown Analyte Negati ve Not Available [facility] [address], [place], [address], 03/05/2025 14:21:36 03/05/20 25 03/05/2025 urina lysis panel , auto Unknown Analyte Negati ve Not Available [facility] [address], [place], [address], 03/05/2025 14:21:36 03/05/20 25 03/05/2025 urina lysis panel , auto Unknown Analyte Negati ve Not Available [facility] [address], [place], [address], 03/05/2025 14:21:36 03/05/20 25 03/05/2025 urina lysis panel , auto Unknown Analyte Negati ve Not Available [facility] [address], [place], [address], 03/05/2025 14:21:36 03/05/20 25 03/05/2025 urina lysis panel , auto Unknown Analyte >1000 mg/dL Not Available [facility] [address], [place], [address], 03/05/2025 14:21:36 03/05/20 25 03/05/2025 urina lysis panel , auto Unknown Analyte Normal Not Available [facility] [address], [place], [address], 03/05/2025 14:21:36 03/05/20 25 03/05/2025 urina lysis panel , auto Unknown Analyte Negati ve Not Available [facility] [address], [place], [address], 03/05/2025 14:21:36 03/05/20 25 03/05/2025 urina lysis panel , auto Unknown Analyte Negati ve Not Available [facility] [address], [place], [address], 03/05/2025 14:21:36 03/05/20 25 03/05/2025 urina lysis panel , auto Unknown Analyte Normal Not Available [facility] [address], [place], [address], 03/05/2025 14:21:36 03/05/20 25 03/05/2025 urina lysis panel , auto Unknown Analyte Normal Not Available [facility] [address], [place], [address], 03/05/2025 14:21:36 03/05/20 25 03/05/2025 urina lysis panel , auto Unknown Analyte Negati ve Not Available [facility] [address], [place], [address], 03/05/2025 14:21:36 03/05/20 25 03/05/2025 urina lysis panel , auto Unknown Analyte Negati ve Not Available [facility] [address], [place], [address], 03/05/2025 14:21:36 03/05/20 25 03/05/2025 urina lysis panel , auto Unknown Analyte Negati ve Not Available [facility] [address], [place], [address], 03/05/2025 14:21:36 03/05/20 25 03/05/2025 urina lysis panel , auto Unknown Analyte Negati ve Not Available [facility] [address], [place], [address], 03/05/2025 14:21:36 03/05/20 25 03/03/2025 US, retro perit oneum , limit ed No observ ation record ed. [email or web address] Not Available 2024 12:00:00 03/11/20 25 03/07/2025 US, retro perit oneum , limit ed No observ ation record ed. [email or web address] Not Available 2024 11:59:49 Result Notes None recorded. Problems No Known Problems Procedures Surgical History Date Name Laterality Status Provider Name and Address Organization Details Recorded Time 5 Post Void Residual; Ultrasound completed Cris Barney [facility] 03/12/2025 13:07:45 5 Post Void Residual; Ultrasound completed Nicole Schwartz [facility] 03/05/2025 15:21:41 Imaging Results None recorded. Procedure Notes None recorded. Medical Equipment None [...] completed Not Available Not Available Not Available doxycyclin e monohydrat e 100 mg tablet Take 1 tablet every day by oral route at bedtime. 2024 active Not Available Not Available Not Avai lable sildenafil 100 mg tablet Take by oral [...] tion: sodium chlorid e, hyperto sanchez, ophthal rakesh; Route:o phthalm ic; refills :0 Not Available [...] Updated DateTime 03/05/2025 180.34 cm 22.3 kg/m2 78546.78 g Nicole Efren [facility] 03/05/2025 14:24:52 Social History Question Answer Notes LastModified by Organizat ion Details LastModified Time Tobacco Smoking Status Never Smoker Emma Gaitan [facility] 03/25/2020 14:44:48 What Is Your Level Of Alcohol Consumption? None [email or web address] Information not available 03/25/2020 How Much Tobacco Do You Chew? None [email or web address] Information not available 03/25/2020 Marital Status Informatio n not available 03/25/2020 What Was The Date Of Your Most Recent Tobacco Screening? 07/26/2024 [email or web address] Information not available 07/26/2024 How Much Tobacco Do You Smoke? No [email or web address] Information not available 03/25/2020 Do You Use Any Illicit Or Recreational Drugs? No [email or web address] Information not available 10/29/2021 Has Tobacco Cessation Counseling Been Provided? No [email or web address] Information not available 10/29/2021 Have You Recently Traveled Abroad? No [email or web address] Information not available 10/29/2021 Do You Or Have You Ever Used Any Other Forms Of Tobacco Or Nicotine? No [email or web address] Information not available 10/29/2021 Sex: Unknown Functional Status None recorded. Mental Status None recorded. Family History Nothing Reported. Medical History No medical history recorded. Past Encounters Encounter ID Performer Location Encounter Start Date Encounter Closed Date Diagnosis/Indication Diagnosis SNOMED-CT Code Diagnosis ICD10 Code Diagnosis Note [id number] JAVAN ORNELAS MD [facility] [address] [place] [address] 03/05/2025 13:56:44 03/05/2025 15:33:07 Benign prostatic hyperplasia with outflow obstruction 387476617 N40.1 N13.8 Continue tamsulosin twice daily follow-up 1 week with bladder scan postvoid residual. If his symptoms are not markedly improved, will encourage to consider outlet obstructio n procedure. Retention of urine [id number] 4002 R33.9 As above Health Concerns Section Related Observation LastModified by Organization Detai ls LastModified Time None Recorded Concern Status LastModified by Organization Details LastModified Time None Recorded Payers Encounter Date Sequence Insurance Name Policy Number Policy Barbosa Covered Member ID Barbosa Member ID Guarantor Name 03/05/2025 1 [employer] (MEDICARE) Darien Davidson [id number] Darien Ross 03/05/2025 2 [facility] (MEDICARE SUPPLEMENT) Darien Ross [id number] Darien Ross Notes Date Note Type Note Provider Name and Address Organization Details Recorded Time 03/05/2025 text/html Patient is here last seen [...] with his . JAVAN ORNELAS MD [address] [facility] [place], [address], [facility] 03/06/2025 22:25:05
--- OUTSIDE RECORDS SUMMARY | 2025-03-18 02:20 | XMS_ITS | Continuity of Care Document ---
Author Name [facility] Organization [facility] Care Team Providers Care English Professor Name Role Phone [facility] Unavailable Unavailable Problems Combined list of problems from Department of Defense and [facility] Affairs facilities. It does not include entries that were removed or entered in error. Problem Status Onset Date Problem Type Date of Resolution Comments Source Anxiety disorder [facility] Benign essential hypertension Active Condition [facility] Benign polyp of colon Active Condition March 31, 2017 Entered By: ZANE SOMMERS Comment: HP polyps resected February 2017 -- no additional scopes for CRC screening advised. scope only if symptoms arise. [facility] Benign prostatic hyperplasia Active Condition [facility] Cataract * (ICD-9-CM 366.9/366.10) Active Condition [facility] Diabetes mellitus type 2 Active Condition [facility] Elevated Prostate Specific antigen [psa] (ICD-9-CM 790.93) Active Condition [facility] Elevated PSA Active Condition [facility] Exposure to potentially hazardous substance ([facility] [id number]) Active Condition [facility] Family History Active Condition Jun 142013 Entered By: KIRSTEN MCKNIGHT Comment: Mom age 100: DMII,Jul 11, 2014 Entered By: KIRSTEN MCKNIGHT Comment: Dad age 85: rheumatic fever, DMII.Jul 11, 2014 Entered By: KIRSTEN MCKNIGHT Comment: Sibs: skin cancers [facility] Gastroesophageal reflux disease Active Condition [facility] Health Maintenance Active Condition A 2013 Entered By: KIRSTEN MCKNIGHT Comment: last colonoscopy 5 years ago: nl per patient [facility] Hepatitis A * (ICD-9-CM 070.1) Active Condition Jun 24 3 Entered By: ROMARIO HENDRIX Comment: 1968, no sequelae [facility] History of male erectile disorder Active Condition [facility] Male erectile disorder (ICD-9-CM 302.72/607.84) Active Condition [facility] Mixed hyperlipidemia Active Condition [facility] Non-VA Providers Active Condition Jul 11, 2014 Entered By: KIRSTEN MCKNIGHT Comment: Bryson Galvan, Family Doctor [facility] Personal History of Unspecified Diseases of Digestive System (ICD-9-CM V12.70) Active Condition Jun 19 Entered By: ROMARIO HENDRIX Comment: 1967---likely hepatitis A [facility] Social History Active Condition Jun 142013 Entered By: KIRSTEN MCKNIGHT Comment: : 1 childAug 2013 Entered By: KIRSTEN MCKNIGHT Comment: 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8 Type 2 diabetes mellitus with unspecified complications Active Diagnosis [facility] Medications Combined list of outpatient medications [...] DAILY FOR CHOLESTE ROL ORAL ACTIVE 07/25/2025 [id number] DORIS ASHRAF PETER 2023 45 [place] [facility] ATORVASTATI N CA 40MG TAB TAKE ONE-HALF TABLET BY MOUTH DAILY FOR CHOLESTE ROL ORAL DISCONT INUED 07/31/2024 [id number] FLORESITA BARRIENTOS 2022 45 [place] [facility] CYANOCOBALA MIN 500MCG TAB TAKE ONE TABLET BY MOUTH DAILY FOR VITAMIN B12 SUPPLEME NT ORAL ACTIVE 11/08/2025 [id number] RANJIT MCELROY R 2023 100 [place] [facility] FOLIC ACID 1MG TAB TAKE ONE TABLET BY MOUTH EVERY MORNING FOR SUPPLEME NT ORAL ACTIVE 11/08/2025 [id number] RANJIT MCELROY R 2023 100 [place] [facility] LISINOPRIL 20MG TAB TAKE ONE-HALF TABLET BY MOUTH DAILY FOR BLOOD PRESSURE /HEART ORAL ACTIVE 07/25/2025 [id number] DORIS ASHRAF 2023 45 [place] LISINOPRIL 20MG TAB TAKE ONE-HALF TABLET BY MOUTH DAILY FOR BLOOD PRESSURE /HEART ORAL DISCONT INUED 07/31/2024 [id number] FLORESITA BARRIENTOS 2022 45 [place] [facility] METFORMIN HCL 500MG TAB TAKE ONE TABLET BY MOUTH TWICE A DAY FOR DIABETES ORAL ACTIVE 07/25/2025 [id number] DORIS ASHRAF 2023 180 [place] [facility] SILDENAFIL CITRATE 100MG TAB TAKE ONE TABLET BY MOUTH DIRECTED FOR ERECTILE DYSFUNCT ION - DO NOT TAKE WITH ANY MEDICATI ON CONTAINI NG NITRATES (LIMIT: 4 DOSES/30 DAYS OR 12 DOSES/90 DAYS, NON-REPL ACEABLE MEDICATI ON) ORAL 07/31/2024 [id number] FLORESITA BARRIENTOS 2022 18 [place] [facility] Immunizations Combined list of available immunizations from the Department of Defense and [facility] Affairs facilities. Immunization Series Date Given Administered By Site Reaction Lot Number CVX Code Drug Director Skills Status Comments Source COVID-19 (PFIZER), MRNA, LNP-S, PF, RASHID-SUCROSE, 30 MCG/0.3 ML (AGES 12+ YEARS) 3 2023 309 complet ed HISTORICA L INFORMATI ON - FROM OTHER REGISTRY, [place] [facility] TD (ADULT), 5 LF TETANUS TOXOID, PRESERVATIVE FREE, ADSORBED 2021 113 complet ed [place] [facility] COVID-19 (MODERNA), MRNA, LNP-S, PF, 100 MCG/0.5 ML DOSE 2 2020 207 complet ed [place] [facility] COVID-19 (MODERNA), MRNA, LNP-S, PF, 100 MCG/0.5 ML DOSE 1 2020 207 complet ed [place] [facility] TDAP 1 2016 115 complet ed HISTORICA L INFORMATI ON - FROM OTHER REGISTRY, [place] [facility] TD(ADULT) UNSPECIFIED FORMULATION 2011 139 complet ed Booster for Series, [place] [facility] TDAP (HISTORICAL) 2011 115 complet ed [place] [facility] Results Combined list of recent chemistry, hematology [...] 16, 2024 08:32 AM Reporting Lab: [address] [address] Performing Lab: [address] [address] [facility] AUTOMATED DIFF MONOCYTES/1 00 LEUKOCYTES IN BLOOD BY AUTOMATED COUNT 9.4 0.1 - 6.0 10/25 H Specimen Type: BLOOD No comment entered. Ordering Provider: Bashir BARRIENTOS Report Released Date/Time: Oct 16, 2024 08:32 AM Reporting Lab: [address] [address] Performing Lab: [address] [phone] [place] [address] OWN AUTOMATED DIFF GRANULOCYTE S/100 LEUKOCYTES IN BLOOD BY AUTOMATED COUNT 67.1 42.0 - 75.0 10/25 Specimen Type: BLOOD No comment entered. Ordering Provider: Bashir BARRIENTOS Report Released Date/Time: Oct 16, 2024 08:32 AM Reporting Lab: [address] [address] Performing Lab: [place] [id number] [facility] OWN AUTOMATED DIFF LYMPHOCYTES [#/VOLUME] IN BLOOD BY AUTOMATED COUNT 0.96 10*3/u L 1.20 - 3.40 10/25 L Specimen Type: BLOOD No comment entered. Ordering Provider: Bashir BARRIENTOS Report Released Date/Time: Oct 16, 2024 08:32 AM Reporting Lab: [address] [address] Performing Lab: [place] [id number] [facility] OWN AUTOMATED DIFF MONOCYTES [#/VOLUME] IN BLOOD BY AUTOMATED COUNT 0.44 10*3/u L 0.00 - 0.60 10/25 Specimen Type: BLOOD No comment entered. Ordering Provider: Bashir BARRIENTOS Report Released Date/Time: Oct 16, 2024 08:32 AM Reporting Lab: [address] [address] Performing Lab: [address] [address] [facility] OWN AUTOMATED DIFF GRANULOCYTE S [#/VOLUME] IN BLOOD BY AUTOMATED COUNT 3.13 10*3/u L 1.40 - 6.50 10/25 Specimen Type: BLOOD No comment entered. Ordering Provider: Bashir BARRIENTOS Report Released Date/Time: Oct 16, 2024 08:32 AM Reporting Lab: [address] [address] Performing Lab: [address] [address] [facility] OWN AUTOMATED DIFF BASOPHILS/1 00 LEUKOCYTES IN BLOOD BY AUTOMATED COUNT 0.6 0.0 - 3.0 10/25 Specimen Type: BLOOD No comment entered. Ordering Provider: Bashir BARRIENTOS Report Released Date/Time: Oct 16, 2024 08:32 AM Reporting Lab: [place] [phone] Performing Lab: [place] [id number] [facility] OWN AUTOMATED DIFF BASOPHILS [#/VOLUME] IN BLOOD BY AUTOMATED COUNT 0.03 10*3/u L 0.00 - 0.20 10/25 Specimen Type: BLOOD No comment entered. Ordering Provider: Bashir BARRIENTOS Report Released Date/Time: Oct 16, 2024 08:32 AM Reporting Lab: [place] [phone] Performing Lab: [place] [phone] [facility] OWN AUTOMATED DIFF EOSINOPHILS /100 LEUKOCYTES IN BLOOD BY AUTOMATED COUNT 1.9 0.0 - 10.0 10/25 Specimen Type: BLOOD No comment entered. Ordering Provider: Bashir BARRIENTOS Report Released Date/Time: Oct 16, 2024 08:32 AM Reporting Lab: [address] [address] Performing Lab: [place] [phone] [facility] OWN AUTOMATED DIFF EOSINOPHILS [#/VOLUME] IN BLOOD BY AUTOMATED COUNT 0.09 10*3/u L 0.00 - 0.70 10/25 Specimen Type: BLOOD No comment entered. Ordering Provider: Bashir BARRIENTOS Report Released Date/Time: Oct 16, 2024 08:32 AM Reporting Lab: [address] [address] Performing Lab: [address] [address] [facility] OWN AUTOMATED DIFF IMMATURE GRANULOCYTE S/100 LEUKOCYTES IN BLOOD 0.4 0.0 - 0.5 10/25 Specimen Type: BLOOD No comment entered. Ordering Provider: Bashir BARRIENTOS Report Released Date/Time: Oct 16, 2024 08:32 AM Reporting Lab: [place] [phone] Performing Lab: [place] [id number] OWN AUTOMATED DIFF IMMATURE GRANULOCYTE S [#/VOLUME] IN BLOOD 0.02 10*3/u L 0.00 - 0.06 10/25 Specimen Type: BLOOD No comment entered. Ordering Provider: Bashir BARRIENTOS Report Released Date/Time: Oct 16, 2024 08:32 AM Reporting Lab: [address] Performing Lab: [place] [id number] OWN B12 VITAMIN COBALAMIN (VITAMIN B12) [MASS/VOLUM E] IN SERUM OR PLASMA 438 pg/mL 213 - 816 10/25 Specimen Type: PLASMA Comment: Vitamin B12 test may not yield results when protein level of sample is too elevated. Ordering Provider: Bashir BARRIENTOS Report Released Date/Time: Oct 16, 2024 08:32 AM Reporting Lab: [place] [phone] Performing Lab: [place] [id number] [place] [address] OWN CBC/PLT LEUKOCYTES [#/VOLUME] IN BLOOD BY AUTOMATED COUNT 4.7 10*3/u L 5.0 - 10.0 10/25 L Specimen Type: BLOOD No comment entered. Ordering Provider: Bashir BARRIENTOS Report Released Date/Time: Oct 16, 2024 08:32 AM Reporting Lab: [place] [phone] Performing Lab: [place] [phone] [facility] OWN CBC/PLT ERYTHROCYTE S [#/VOLUME] IN BLOOD BY AUTOMATED COUNT 4.16 10*6/u L 4.6 - 6.2 10/25 L Specimen Type: BLOOD No comment entered. Ordering Provider: Bashir BARRIENTOS Report Released Date/Time: Oct 16, 2024 08:32 AM Reporting Lab: [place] [phone] Performing Lab: [address] OWN CBC/PLT HEMOGLOBIN [MASS/VOLUM E] IN BLOOD 12.1 g/dL 14.0 - 18.0 10/25 L Specimen Type: BLOOD No comment entered. Ordering Provider: Bashir BARRIENTOS Report Released Date/Time: Oct 16, 2024 08:32 AM Reporting Lab: [place] [address] Performing Lab: [address] OWN CBC/PLT HEMATOCRIT [VOLUME FRACTION] OF BLOOD BY AUTOMATED COUNT 37.4 42.0 - 52.0 10/25 L Specimen Type: BLOOD No comment entered. Ordering Provider: Bashir BARRIENTOS Report Released Date/Time: Oct 16, 2024 08:32 AM Reporting Lab: [place] [address] Performing Lab: [address] OWN CBC/PLT MCV [ENTITIC VOLUME] BY AUTOMATED COUNT 89.9 fL 80.0 - 94.0 10/25 Specimen Type: BLOOD No comment entered. Ordering Provider: Bashir BARRIENTOS Report Released Date/Time: Oct 16, 2024 08:32 AM Reporting Lab: [place] [address] Performing Lab: [address] OWN CBC/PLT MCH [ENTITIC MASS] BY AUTOMATED COUNT 29.1 pg 27.0 - 31.0 10/25 Specimen Type: BLOOD No comment entered. Ordering Provider: ILIANA,L AURA A Report Released Date/Time: Oct 16, 2024 08:32 AM Reporting Lab: [address] [address] Performing Lab: [place] [id number] [place] [address] OWN CBC/PLT MCHC [MASS/VOLUM E] BY AUTOMATED COUNT 32.4 g/dL 32.0 - 36.0 10/25 Specimen Type: BLOOD No comment entered. Ordering Provider: Bashir BARRIENTOS Report Released Date/Time: Oct 16, 2024 08:32 AM Reporting Lab: [place] [id number] Performing Lab: [place] [phone] OWN CBC/PLT PLATELETS [#/VOLUME] IN BLOOD 179 10*3/u L 150 - 450 10/25 Specimen Type: BLOOD No comment entered. Ordering Provider: Bashir BARRIENTOS Report Released Date/Time: Oct 16, 2024 08:32 AM Reporting Lab: [place] [phone] Performing Lab: [place] [phone] [place] [address] OWN CBC/PLT PLATELET MEAN VOLUME [ENTITIC VOLUME] IN BLOOD 11.6 fL 9.0 - 13.1 10/25 Specimen Type: BLOOD No comment entered. Ordering Provider: Bashir BARRIENTOS Report Released Date/Time: Oct 16, 2024 08:32 AM Reporting Lab: [place] [phone] Performing Lab: [place] [phone] [place] [address] OWN CBC/PLT ERYTHROCYTE DISTRIBUTIO N WIDTH [ENTITIC VOLUME] BY AUTOMATED COUNT 11.9 11.0 - 16.0 10/25 Specimen Type: BLOOD No comment entered. Ordering Provider: Bashir BARRIENTOS Report Released Date/Time: Oct 16, 2024 08:32 AM Reporting Lab: [address] [address] Performing Lab: [address] [address] [facility] OWN CBC/PLT NUCLEATED ERYTHROCYTE S/100 ERYTHROCYTE S IN BLOOD 0.0 0.0 - 0.0 10/25 Specimen Type: BLOOD No comment entered. Ordering Provider: Bashir BARRIENTOS Report Released Date/Time: Oct 16, 2024 08:32 AM Reporting Lab: [address] [address] Performing Lab: [place] [phone] [facility] OWN FERRITIN FERRITIN [MASS/VOLUM E] IN SERUM OR PLASMA 394.3 ng/mL 21.8 - 274.7 10/25 H Specimen Type: PLASMA No comment entered. Ordering Provider: Bashir BARRIENTOS Report Released Date/Time: Oct 16, 2024 08:32 AM Reporting Lab: [place] [phone] Performing Lab: [place] [phone] [facility] OWN FOLATE FOLATE [MASS/VOLUM E] IN SERUM OR PLASMA 8.1 ng/mL 7.0 - 31.4 10/25 Specimen Type: PLASMA Comment: Vitamin B12 test may not yield results when protein level of sample is too elevated. Ordering Provider: Bashir BARRIENTOS Report Released Date/Time: Oct 16, 2024 08:32 AM Reporting Lab: [place] [phone] Performing Lab: [place] [phone] [facility] OWN IRON/TIBC IRON [MOLES/VOLU ME] IN SERUM OR PLASMA 94 ug/dL 65 - 175 10/25 Specimen Type: PLASMA No comment entered. Ordering Provider: Bashir BARRIENTOS Report Released Date/Time: Oct 16, 2024 08:32 AM Reporting Lab: [address] [address] Performing Lab: [address] [address] [facility] OWN IRON/TIBC IRON BINDING CAPACITY [MASS/VOLUM E] IN SERUM OR PLASMA 294 mg/dL 250 - 425 10/25 Specimen Type: PLASMA No comment entered. Ordering Provider: Bashir BARRIENTOS Report Released Date/Time: Oct 16, 2024 08:32 AM Reporting Lab: [address] [address] Performing Lab: [place] [phone] [facility] OWN IRON/TIBC IRON SATURATION [MOLAR FRACTION] IN SERUM OR PLASMA 32 20 - 50 10/25 Specimen Type: PLASMA No comment entered. Ordering Provider: Bashir BARRIENTOS Report Released Date/Time: Oct 16, 2024 08:32 AM Reporting Lab: [address] [address] Performing Lab: [place] [phone] [facility] OWN METHYLMAL ONIC ACID (SERUM) METHYLMALON ATE [MOLES/VOLU ME] IN SERUM OR PLASMA 226 nmol/L 0 - 378 10/25 Specimen Type: SERUM No comment entered. Ordering Provider: Bashir BARRIENTOS Report Released Date/Time: Oct 16, 2024 08:32 AM Reporting Lab: [address] [address] Performing Lab: [place] [phone] [facility] OWN RETIC COUNT (AUTOMATE D) RETICULOCYT ES/100 ERYTHROCYTE S IN BLOOD BY AUTOMATED COUNT 1.33 0.5 - 2.3 10/25 Specimen Type: BLOOD No comment entered. Ordering Provider: Bashir BARRIENTOS Report Released Date/Time: Oct 16, 2024 08:32 AM Reporting Lab: [address] [address] Performing Lab: [address] [address] [facility] OWN CBC/PLT LEUKOCYTES [#/VOLUME] IN BLOOD BY AUTOMATED COUNT 6.3 10*3/u L 5.0 - 10.0 10/09 Specimen Type: BLOOD No comment entered. Ordering Provider: BARBARA ASHRAF Report Released Date/Time: Jul 28, 2024 07:36 PM Reporting Lab: [place] [phone] Performing Lab: [place] [id number] [place] [address] OWN CBC/PLT ERYTHROCYTE S [#/VOLUME] IN BLOOD BY AUTOMATED COUNT 4.38 10*6/u L 4.6 - 6.2 10/09 L Specimen Type: BLOOD No comment entered. Ordering Provider: BARBARA ASHRAF Report Released Date/Time: Jul 28, 2024 07:36 PM Reporting Lab: [place] [id number] Performing Lab: [place] [id number] [place] [address] OWN CBC/PLT HEMOGLOBIN [MASS/VOLUM E] IN BLOOD 12.6 g/dL 14.0 - 18.0 10/09 L Specimen Type: BLOOD No comment entered. Ordering Provider: BARBARA ASHRAF Report Released Date/Time: Jul 28, 2024 07:36 PM Reporting Lab: [place] [phone] Performing Lab: [place] [id number] [place] [address] OWN CBC/PLT HEMATOCRIT [VOLUME FRACTION] OF BLOOD BY AUTOMATED COUNT 39.5 42.0 - 52.0 10/09 L Specimen Type: BLOOD No comment entered. Ordering Provider: BARBARA ASHRAF Report Released Date/Time: Jul 28, 2024 07:36 PM Reporting Lab: [address] [address] Performing Lab: [place] [id number] OWN CBC/PLT MCV [ENTITIC VOLUME] BY AUTOMATED COUNT 90.2 fL 80.0 - 94.0 10/09 Specimen Type: BLOOD No comment entered. Ordering Provider: BARBARA ASHRAF Report Released Date/Time: Jul 28, 2024 07:36 PM Reporting Lab: [address] [address] Performing Lab: [place] [id number] [place] [address] OWN CBC/PLT MCH [ENTITIC MASS] BY AUTOMATED COUNT 28.8 pg 27.0 - 31.0 10/09 Specimen Type: BLOOD No comment entered. Ordering Provider: BARBARA ASHRAF Report Released Date/Time: Jul 28, 2024 07:36 PM Reporting Lab: [address] [address] Performing Lab: [place] [id number] [place] [address] OWN CBC/PLT MCHC [MASS/VOLUM E] BY AUTOMATED COUNT 31.9 g/dL 32.0 - 36.0 10/09 L Specimen Type: BLOOD No comment entered. Ordering Provider: BARBARA ASHRAF Report Released Date/Time: Jul 28, 2024 07:36 PM Reporting Lab: [address] [address] Performing Lab: [place] [id number] [place] [address] OWN CBC/PLT PLATELETS [#/VOLUME] IN BLOOD 189 10*3/u L 150 - 450 10/09 Specimen Type: BLOOD No comment entered. Ordering Provider: BARBARA ASHRAF Report Released Date/Time: Jul 28, 2024 07:36 PM Reporting Lab: [address] [address] Performing Lab: [address] [phone] [place] [address] OWN CBC/PLT PLATELET MEAN VOLUME [ENTITIC VOLUME] IN BLOOD 11.7 fL 9.0 - 13.1 10/09 Specimen Type: BLOOD No comment entered. Ordering Provider: BARBARA ASHRAF Report Released Date/Time: Jul 28, 2024 07:36 PM Reporting Lab: [address] [address] Performing Lab: [address] [address] [facility] OWN CBC/PLT ERYTHROCYTE DISTRIBUTIO N WIDTH [ENTITIC VOLUME] BY AUTOMATED COUNT 12.0 11.0 - 16.0 10/09 Specimen Type: BLOOD No comment entered. Ordering Provider: BARBARA ASHRAF Report Released Date/Time: Jul 28, 2024 07:36 PM Reporting Lab: [place] [phone] Performing Lab: [place] [phone] [facility] OWN CBC/PLT NUCLEATED ERYTHROCYTE S/100 ERYTHROCYTE S IN BLOOD 0.0 0.0 - 0.0 10/09 Specimen Type: BLOOD No comment entered. Ordering Provider: BARBARA ASHRAF Report Released Date/Time: Jul 28, 2024 07:36 PM Reporting Lab: [place] [phone] Performing Lab: [place] [phone] [facility] OWN MICROALBU MIN/CREAT RATIO CREATININE [MASS/VOLUM E] IN URINE 127.5 mg/dL 07/24 Specimen Type: URINE No comment entered. Ordering Provider: BARBARA ASHRAF Report Released Date/Time: Jul 24, 2024 09:59 AM Reporting Lab: [place] [phone] Performing Lab: [place] [phone] [facility] OWN MICROALBU MIN/CREAT RATIO MICROALBUMI N [MASS/VOLUM E] IN URINE 15.9 mg/L 0.0 - 30.0 07/24 Specimen Type: URINE No comment entered. Ordering Provider: BARBARA ASHRAF Report Released Date/Time: Jul 24, 2024 09:59 AM Reporting Lab: [address] [address] Performing Lab: [place] [id number] [facility] OWN MICROALBU MIN/CREAT RATIO MICROALBUMI N/CREATININ E [MASS RATIO] IN URINE 12.5 ug/mg{ creat} 07/24 Specimen Type: URINE No comment entered. Ordering Provider: BARBARA ASHRAF Report Released Date/Time: Jul 24, 2024 09:59 AM Reporting Lab: [address] [address] Performing Lab: [address] [address] [facility] Vital Signs Combined list of inpatient and outpatient Vital Signs from Department of [facility] and [facility], ranging from 12 months to all on record, depending upon the facility. Vital Sign Value Date Comments Source SYSTOLIC BLOOD PRESSURE 138 07/24/2024 09:30:05 [facility] DIASTOLIC BLOOD PRESSURE 83 07/24/2024 09:30:05 [facility] PULSE OXIMETRY 99 07/24/2024 09:30:05 [facility] PAIN 0 07[facility]24[facility]2024 [facility]30[facility] HEIGHT 71 07/24/2024 09:30[facility] TEMPERATURE 96.7 07/24/2024 09:30:05 [facility] PULSE 73 07/24/2024 09:30:05 VIV[facility] RESPIRATION 18 07/24/2024 09:30:05 [facility] Encounters Combined list of: 1) Encounters from [facility] facilities going backup to the last 18 months, not all ID inpatient encounters are included; 2) Encounters from the Department of [facility] facilities going backup to 280 months. Location Location Details Encounter Type Encounter Number Reason For Visit Attending Provider ADM Date DC Date Status Disposition Source [facility] Outpatient Encounter [id number] 03/15 [place] [facility] Outpatient Encounter [id number] 07/09 [place] [facility] Outpatient Encounter [id number] 07/11 [place] [facility] Outpatient Encounter [id number] 07/11 [place] [facility] EST [place] 40 MIN [id number] Diagnos is: ICD-10- CM E11.8 Type 2 diabete s mellitu s with unspeci fied complic ations FLAREY,ANT HONY PETER 07/24 [place] [facility] FEE [id number] Diagnos is: ICD-10- CM E11.9 Type 2 diabete s mellitu s without complic ations FLAREY,ANT HONY PETER 07/24 [place] [facility] PH[facility]-10 MIN [id number] [phone] Diagnos is: ICD-10- CM E11.9 Type 2 diabete s mellitu s without complic ations DEANA REYNOSO A 08/05 [place] [facility] PRO PHONE CALL 5-10 MIN [id number] [phone] Diagnos is: ICD-10- CM Z71.89 Other specifi ed counseling specialist ing DEANA REYNOSO A 10/23 [place] [facility] PRO PHONE CALL 5-10 MIN [id number] [phone] Diagnos is: ICD-10- CM Z71.2 Person consult ing for explana tion of exam or test finding s KENNEDI VELIZ 11/07 [place] [facility] Social History Combined list of available smoking, tobacco, and other social history from [facility] and [facility] facilities. Social History Type Response Date Comment Sourc e Tobacco smoking status [facility]IS [facility] NEVER USED 07[facility]24[facility]2024 [place] [facility] [facility] History of tobacco use ID-TOBACCO NEVER USED 07/31/2023 [facility]2019 [facility] History of tobacco use V9 LIFETIME NON-USER OF TOBACCO 07/09/2018 [facility] History of tobacco use V9 LIFETIME NON-USER OF TOBACCO 06/28/2017 [facility] History of tobacco use V9 LIFETIME NON-USER OF TOBACCO 06/15/2016 [facility] History of tobacco use V9 LIFETIME NON-USER OF TOBACCO 07/13/2015 [facility] History of tobacco use V9 LIFETIME NON-USER OF TOBACCO 07/11/2014 [facility] History of tobacco use V9 LIFETIME NON-USER OF TOBACCO 06/24/2013 [facility] History of tobacco use V9 LIFETIME NON-USER OF TOBACCO 06/19/2012 [facility]
--- OUTSIDE RECORDS SUMMARY | 2025-03-18 02:21 | XMS_ITS | Continuity of Care Document ---
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 Plan of Treatment Reminders Order Date Submit Date Provider Last Modified By Organization Details Last Modified Time Details Appointments RECHECK 2024 01:00P M JAVAN ORNELAS MD Not available Not available Not available Lab urinalysi s panel, auto [address] [facility], [address], [place], [address], 03/12/2025 14:04:52 Referral None recorded. Procedures None recorded. Surgeries None recorded. Imaging None recorded. Medication Orders doxycycli ne monohydra te 100 mg tablet 2024 025 [facility] 591, [address] [place], [address], 03/12/2025 14:05:44 Patient TargetsNo targets recorded. Patient InstructionsNo instructions recorded. Reason for Referral None Reported. Results Created Date Observation Date Name Description Value Unit Range Abnormal Flag Note LastModifiedBy Organization Detail LastModifiedTime 03/12/2003/12/2025 urina lysis panel , auto Unknown Analyte Clean Catch Not Available [facility] [address], [place], [address], 03/12/2025 13:21:26 03/12/20 25 03/12/2025 urina lysis panel , auto Unknown Analyte Yellow Not Available [facility] [address], [place], [address], 03/12/2025 13:21:26 03/12/20 25 03/12/2025 urina lysis panel , auto Unknown Analyte Cloudy Not Available [facility] [address], [place], [address], 03/12/2025 13:21:26 03/12/20 25 03/12/2025 urina lysis panel , auto Unknown Analyte 1.000 Not Available [facility] [address], [place], [address], 03/12/2025 13:21:26 03/12/20 25 03/12/2025 urina lysis panel , auto Unknown Analyte 1.003 - 1.030 Not Available [facility] [address], [place], [address], 03/12/2025 13:21:26 03/12/20 25 03/12/2025 urina lysis panel , auto Unknown Analyte 7.0 Not Available [facility] [address], [place], [address], 03/12/2025 13:21:26 03/12/20 25 03/12/2025 urina lysis panel , auto Unknown Analyte 5.0 - 8.0 Not Available [facility] [address], [place], [address], 03/12/2025 13:21:26 03/12/20 25 03/12/2025 urina lysis panel , auto Unknown Analyte 500 Jina/uL Not Available [facility] [address], [place], [address], 03/12/2025 13:21:26 03/12/20 25 03/12/2025 urina lysis panel , auto Unknown Analyte Negati ve Not Available [facility] [address], [place], [address], 03/12/2025 13:21:26 03/12/20 25 03/12/2025 urina lysis panel , auto Unknown Analyte Negati ve Not Available [facility] [address], [place], [address], 03/12/2025 13:21:26 03/12/20 25 03/12/2025 urina lysis panel , auto Unknown Analyte Negati ve Not Available [facility] [address], [place], [address], 03/12/2025 13:21:26 03/12/20 25 03/12/2025 urina lysis panel , auto Unknown Analyte Negati ve Not Available [facility] [address], [place], [address], 03/12/2025 13:21:26 03/12/20 25 03/12/2025 urina lysis panel , auto Unknown Analyte Negati ve Not Available [facility] [address], [place], [address], 03/12/2025 13:21:26 03/12/20 25 03/12/2025 urina lysis panel , auto Unknown Analyte >1000 mg/dL Not Available [facility] [address], [place], [address], 03/12/2025 13:21:26 03/12/20 25 03/12/2025 urina lysis panel , auto Unknown Analyte Normal Not Available [facility] [address], [place], [address], 03/12/2025 13:21:26 03/12/20 25 03/12/2025 urina lysis panel , auto Unknown Analyte Negati ve Not Available [facility] [address], [place], [address], 03/12/2025 13:21:26 03/12/20 25 03/12/2025 urina lysis panel , auto Unknown Analyte Negati ve Not Available [facility] [address], [place], [address], 03/12/2025 13:21:26 03/12/20 25 03/12/2025 urina lysis panel , auto Unknown Analyte Normal Not Available [facility] [address], [place], [address], 03/12/2025 13:21:26 03/12/20 25 03/12/2025 urina lysis panel , auto Unknown Analyte Normal Not Available [facility] [address], [place], [address], 03/12/2025 13:21:26 03/12/20 25 03/12/2025 urina lysis panel , auto Unknown Analyte Negati ve Not Available [facility] [address], [place], [address], 03/12/2025 13:21:26 03/12/20 25 03/12/2025 urina lysis panel , auto Unknown Analyte Negati ve Not Available [facility] [address], [place], [address], 03/12/2025 13:21:26 03/12/20 25 03/12/2025 urina lysis panel , auto Unknown Analyte Negati ve Not Available [facility] [address], [place], [address], 03/12/2025 13:21:26 03/12/20 25 03/12/2025 urina lysis panel , auto Unknown Analyte Negati ve Not Available [facility] [address], [place], [address], 03/12/2025 13:21:26 03/05/20 25 03/03/2025 US, retro perit oneum [...] Recorded Time Post Void Residual; Ultrasound completed Cris Barney [facility] 03/12/2025 13:07:45 Post Void Residual; Ultrasound completed Nicole Schwartz [facility] 03/05/2025 15:21:41 Imaging Results None recorded. Procedure [...] and Address Organization Details Last Updated DateTime 03/12/2025 180.34 cm 22.3 kg/m2 94136.78 g Cris Barney [facility] 03/12/2025 13:07:37 Social History Question Answer Notes LastModified by Organizat ion Details LastModified Time Tobacco Smoking Status Never Smoker Emma Gaitan [facility] 03/25/2020 14:44:48 What Is Your Level Of Alcohol Consumption? None [email or web address] Information not available 03/25/2020 How Much Tobacco Do You Chew? None [email or web address] Information not available 03/25/2020 Marital Status [email or web address] Informatio n not available 03/25/2020 What Was The Date Of Your Most Recent Tobacco Screening? 07/26/2024 [email or web address] Information not available 07/26/2024 How Much Tobacco Do You Smoke? No [email or web address] Information not available 03/25/2020 Do You Use Any Illicit Or Recreational Drugs? No [email or web address] Information not available 10/29/2021 Has Tobacco Cessation Counseling Been Provided? No [email or web address] Information not available 10/29/2021 Have You Recently Traveled Abroad? No [email or web address] Information not available 10/29/2021 Do You Or Have You Ever Used Any Other Forms Of Tobacco Or Nicotine? No [email or web address] Information not available 10/29/2021 Sex: Unknown Functional Status None recorded. Mental Status None recorded. Family History Nothing Reported. Medical History No medical history recorded. Past Encounters Encounter ID Performer Location Encounter Start Date Encounter Closed Date Diagnosis/Indication Diagnosis SNOMED-CT Code Diagnosis ICD10 Code Diagnosis Note [id number] JAVAN ORNELAS MD [facility] [address] [place] [address] 03/05/2025 13:56:44 03/05/2025 15:33:07 Benign prostatic hyperplasia with outflow obstruction 473536880 N40.1 N13.8 Continue tamsulosin twice daily follow-up 1 week with bladder scan postvoid residual. If his symptoms are not markedly improved, will encourage to consider outlet obstructio n procedure. Retention of urine 79195 4002 R33.9 As above [id number] JAVAN ORNELAS MD [facility] [address] [place] [address] 03/12/2025 12:39:12 03/12/2025 14:03:30 Benign prostatic hyperplasia with outflow obstruction 860406283 N40.1 N13.8 Retention of urine 33235 4002 R33.9 As above Health Concerns Section Related Observation LastModified by Organization Detai ls LastModified Time None Recorded Concern Status LastModified by Organization Details LastModified Time None Recorded Payers Encounter Date Sequence Insurance Name Policy Number Policy Barbosa Covered Member ID Barbosa Member ID Guarantor Name 03/12/2025 1 [place] Darien Ross [id number] Darien Ross 03/12/2025 2 freee (MEDICARE SUPPLEMENT) Darien Rsos [id number] Darien Ross Notes Date Note Type Note Provider Name and Address Organization Details Recorded Time 03/12/2025 text/html Patient is here for follow-up of urinary retention. He increased his Flomax to twice daily last week and fortunately is supposed to residual still quite high he continues to have incontinence. He is residual was 693 mL. He is here today with his and discussed proceeding with greenlight laser vaporization of prostate. Other options were TURP. We discussed procedure in detail and convalescence. He understands to proceed soon as possible. JAVAN ORNELAS MD [address] [place], [address], [facility] 03/12/2025 14:06:20
--- OUTSIDE RECORDS SUMMARY | 2025-03-18 02:21 | XMS_ITS | Data Portability ---
Author Organization [facility] Ganado BLANCO Rodriguez TWAIN HARTE CLOSED Address [address] [place] [address] Care Team Providers Care Buyer Intern Name Role Phone AME BEE Primary Care Provider Assessment No assessment recorded. Plan of Treatment Reminders Order Date Submit Date Provider Last Modified By Organization Details Last Modified Time Details Appointments RECHECK 2024 01:00P M JAVAN ORNELAS MD Not available Not available Not available Lab urinalysi s panel, auto [id number] [facility], [address], [place], [address], 03/12/2025 14:04:52 urinalysi s panel, auto 2024 025 [email or web address] [facility], [address], [place], [address], 03/06/2025 22:24:14 PSA, serum or plasma 2024 025 [email or web address] [facility], [address], [place], [address], 03/06/2025 22:24:13 urinalysi s panel, auto 2023 024 [email or web address] [facility], [address], [place], [address], 07/26/2024 12:07:34 PSA, serum or plasma [address] [facility], [address], [place], [address], 07/26/2024 12:08:40 urinalysi s panel, auto [address] [facility], [address], [place], [address], 01/10/2024 00:04:15 PSA, serum or plasma [address] [facility], [address], [place], [address], 01/10/2024 00:04:16 PSA, serum or plasma [address] [facility], [address], [place], [address], 04/05/2023 13:11:01 urinalysi s panel, auto [address] [facility], [address], [place], [address], 04/04/2023 15:29:38 Referral None recorded. Procedures None recorded. Surgeries None recorded. Imaging None recorded. Medication Orders doxycycli ne monohydra te 100 mg tablet 2024 025 [facility] 591, [address], [id number], 03/12/2025 14:05:44 sildenafi l 100 mg tablet 2023 024 [facility] 591, [address], [address], 07/26/2024 12:07:38 tamsulosi n 0.4 mg capsule 2023 024 [facility] 591, [address], [address], 01/10/2024 00:04:26 Patient TargetsNo targets recorded. Patient InstructionsNo instructions recorded. Reason for Referral None Reported. Results Created Date Observation Date Name Description Value Unit Range Abnormal Flag Note LastModifiedBy Organization Detail LastModifiedTime 04/04/2004/04/2023 PSA, serum or plasm a PSA 5.5 NG/mL 0.0 - 4.0 Not Available [facility] [address], [address], 04/04/2023 16:54:53 04/04/2004/04/2023 urina lysis panel , auto Unknown Analyte Clean Catch Not Available [facility] [address] [place] [address] [address], [place], [address], 04/04/2023 14:47:31 04/04/20 23 04/04/2023 urina lysis panel , auto Unknown Analyte Yellow Not Available [facility] [address] [place] [address] [address], [place], [address], 04/04/2023 14:47:31 04/04/2004/04/2023 urina lysis panel , auto Unknown Analyte Clear Not Available [facility] [address], [address], 04/04/2023 14:47:31 04/04/20 23 04/04/2023 urina lysis panel , auto Unknown Analyte 1.020 Not Available [facility] [address], [place], [address], 04/04/2023 14:47:31 04/04/2004/04/2023 urina lysis panel , auto Unknown Analyte 1.003- 1.035 Not Available [facility] [address], [place], [address], 04/04/2023 14:47:31 04/04/2004/04/2023 urina lysis panel , auto Unknown Analyte 5.0 Not Available [facility] [address], [place], [address], 04/04/2023 14:47:31 04/04/20 23 04/04/2023 urina lysis panel , auto Unknown Analyte 5.0-8. 0 Not Available [facility] [address], [place], [address], 04/04/2023 14:47:31 04/04/20 23 04/04/2023 urina lysis panel , auto Unknown Analyte Negati ve Not Available [facility] [address], [place], [address], 04/04/2023 14:47:31 04/04/20 23 04/04/2023 urina lysis panel , auto Unknown Analyte Negati ve Not Available [facility] [address], [place], [address], 04/04/2023 14:47:31 04/04/20 23 04/04/2023 urina lysis panel , auto Unknown Analyte Negati ve Not Available [facility] [address], [place], [address], 04/04/2023 14:47:31 04/04/20 23 04/04/2023 urina lysis panel , auto Unknown Analyte Negati ve Not Available [facility] [address], [place], [address], 04/04/2023 14:47:31 04/04/2004/04/2023 urina lysis panel , auto Unknown Analyte 30 mg/dl (+) Not Available [facility] [address], [place], [address], 04/04/2023 14:47:31 04/04/20 23 04/04/2023 urina lysis panel , auto Unknown Analyte Negati ve Not Available [facility] [address], [place], [address], 04/04/2023 14:47:31 04/04/20 23 04/04/2023 urina lysis panel , auto Unknown Analyte >1000 mg/dl Not Available [facility] [address], [place], [address], 04/04/2023 14:47:31 04/04/2004/04/2023 urina lysis panel , auto Unknown Analyte Normal Not Available [facility] [address], [place], [address], 04/04/2023 14:47:31 04/04/20 23 04/04/2023 urina lysis panel , auto Unknown Analyte Negati ve Not Available [facility] [address], [place], [address], 04/04/2023 14:47:31 04/04/20 23 04/04/2023 urina lysis panel , auto Unknown Analyte Negati ve Not Available [facility] [address], [place], [address], 04/04/2023 14:47:31 04/04/2004/04/2023 urina lysis panel , auto Unknown Analyte Normal Not Available [facility] [address], [place], [address], 04/04/2023 14:47:31 04/04/2004/04/2023 urina lysis panel , auto Unknown Analyte Normal 1 mg/dl Not Available [facility] [address], [place], [address], 04/04/2023 14:47:31 04/04/20 23 04/04/2023 urina lysis panel , auto Unknown Analyte Negati ve Not Available [facility] [address], [place], [address], 04/04/2023 14:47:31 04/04/2004/04/2023 urina lysis panel , auto Unknown Analyte Negati ve Not Available [facility] [address], [place], [address], 04/04/2023 14:47:31 04/04/20 23 04/04/2023 urina lysis panel , auto Unknown Analyte Negati ve Not Available [facility] [address], [place], [address], 04/04/2023 14:47:31 04/04/20 23 04/04/2023 urina lysis panel , auto Unknown Analyte Negati ve Not Available [facility] [address], [place], [address], 04/04/2023 14:47:31 01/09/20 24 01/09/2024 PSA, serum or plasm a PSA 5.9 NG/mL 0.0 - 4.0 Not Available [facility] [address], [place], [address], 01/09/2024 14:52:15 01/09/20 24 01/09/2024 urina lysis panel , auto Unknown Analyte Clean Catch Not Available [facility] [address], [place], [address], 01/09/2024 13:47:10 01/09/20 24 01/09/2024 urina lysis panel , auto Unknown Analyte Yellow Not Available [facility] [address], [place], [address], 01/09/2024 13:47:10 01/09/20 24 01/09/2024 urina lysis panel , auto Unknown Analyte Clear Not Available [facility] [address], [place], [address], 01/09/2024 13:47:10 01/09/20 24 01/09/2024 urina lysis panel , auto Unknown Analyte 1.015 Not Available [facility] [address], [place], [address], 01/09/2024 13:47:10 01/09/20 24 01/09/2024 urina lysis panel , auto Unknown Analyte 1.003- 1.035 Not Available [facility] [address], [place], [address], 01/09/2024 13:47:10 01/09/20 24 01/09/2024 urina lysis panel , auto Unknown Analyte 6.5 Not Available [facility] [address], [place], [address], 01/09/2024 13:47:10 01/09/20 24 01/09/2024 urina lysis panel , auto Unknown Analyte 5.0-8. 0 Not Available [facility] [address], [place], [address], 01/09/2024 13:47:10 01/09/20 24 01/09/2024 urina lysis panel , auto Unknown Analyte 75 Jina/ul (+) Not Available [facility] [address], [place], [address], 01/09/2024 13:47:10 01/09/20 24 01/09/2024 urina lysis panel , auto Unknown Analyte Negati ve Not Available [facility] [address], [place], [address], 01/09/2024 13:47:10 01/09/20 24 01/09/2024 urina lysis panel , auto Unknown Analyte Negati ve Not Available [facility] [address], [place], [address], 01/09/2024 13:47:10 01/09/20 24 01/09/2024 urina lysis panel , auto Unknown Analyte Negati ve Not Available [facility] [address], [place], [address], 01/09/2024 13:47:10 01/09/20 24 01/09/2024 urina lysis panel , auto Unknown Analyte Negati ve Not Available [facility] [address], [place], [address], 01/09/2024 13:47:10 01/09/20 24 01/09/2024 urina lysis panel , auto Unknown Analyte Negati ve Not Available [facility] [address], [place], [address], 01/09/2024 13:47:10 01/09/20 24 01/09/2024 urina lysis panel , auto Unknown Analyte >1000 mg/dl Not Available [facility] [address], [place], [address], 01/09/2024 13:47:10 01/09/20 24 01/09/2024 urina lysis panel , auto Unknown Analyte Normal Not Available [facility] [address], [place], [address], 01/09/2024 13:47:10 01/09/20 01/09/2024 urina lysis panel , auto Unknown Analyte Negati ve Not Available [facility] [address], [place], [address], 01/09/2024 13:47:10 01/09/20 24 01/09/2024 urina lysis panel , auto Unknown Analyte Negati ve Not Available [facility] [address], [place], [address], 01/09/2024 13:47:10 01/09/20 24 01/09/2024 urina lysis panel , auto Unknown Analyte Normal Not Available [facility] [address], [place], [address], 01/09/2024 13:47:10 01/09/20 24 01/09/2024 urina lysis panel , auto Unknown Analyte Normal 1 mg/dl Not Available [facility] [address], [place], [address], 01/09/2024 13:47:10 01/09/20 24 01/09/2024 urina lysis panel , auto Unknown Analyte Negati ve Not Available [facility] [address], [place], [address], 01/09/2024 13:47:10 01/09/20 24 01/09/2024 urina lysis panel , auto Unknown Analyte Negati ve Not Available [facility] [address], [place], [address], 01/09/2024 13:47:10 01/09/20 24 01/09/2024 urina lysis panel , auto Unknown Analyte Negati ve Not Available [facility] [address], [place], [address], 01/09/2024 13:47:10 01/09/20 24 01/09/2024 urina lysis panel , auto Unknown Analyte Negati ve Not Available [facility] [address], [place], [address], 01/09/2024 13:47:10 07/26/2007/26/2024 PSA, serum or plasm a PSA 5.7 NG/mL 0.0 - 4.0 Not Available [facility] [address], [place], [address], 07/26/2024 11:54:34 07/26/2007/26/2024 urina lysis panel , auto Unknown Analyte Clean Catch Not Available [facility] [address], [place], [address], 07/26/2024 11:37:15 07/26/20 24 07/26/2024 urina lysis panel , auto Unknown Analyte Yellow Not Available [facility] [address], [place], [address], 07/26/2024 11:37:15 07/26/2007/26/2024 urina lysis panel , auto Unknown Analyte Clear Not Available [facility] [address], [place], [address], 07/26/2024 11:37:15 07/26/20 24 07/26/2024 urina lysis panel , auto Unknown Analyte 1.015 Not Available [facility] [address], [place], [address], 07/26/2024 11:37:15 07/26/20 24 07/26/2024 urina lysis panel , auto Unknown Analyte 1.003- 1.035 Not Available [facility] [address], [place], [address], 07/26/2024 11:37:15 07/26/2007/26/2024 urina lysis panel , auto Unknown Analyte 5.0 Not Available [facility] [address], [place], [address], 07/26/2024 11:37:15 07/26/2007/26/2024 urina lysis panel , auto Unknown Analyte 5.0-8. 0 Not Available [facility] [address], [place], [address], 07/26/2024 11:37:15 07/26/20 24 07/26/2024 urina lysis panel , auto Unknown Analyte 500 Jina/ul (++) Not Available [facility] [address], [place], [address], 07/26/2024 11:37:15 07/26/2007/26/2024 urina lysis panel , auto Unknown Analyte Negati ve Not Available [facility] [address], [place], [address], 07/26/2024 11:37:15 07/26/20 24 07/26/2024 urina lysis panel , auto Unknown Analyte Negati ve Not Available [facility] [address], [place], [address], 07/26/2024 11:37:15 07/26/20 24 07/26/2024 urina lysis panel , auto Unknown Analyte Negati ve Not Available [facility] [address], [place], [address], 07/26/2024 11:37:15 07/26/20 24 07/26/2024 urina lysis panel , auto Unknown Analyte Negati ve Not Available [facility] [address], [place], [address], 07/26/2024 11:37:15 07/26/20 24 07/26/2024 urina lysis panel , auto Unknown Analyte Negati ve Not Available [facility] [address], [place], [address], 07/26/2024 11:37:15 07/26/20 24 07/26/2024 urina lysis panel , auto Unknown Analyte Normal Not Available [facility] [address], [place], [address], 07/26/2024 11:37:15 07/26/20 24 07/26/2024 urina lysis panel , auto Unknown Analyte Normal Not Available [facility] [address], [place], [address], 07/26/2024 11:37:15 07/26/20 24 07/26/2024 urina lysis panel , auto Unknown Analyte Negati ve Not Available [facility] [address], [place], [address], 07/26/2024 11:37:15 07/26/20 24 07/26/2024 urina lysis panel , auto Unknown Analyte Negati ve Not Available [facility] [address], [place], [address], 07/26/2024 11:37:15 07/26/20 24 07/26/2024 urina lysis panel , auto Unknown Analyte Normal Not Available [facility] [address], [place], [address], 07/26/2024 11:37:15 07/26/20 24 07/26/2024 urina lysis panel , auto Unknown Analyte Normal 1 mg/dl Not Available [facility] [address], [place], [address], 07/26/2024 11:37:15 07/26/20 24 07/26/2024 urina lysis panel , auto Unknown Analyte Negati ve Not Available [facility] [address], [place], [address], 07/26/2024 11:37:15 07/26/20 24 07/26/2024 urina lysis panel , auto Unknown Analyte Negati ve Not Available [facility] [address], [place], [address], 07/26/2024 11:37:15 07/26/20 24 07/26/2024 urina lysis panel , auto Unknown Analyte Negati ve Not Available [facility] [address], [place], [address], 07/26/2024 11:37:15 07/26/20 24 07/26/2024 urina lysis panel , auto Unknown Analyte Negati ve Not Available [facility] [address], [place], [address], 07/26/2024 11:37:15 03/05/20 25 03/05/2025 PSA, serum or plasm a PSA 7.7 NG/mL 0.0 - 4.0 Not Available [facility] [place] [address], [place], [address], 03/05/2025 14:44:03 03/05/20 25 03/05/2025 urina lysis panel , auto Unknown Analyte Clean Catch Not Available [facility] [address], [place], [address], 03/05/2025 14:21:36 03/05/20 25 03/05/2025 urina lysis panel , auto Unknown Analyte Yellow Not Available [facility] [address], [place], [address], 03/05/2025 14:21:36 03/05/20 25 03/05/2025 urina lysis panel , auto Unknown Analyte Clear Not Available [facility] [address], [place], [address], 03/05/2025 14:21:36 03/05/20 25 03/05/2025 urina lysis panel , auto Unknown Analyte 1.000 Not Available [facility] [address], [place], [address], 03/05/2025 14:21:36 03/05/20 25 03/05/2025 urina lysis panel , auto Unknown Analyte 1.003 - 1.030 Not Available [facility] [address], [place], [address], 03/05/2025 14:21:36 03/05/20 25 03/05/2025 urina lysis panel , auto Unknown Analyte 6.0 Not Available [facility] [address], [place], [address], 03/05/2025 14:21:36 03/05/20 25 03/05/2025 urina lysis panel , auto Unknown Analyte 5.0 - 8.0 Not Available [facility] [address], [place], [address], 03/05/2025 14:21:36 03/05/20 25 03/05/2025 urina lysis panel , auto Unknown Analyte 500 Jina/uL Not Available [facility] [address], [place], [address], 03/05/2025 14:21:36 03/05/20 25 03/05/2025 urina lysis panel , auto Unknown Analyte Negati ve Not Available [facility] [address], [place], [address], 03/05/2025 14:21:36 03/05/20 25 03/05/2025 urina lysis panel , auto Unknown Analyte Negati ve Not Available [facility] [address], [place], [address], 03/05/2025 14:21:36 03/05/20 25 03/05/2025 urina lysis panel , auto Unknown Analyte Negati ve Not Available [facility] [address], [place], [address], 03/05/2025 14:21:36 03/05/20 25 03/05/2025 urina lysis panel , auto Unknown Analyte Negati ve Not Available [facility] [address], [place], [address], 03/05/2025 14:21:36 03/05/20 25 03/05/2025 urina lysis panel , auto Unknown Analyte Negati ve Not Available [facility] [address], [place], [address], 03/05/2025 14:21:36 03/05/20 25 03/05/2025 urina lysis panel , auto Unknown Analyte >1000 mg/dL Not Available [facility] [facility] [address], [place], [address], 03/05/2025 14:21:36 03/05/20 25 03/05/2025 urina lysis panel , auto Unknown Analyte Normal Not Available [facility] [address], [place], [address], 03/05/2025 14:21:36 03/05/20 25 03/05/2025 urina lysis panel , auto Unknown Analyte Negati ve Not Available [facility] [address], [place], [address], 03/05/2025 14:21:36 03/05/20 25 03/05/2025 urina lysis panel , auto Unknown Analyte Negati ve Not Available [facility] [address], [place], [address], 03/05/2025 14:21:36 03/05/20 25 03/05/2025 urina lysis panel , auto Unknown Analyte Normal Not Available [facility] [address], [place], [address], 03/05/2025 14:21:36 03/05/20 25 03/05/2025 urina lysis panel , auto Unknown Analyte Normal Not Available [facility] [address], [place], [address], 03/05/2025 14:21:36 03/05/20 25 03/05/2025 urina lysis panel , auto Unknown Analyte Negati ve Not Available [facility] [address], [place], [address], 03/05/2025 14:21:36 03/05/20 25 03/05/2025 urina lysis panel , auto Unknown Analyte Negati ve Not Available [facility] [address], [place], [address], 03/05/2025 14:21:36 03/05/20 25 03/05/2025 urina lysis panel , auto Unknown Analyte Negati ve Not Available [facility] [address], [place], [address], 03/05/2025 14:21:36 03/05/20 25 03/05/2025 urina lysis panel , auto Unknown Analyte Negati ve Not Available [facility] [address], [place], [address], 03/05/2025 14:21:36 03/12/20 25 03/12/2025 urina lysis panel , auto Unknown Analyte Clean Catch Not Available [facility] [address], [place], [address], 03/12/2025 13:21:26 03/12/20 25 03/12/2025 urina lysis panel , auto Unknown Analyte Yellow Not Available [facility] [address], [place], [address], 03/12/2025 13:21:26 03/12/20 25 03/12/2025 urina lysis panel , auto Unknown Analyte Cloudy Not Available [facility] [address], [place], [address], 03/12/2025 13:21:26 03/12/20 25 03/12/2025 urina lysis panel , auto Unknown Analyte 1.000 Not Available [facility] [address], [place], [address], 03/12/2025 13:21:26 03/12/20 25 03/12/2025 urina lysis panel , auto Unknown Analyte 1.003 - 1.030 Not Available [facility] [address], [place], [address], 03/12/2025 13:21:26 03/12/20 25 03/12/2025 urina lysis panel , auto Unknown Analyte 7.0 Not Available [facility] [address], [place], [address], 03/12/2025 13:21:26 03/12/20 25 03/12/2025 urina lysis panel , auto Unknown Analyte 5.0 - 8.0 Not Available [facility] [address], [place], [address], 03/12/2025 13:21:26 03/12/20 25 03/12/2025 urina lysis panel , auto Unknown Analyte 500 Jina/uL Not Available [facility] [address], [place], [address], 03/12/2025 13:21:26 03/12/20 25 03/12/2025 urina lysis panel , auto Unknown Analyte Negati ve Not Available [facility] [address], [place], [address], 03/12/2025 13:21:26 03/12/20 25 03/12/2025 urina lysis panel , auto Unknown Analyte Negati ve Not Available [facility] [address], [place], [address], 03/12/2025 13:21:26 03/12/20 25 03/12/2025 urina lysis panel , auto Unknown Analyte Negati ve Not Available [facility] [address], [place], [address], 03/12/2025 13:21:26 03/12/20 25 03/12/2025 urina lysis panel , auto Unknown Analyte Negati ve Not Available [facility] [address], [place], [address], 03/12/2025 13:21:26 03/12/20 25 03/12/2025 urina lysis panel , auto Unknown Analyte Negati ve Not Available [facility] [address], [place], [address], 03/12/2025 13:21:26 03/12/20 25 03/12/2025 urina lysis panel , auto Unknown Analyte >1000 mg/dL Not Available [facility] [address], [place], [address], 03/12/2025 13:21:26 03/12/20 25 03/12/2025 urina lysis panel , auto Unknown Analyte Normal Not Available [facility] [address], [place], [address], 03/12/2025 13:21:26 03/12/20 25 03/12/2025 urina lysis panel , auto Unknown Analyte Negati ve Not Available [facility] [address], [place], [address], 03/12/2025 13:21:26 03/12/20 25 03/12/2025 urina lysis panel , auto Unknown Analyte Negati ve Not Available [facility] [address], [place], [address], 03/12/2025 13:21:26 03/12/20 25 03/12/2025 urina lysis panel , auto Unknown Analyte Normal Not Available [facility] [address], [place], [address], 03/12/2025 13:21:26 03/12/20 25 03/12/2025 urina lysis panel , auto Unknown Analyte Normal Not Available [facility] [address], [place], [address], 03/12/2025 13:21:26 03/12/20 25 03/12/2025 urina lysis panel , auto Unknown Analyte Negati ve Not Available [facility] [address], [place], [address], 03/12/2025 13:21:26 03/12/20 25 03/12/2025 urina lysis panel , auto Unknown Analyte Negati ve Not Available [facility] [address], [place], [address], 03/12/2025 13:21:26 03/12/20 25 03/12/2025 urina lysis panel , auto Unknown Analyte Negati ve Not Available [facility] [address], [place], [address], 03/12/2025 13:21:26 03/12/20 25 03/12/2025 urina lysis panel , auto Unknown Analyte Negati ve Not Available [facility] [address], [place], [address], 03/12/2025 13:21:26 03/05/20 25 03/03/2025 US, retro [...] Post Void Residual; Ultrasound completed [facility] 03/12/2025 13:07:45 Post Void Residual; Ultrasound completed Nicole E[facility] 03/05/2025 15:21:41 Imaging Results Imaging Date Name Status LastModified by Organiz ation Details LastModified Time 03/03/2025 US, retroperiton eum, limited completed Information not available 03/17/2025 12:00:00 03/07/2025 US, retroperiton eum, limited completed Information not available 03/17/2025 11:59:49 Procedure Notes None recorded. Medical Equipment None [...] Updated DateTime 04/04/2023 180.34 cm 24.3 kg/m2 50231.07 g [facility] 04/04/2023 14:47:06 Date Recorded Body height Body mass index (BMI) Body weight Provider Name and Address Organization Details Last Updated DateTime 01/09/2024 180.34 cm 24.3 kg/m2 09108.07 g Jennifer [facility] 01/09/2024 14:03:33 Date Recorded Body height Body mass index (BMI) Body weight Provider Name and Address Organization Details Last Updated DateTime 07/26/2024 180.34 cm 24.3 kg/m2 88825.07 g Cris [facility] 07/26/2024 11:45:41 Date Recorded Body height Body mass index (BMI) Body weight Provider Name and Address Organization Details Last Updated DateTime 03/05/2025 180.34 cm 22.3 kg/m2 51688.78 g Nicole Schwartz [facility] 03/05/2025 14:24:52 Date Recorded Body height Body mass index (BMI) Body weight Provider Name and Address Organization Details Last Updated DateTime 03/12/2025 180.34 cm 22.3 kg/m2 91380.78 g Cris Dialers [facility] 03/12/2025 13:07:37 Social History Question Answer Notes LastModified by Organizat ion Details LastModified Time Tobacco Smoking Status [facility]2020 14:44:48 What Is Your Level Of Alcohol Consumption? None [email or web address] Information not available 03/25/2020 How Much Tobacco Do You Chew? None Information not available 03/25/2020 Marital Status [email or web address] Informatio n not available 03/25/2020 What Was The Date Of Your Most Recent Tobacco Screening? 07/26/2024 [email or web address] Information not available 07/26/2024 How Much Tobacco Do You Smoke? No [email or web address] Information not available 03/25/2020 Do You Use Any Illicit Or Recreational Drugs? No [email or web address] Information not available 10/29/2021 Has Tobacco Cessation Counseling Been Provided? No Information not available 10/29/2021 Have You Recently Traveled Abroad? No [email or web address] Information not available 10/29/2021 Do You Or Have You Ever Used Any Other Forms Of Tobacco Or Nicotine? No Information not available 10/29/2021 Sex: Unknown Functional Status None recorded. Mental Status None recorded. Family History Nothing Reported. Medical History No medical history recorded. Past Encounters Encounter ID Performer Location Encounter Start Date Encounter Closed Date Diagnosis/Indication Diagnosis SNOMED-CT Code Diagnosis ICD10 Code Diagnosis Note [id number] [facility] [address] 2017 14:51:12 2017 14:51:12 [id number] JAVAN ORNELAS MD SURGERY SCHEDULE [address] [place] [address] 10/30/2019 07:13:17 10/30/2019 07:14:57 [id number] JAVAN ORNELAS MD [facility] [address] [address] 03/25/2020 14:25:26 03/25/2020 15:30:14 Prostate specific antigen above reference range 704884939 R97.20 follow-up 6 months with PSA Benign pro static hyperplasia with outflow obstruction 150243633 N40.1 [id number] JAVAN ORNELAS MD [facility] [address] [address] 09/30/2020 14:46:02 09/30/2020 16:05:32 Prostate specific antigen above reference range 977269860 R97.20 follow-up 6 months with PSA Benign pro static hyperplasia 033375259 N40.1 [id number] JAVAN ORNELAS MD [facility] [address] [address] 03/26/2021 10:52:20 03/26/2021 12:02:57 Prostate specific antigen above reference range 874495865 R97.20 follow-up 6 months with PSA Benign pro static hyperplasia with outflow obstruction 383113843 N40.1 Continue tamsulosin Primary er ectile dysfunction 344550464 N52.9 Continue sildenafil [id number] JAVAN ORNELAS MD [facility] [address],[place] [address] 10/29/2021 14:03:08 10/29/2021 15:39:10 Prostate specific antigen above reference range 475969261 R97.20 follow-up 6 months with PSA Benign pro static hyperplasia 995274654 N40.1 Continue tamsulosin Primary er ectile dysfunction 489467196 N52.9 Continue sildenafil [id number] JAVAN ORNELAS MD [facility] [address] 08/22/2022 11:03:05 08/23/2022 08:39:42 Urinary tract infectious disease 39269126 N39.0 Prostate s pecific antigen above reference range 395120852 R97.20 follow-up 6 months with PSA Benign pro static hyperplasia with outflow obstruction 984040635 N40.1 Continue tamsulosin [id number] JAVAN ORNELAS MD [facility] [address] [address] 04/04/2023 14:03:26 04/04/2023 15:31:26 Benign prostatic hyperplasia with outflow obstruction 125444346 N40.1 Continue tamsulosin Prostate s pecific antigen above reference range 042386124 R97.20 follow-up 6 months with PSA Screening for malignant neoplasm of prostate 185376688 Z12.5 [id number] JAVAN ORNELAS MD [facility] [address] [address] 01/09/2024 13:19:09 01/09/2024 14:29:57 Prostate specific antigen above reference range 933132383 R97.20 follow-up 6 months with PSA Benign pro static hyperplasia with outflow obstruction 135530530 N40.1 Continue tamsulosin [id number] JAVAN ORNELAS MD [facility] [address] [address] 07/26/2024 09:47:31 07/26/2024 12:00:38 Primary erectile dysfunction 910912531 N52.9 Continue sildenafil Prostate s pecific antigen above reference range 284209479 R97.20 follow-up 6 months with PSA [id number] JAVAN ORNELAS MD [facility] [address] [address] 03/05/2025 13:56:44 03/05/2025 15:33:07 Benign prostatic hyperplasia with outflow obstruction 941007945 N40.1 N13.8 Continue tamsulosin twice daily follow-up 1 week with bladder scan postvoid residual. If his symptoms are not markedly improved, will encourage to consider outlet obstructio n procedure. Retention of urine 24545 4002 R33.9 As above [id number] JAVAN ORNELAS MD [facility] [address] [place] [address] 03/12/2025 12:39:12 03/12/2025 14:03:30 Benign prostatic hyperplasia with outflow obstruction 258186362 N40.1 N13.8 Retention of urine 87935 4002 R33.9 As above Health Concerns Section Related Observation LastModified by Organization Detai ls LastModified Time None Recorded Concern Status LastModified by Organization Details LastModified Time None Recorded Advance Directives Directive None Recorded Payers Encounter Date Sequence Insurance Name Policy Number Policy Barbosa Covered Member ID Barbosa Member ID Guarantor Name 04/04/2023 1 [place] Darien Ross [id number] Darien Ross 04/04/2023 2 [employer] (MEDICARE SUPPLEMENT) Darien Ross [id number] Darien Ross 01/09/2024 1 [place] Darien Ross [id number] Darien Ross 01/09/2024 2 [employer] (MEDICARE SUPPLEMENT) Darien Ross [id number] Darien Ross 07/26/2024 1 [place] Darien Ross [id number] Darien Ross 07/26/2024 2 [employer] (MEDICARE SUPPLEMENT) Darien Ross [id number] Darien Ross 03/05/2025 1 [place] Darien Ross [id number] Darien Ross 03/05/2025 2 [employer] (MEDICARE SUPPLEMENT) Darien Ross [id number] Darien Ross 03/12/2025 1 [place] Darien Ross [id number] Darien Ross 03/12/2025 2 [employer] (MEDICARE SUPPLEMENT) Darien Ross [id number] Darien Ross Notes Date Note Type Note Provider Name and Address Organization Details Recorded Time 04/04/2023 text/html Patient is here with history of elevated and fluctuating PSA. He had a prostate biopsy for PSA of 11 last year. He is PSA 6 months ago was down to 5.6 and today is 5.5. He takes tamsulosin once per day. He typically has nocturia x1. [facility]04[facility] 16:55:20 01/09/2024 text/html Patient is here [...] 0-1 while taking tamsulosin. [facility], [address], [facility] 01/10/2024 00:05:04 07/26/2024 text/html Patient is here for scheduled 6-month follow-up due to mildly elevated and fluctuating PSA. He had a negative needle biopsy of prostate last year for PSA of 11. A year ago his PSA was down to 5.6 in December 18 0.9. PSA today is stable at 5.7. He has no major issues. He is no longer taking tamsulosin. He does however take 100 mg of sildenafil and requests a refill. JAVAN ORNELAS MD [address] [place] [address], [address], [facility] 08/06/2024 23:34:38 03/05/2025 text/html Patient is here [...] today with his . JAVAN ORNELAS MD [facility] [place], [address], [facility] 03/06/2025 22:25:05 03/12/2025 text/html Patient is here for follow-up [...] proceed soon as possible. JAVAN ORNELAS MD [facility] [place], [address], [facility] 03/12/2025 14:06:20
--- NOTE | 2025-03-18 02:25 | PC.NURSE ---
at bedside to repair laceration under local anesthesia
[2025-03-18 02:33] LABS: Troponin I < 0.01 ng/ml (0.00-0.034)
--- NOTE | 2025-03-18 02:36 | PC.NURSE ---
PT WITH PRE-EXISTING URINARY CATHETER. APPROX 500 ML DRAINED FROM LEG BAG. UA SENT TO LAB
[2025-03-18 02:37] LABS: Microscopic, Urine URINE MICROSCOPIC (MICROSCOPIC)
[2025-03-18 02:40] LABS: Appearance,Urine CLEAR (Clear); Bilirubin,Urine Negative (Negative); Blood, Urine 3+ (Negative); Glucose,Urine (UA) 3+ (Negative); Ketones,Urine Negative (Negative); Leukocyte Esterase,Urine 1+ (Negative); Nitrate,Urine Negative (Negative); Protein,Urine 3+ (Negative); Urobilinogen,Urine 0.2 EU/dl (0.2)
[2025-03-18 02:42] LABS: Color,Urine Dark Yellow (Yellow)
[2025-03-18 02:53] LABS: Bacteria,Urine 3+ /lpf; RBC,Urine 50-100 #/hpf (0-3); Squamous Epithelial Cell,Urine Occasional #/hpf (0-5); WBC,Urine 20-50 #/hpf (0-3)
[2025-03-18] MEDS: IOPAMIDOL-370 (76%);100ML BOTTLE 70 ML IV (03:00)
[2025-03-18] MEDS: SODIUM CHLORIDE 0.9% 10ML SYR (RAD ONLY) 10 ML IV (03:00)
[2025-03-18] MEDS: 0.9 % SODIUM CHLORIDE 50 ML VIAL IV (03:00)
[2025-03-18] MEDS: CEFTRIAXONE 1 GM 1 GM in 0.9 % SODIUM CHLORIDE 50 ML IV (03:27)
[2025-03-18 03:36] LABS: Magnesium 0.9 mg/dl (1.6-2.3); Phosphorous 1.8 mg/dl (2.5-4.5)
--- NOTE | 2025-03-18 03:45 | P.HP_ITS ---
<Statement entered by Darien Mueller MD - 03/22/25 13:00> I personally evaluated the patient and agree with the plan of care as outlined by the [facility] [employer]. History of Present Illness *Admission Date: 03/18/25 *Reason for visit:: Syncope *History of present illness: This is a 85-year-old male with a past medical history of BPH with Cabrera catheter in place who presents emergency department today with complaints of syncope/fall.? He reports dizziness upon standing falling twice today.? Recent prescription filled for nitrofurantoin and hydrocodone.? Denies fever.? Denies cough or congestion. Emergency department workup notable for orthostatic hypotension with systolic blood pressure dropping from 164 to 74 upon standing.? Increased heart rate noted.? Workup notable for leukocytosis with a white blood cell count of 11, creatinine of 1.5, glucose of 182.? Dark yellow urine noted with protein, blood, leuk esterase and bacteria. Given is urinary tract infection and orthostatic hypotension it was felt that he would benefit from hospitalization.? He is admitted to the hospital service at this time [facility] Disclaimer: The information contained in this section may have been updated after the patient was seen, as this information can be updated by other users. Social History Smoking Status: Never smoker alcohol intake: never substance use type: denies use current occupational status: retired Travel in the last 8 weeks?: None Other Medical History Have you received the Pneumonia Vaccine: No Review of Systems Review of Systems Review of systems:: pertinent systems reviewed and negative unless documented below Review of systems (narrative): Negative except for HPI Meds Home Medications and Allergies Home Medications ?Medication ?Instructions ?Recorded ?Confirmed ?Type atorvastatin 20 mg tablet 20 mg PO DAILY 06/04/19 10/22/19 History lisinopril 10 mg tablet 10 mg PO DAILY 06/04/19 10/22/19 History sildenafil 25 mg tablet 25 mg PO DAILY PRN 06/04/19 10/22/19 History New Prescriptions to Start Prescriptions: Allergies Allergy/AdvReac Type Severity Reaction Status Date / Time No Known Allergies Allergy Verified 03/18/25 02:00 Exam Data for Last 24 hours Vital signs and Labs for Last 24 Hours: Pulse Resp BP Pulse Ox O2 Del Method 98 H 14 155/87 H 99 Room Air 03/18/25 03:00 03/18/25 03:00 03/18/25 03:00 03/18/25 03:00 03/18/25 03:00 Laboratory Results - last 24 hr 03/18/25 01:50: WBC 11.5 H, RBC 4.45 L, Hgb 12.7 L, Hct 37.6 L, MCV 84.5, MCH 28.5, MCHC 33.8, RDW 11.5, Plt Count 213, MPV 10.6 H, Neut % (Auto) 82.3 H, Lymph % (Auto) 9.5 L, Levy % (Auto) 6.9, Eos % (Auto) 0.6, Baso % (Auto) 0.3, Neut # (Auto) 9.5 H, Lymph # (Auto) 1.1, Levy # (Auto) 0.8, Eos # (Auto) 0.1, Baso # (Auto) 0.0, PT 11.4, INR 1.02, Sodium 134 L, Potassium 4.4, Chloride 101, Carbon Dioxide 27, Anion Gap 10.4, BUN 31 H, Creatinine 1.50 H, Estimated Creat Clear 38, Estimated GFR 45 L, Est GFR ( Amer) 54 L, Glucose 182 H, Ca lcium 9.4, Phosphorus 1.8 L, Magnesium 1.8 03/18/25 01:50: Magnesium 0.9 L D, Total Bilirubin 0.8, AST 25, ALT 17, Alkaline Phosphatase 80, Troponin I < 0.01, Total Protein 7.4, Albumin 4.4, Globulin 3.0, Albumin/Globulin Ratio 1.5 03/18/25 02:32: Urine Color Dark yellow, Urine Appearance Clear, Urine pH 6.0, Ur Specific [place] 1.020, Urine Protein 3+ A, Urine Glucose (UA) 3+, Urine Ketones Negative, Urine Blood 3+ A, Urine Nitrate Negative, Urine Bilirubin Negative, Urine Urobilinogen 0.2, Ur Leukocyte Esterase 1+ A, Urine RBC 50-100, Urine WBC 20-50, Ur Squamous Epith Cells Occasional, Urine Bacteria 3+ I & O for Last 24 hours: Intake & Output 03/15/25 03/16/25 03/17/25 03/18/25 23:59 23:59 23:59 23:59 Weight 72.575 kg Constitutional Constitutional: no acute distress *Routine HEENT Exam Head: Present normocephalic Eye: Present EOMI and PERRL ENT: Present mucous membranes moist *Routine Neck Exam Neck: Present supple; Absent lymphadenopathy *Routine Respiratory Exam Respiratory: Present CTA bilaterally *Routine Cardiovascular Exam Cardiovascular: Present RRR *Routine Abdominal Exam Abdominal: Present soft and normoactive bowel sounds; Absent tenderness *Routine Rectal Exam Rectal:: deferred *Routine Genitalia Exam Genitalia:: deferred Comment:: Cabrera catheter with leg bag in place *Routine Extremities Exam Extremities: Absent cyanosis, clubbing or edema *Routine Skin Exam Skin: Present warm; Absent rash *Routine Neurological Exam Neurological: Present alert and oriented X3 Assessment and Plan *Assessment and plan (1) Urinary tract infection: Status: Acute Category: Medical Code(s): N39.0 - Urinary tract infection, site not specified (2) Hypomagnesemia: Status: Acute Category: Medical Code(s): E83.42 - Hypomagnesemia (3) Orthostatic hypotension: Status: Acute Category: Medical Code(s): I95.1 - Orthostatic hypotension Plan #Orthostatic hypotension Likely secondary to dehydration and infection Mildly elevated creatinine noted.? Continue maintenance IV fluids Will repeat orthostatics tomorrow once hydrated #Diabetes mellitus Recent starting of Jardiance for this. Had increased urine output over the last 2 weeks with sudden decrease today. Continue sliding scale #Acute cystitis #Indwelling Cabrera catheter, [employer] Recent lasering of prostate. Was placed on nitrofurantoin and doxycycline since then. Urinalysis with bacteria and leuk esterase. Was placed on nitrofurantoin approximately 4 days ago.? Will broaden antibiotic coverage now. #Fall Likely secondary to orthostatic hypotension C-spine and head imaging negative #Hypomagnesemia Replace per protocol
--- NOTE | 2025-03-18 04:03 | PC.NURSE ---
Patient arrived to floor via stretcher from ED at 03:52.
[2025-03-18] MEDS: MAGNESIUM SULFATE IN WATER 2 GM/50 ML PIGGYBACK IV (04:08)
[2025-03-18] MEDS: 0.9 % SODIUM CHLORIDE 1000ML 1,000 ML 75 ML IV (04:08)
[2025-03-18] MEDS: humaLOG 100 UNITS/ML 10ML VIAL (SSI) SUBCUT (05:41)
[2025-03-18 07:59] LABS: Troponin I < 0.01 ng/ml (0.00-0.034)
--- NOTE | 2025-03-18 08:42 | HMH.PHAINT1 ---
Pharmacy Intervention Comments: HOME MEDICATION LIST VERIFIED USING LIST FROM OUTPATIENT PHARMACY AN PT INTERVIEW
--- NOTE | 2025-03-18 09:28 | HMH.OTEV ---
OT Inpatient Evaluation Rehab OT IP Evaluation Start: 03/18/25 04:14 Freq: ONCE Status: Active Protocol: Document 03/18/25 09:25 VINAYAKDELAWARE (Rec: 03/18/25 09:28 [facility] [id number]) Rehab OT IP Assessment Subjective History Pt oriented x 3 on arrival. Pt agreeable to engage in therapy evaluation. Pt admitted on 03/18/25 due to syncope. History and physical: This is a 85-year-old male with a past medical history of BPH with Cabrera catheter in place who presents emergency department today with complaints of syncope/fall.? He reports dizziness upon standing falling twice today.? Recent prescription filled for nitrofurantoin and hydrocodone.? Denies fever.? Denies cough or congestion. Emergency department workup notable for orthostatic hypotension with systolic blood pressure dropping from 164 to 74 upon standing.? Increased heart rate noted.? Workup notable for leukocytosis with a white blood cell count of 11, creatinine of 1.5, glucose of 182.? Dark yellow urine noted with protein, blood, leuk esterase and bacteria. Given is urinary tract infection and orthostatic hypotension it was felt that he would benefit from hospitalization.? He is admitted to the hospital service at this time Subjective Pt reports prior to being in the hospital, pt lived at home with his . Normally he is independent with all ADLs and IADLs. He does not require any type of AE during functional transfers and he still drives. Objective Patient Orientation Person,Place,Birthday Right Upper Extremity Gross ROM WFL Left Upper Extremity Gross ROM WFL Bed Mobility bed mobility-scooting,bed mobility - supine/sit,bed mobility - rolling Assist Level Contact Guard/Hand Hold Transfer Training Sit/Stand Transfer Assist Level Contact Guard/Hand Hold Chair Transfer Ability Contact Guard/Hand Hold Chair Transfer Technique Sit to/from Ambulatory Overall Commode/Toilet Transfer Ability Contact Guard Rehab OT IP prob,goals,plan Problems Date of Evaluation: 03/18/25 OT IP Problems Bed Mobility,Transfers,Balance ,Self care,Safety Rehab Potential Rehab Potential Good Equipment Needs Assistive Devices Rolling / Wheeled Walker Plan OT intervention Plan Bed Mobility,Transfers,Balance ,Self care,Safety,Therapeutic Exercise OT Plan Frequency Daily Duration LOS Discharge Goals Bed Mobility Ability Standby Assistance Sit to Stand Chair Transfer Ability Supervision/Stand by Chair Transfer Ability Supervision/Stand by Chair Transfer Technique Sit to/from Ambulatory Chair Transfer Assistive Devices Rolling Walker Lower Body Dressing Ability Standby Assistance Upper Body Dressing Ability Standby Assistance Bathing Ability Minimal Assistance Performing Toilet Hygiene Ability Standby Assistance Overall Commode/Toilet Transfer Ability Standby Assistance Commode/Toilet Transfer Technique Sit to/from Ambulatory Discharge Plan OT Discharge Plan Pt will continue to be seen for OT services while at [facility]. Pt appears to be close to his baseline with functional transfers and ADL independence . Pt can return home with 's assistance once he is medically stable per physician . Therapist recommends OT evaluation upon returning home for continued skilled therapy services. Eval Complexity Eval Charge Codes 86985 - Moderate Complexity PHYSICIAN CERTIFICATION: I certify the specified therapy services for Darien Ross are required, authorized, and reviewed every 30 days.
--- NOTE | 2025-03-18 10:09 | HMH.PTEV ---
Physical Therapy Evaluation Rehab PT IP Evaluation Start: 03/18/25 04:14 Freq: .once Status: Active Protocol: Document 03/18/25 09:54 TAMARA (Rec: 03/18/25 10:09 TAMARA [id number]) Subjective/History History History This is a 85-year-old male with a past medical history of BPH with Cabrera catheter in place who presents emergency department today with complaints of syncope/fall.? He reports dizziness upon standing falling twice today.? Recent prescription filled for nitrofurantoin and hydrocodone.? Denies fever.? Denies cough or congestion. Emergency department workup notable for orthostatic hypotension with systolic blood pressure dropping from 164 to 74 upon standing.? Increased heart rate noted.? Workup notable for leukocytosis with a white blood cell count of 11, creatinine of 1.5, glucose of 182.? Dark yellow urine noted with protein, blood, leuk esterase and bacteria. Given is urinary tract infection and orthostatic hypotension it was felt that he would benefit from hospitalization.? He is admitted to the hospital service at this time Subjective Subjective PLOF: IND with all mobility. No history of recent falls. Still driving. No AD use. Home: 2-story home Available assistance: is present and able to assist as needed. New diagnosis of cancer in past 12 No months? [facility] How much help from another person do you currently need... Turning from your back to your side None while in a flat bed without using bedrails? Moving from lying on back to sitting on None the side of a flat bed without using bedrails? Moving to and from a bed to a chair ( None including a wheelchair)? Standing up from a chair using your arms None ? (e.g., wheelchair, bedside chair) Walking in hospital room? A little Climbing 3-5 steps with a railing? A little Mobility Score 22 Mobility Level [facility] Mobility Calculator Mobility 7 Walk 25 feet or more Rehab PT IP Eval Objective Appearance Patient Behavior Appropriate Patient Orientation Person,Place Difficulty following instructions none Speech Pattern Clear Ambulation Patient Able to Ambulate Yes Ambulation Observation IP General Gait Pattern Observation Narrow Based Gait Ambulation Distance (feet) 30 Ambulation Assistive Device None Ambulation Ability Supervision/Stand by,Contact Guard/Hand Hold Balance Ability to Arise Able, uses arms to help Sitting Balance Steady, safe Standing Balance Steady, wide stance Dynamic Sitting Balance Ability Normal Dynamic Standing Balance Ability Good Transfers Bed Transfer Ability Independent Chair Transfer Ability Independent Sit to Stand Bed Transfer Ability Supervision/Stand by Sit to Stand Chair Transfer Ability Supervision/Stand by Rehab PT IP prob,goals,plan Problems Date of Evaluation: 03/18/25 PT IP Problems Bed Mobility,Transfers,Gait, Balance,Self care,Safety Rehab Potential Rehab Potential Good Equipment Needs Assistive Devices None / NA Plan PT Intervention Plan Gait,Balance,Safety Other Intervention Plan 1-2 times PT Plan Frequency Daily Duration LOS Discharge Goals Bed Transfer Ability Independent Sit to Stand Chair Transfer Ability Independent Ambulation Assistive Device None Ambulation Distance (feet) 100 Discharge Plan PT Discharge Plan Initial PT evaluation performed. Pt able to ambulate household distances safely with CGA-SUP. No episode of dizziness noted. Pt demo'd impaired endurance. Pt would benefit from skilled PT while at [facility] to improve endurance and safety. Pt most appropriate to return home with PT services. Eval Complexity Eval Charge Codes 39348 - Moderate Complexity PHYSICIAN CERTIFICATION: I certify the specified therapy services for Darien Ross are required, authorized, and reviewed every 30 days.
[2025-03-18 11:35] LABS: Magnesium 2.1 mg/dl (1.6-2.3)
[2025-03-18 11:45] LABS: POC Glucose,Bedside 166 (70-110)
[2025-03-18 12:03] LABS: Chloride 108 mmol/L (98-107); Sodium 136 mmol/L (136-145)
[2025-03-18 12:06] LABS: Blood Urea Nitrogen 27 mg/dl (9-20); Creatinine Clearance Estimated 45 mL/min (50-200); Estimated Glomerular Filt Rate 53 ml/min (>60); GFR (African American) 64 ML/MIN (>60)
[2025-03-18 12:07] LABS: Calcium 8.7 mg/dl (8.4-10.2); Carbon Dioxide 22 mmol/L (22.0-30.0); Glucose 156 mg/dl (74-100)
--- NOTE | 2025-03-18 12:41 | SW/DCPLANNER ---
Addendum entered by Lelo Rutherford 03/18/25 14:04: [email or web address] is able to accept patient. Ivan [employer] Original Note: Spoke with patient once he is medically ready for D/C if he would be interested in home health services. Patient stated that he is interested and he has no preference. I faxed patient's info to [email or web address] and will update once i hear back from them. Ivan Haro
[2025-03-18 16:53] LABS: POC Glucose,Bedside 178 (70-110)
--- NOTE | 2025-03-18 17:13 | EXP.DC.SUM ---
General Admission date:: 03/18/25 HPI HPI HPI: This is a 85-year-old male with a past medical history of BPH with Cabrera catheter in place who presents emergency department today with complaints of syncope/fall.? He reports dizziness upon standing falling twice today.? Recent prescription filled for nitrofurantoin and hydrocodone.? Denies fever.? Denies cough or congestion. Emergency department workup notable for orthostatic hypotension with systolic blood pressure dropping from 164 to 74 upon standing.? Increased heart rate noted.? Workup notable for leukocytosis with a white blood cell count of 11, creatinine of 1.5, glucose of 182.? Dark yellow urine noted with protein, blood, leuk esterase and bacteria. Given is urinary tract infection and orthostatic hypotension it was felt that he would benefit from hospitalization.? He is admitted to the hospital service at this time Hospital Course Hospital Course Hospital Course: Darien Ross is a 85-year-old male who presented after a dizziness, fall, and was admitted for orthostatic hypotension. 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 Was placed on nitrofurantoin and doxycycline since then. ? Likely secondary to dehydration, UTI, and Jardiance. ? UA grossly abnormal. Urine culture pending. ? Clinically improved with IV fluid resuscitation, IV ceftriaxone. ? Discharged with levofloxacin for 6 more days. Advised to hold Jardiance until follow-up with PCP due to dehydration, UTI. #Diabetes mellitus ? Hold Jardiance as above. Continue home metformin. Will follow-up with PCP for further evaluation and management. #Fall Likely secondary to orthostatic hypotension C-spine and head imaging negative ? PT recommended home health and patient was referred. Total time spent on discharge: 32 minutes on chart review, counseling, documentation, and direct care with patient. Exam Data for Last 24 hours Vital signs and Labs for Last 24 Hours: Temp Pulse Resp BP Pulse Ox O2 Del Method 97.7 F 97 H 16 146/73 H 100 Room Air 03/18/25 16:00 03/18/25 16:00 03/18/25 16:00 03/18/25 16:00 03/18/25 16:00 03/18/25 16:47 Laboratory Results - last 24 hr 03/18/25 01:50: WBC 11.5 H, RBC 4.45 L, Hgb 12.7 L, Hct 37.6 L, MCV 84.5, MCH 28.5, MCHC 33.8, RDW 11.5, Plt Count 213, MPV 10.6 H, Neut % (Auto) 82.3 H, Lymph % (Auto) 9.5 L, [place] % (Auto) 6.9, Eos % (Auto) 0.6, Baso % (Auto) 0.3, Neut # (Auto) 9.5 H, Lymph # (Auto) 1.1, [place] # (Auto) 0.8, Eos # (Auto) 0.1, Baso # (Auto) 0.0, PT 11.4, INR 1.02, Sodium 134 L, Potassium 4.4, Chloride 101, Carbon Dioxide 27, Anion Gap 10.4, BUN 31 H, Creatinine 1.50 H, Estimated Creat Clear 38, Estimated GFR 45 L, Est GFR ( Amer) 54 L, Glucose 182 H, Calcium 9.4, Phosphorus 1.8 L, Magnesium 1.8 03/18/25 01:50: Magnesium 0.9 L D, Total Bilirubin 0.8, AST 25, ALT 17, Alkaline Phosphatase 80, Troponin I < 0.01, Total Protein 7.4, Albumin 4.4, Globulin 3.0, Albumin/Globulin Ratio 1.5 03/18/25 02:32: Urine Color Dark yellow, Urine Appearance Clear, Urine pH 6.0, Ur Specific Lynn 1.020, Urine Protein 3+ A, Urine Glucose (UA) 3+, Urine Ketones Negative, Urine Blood 3+ A, Urine Nitrate Negative, Urine Bilirubin Negative, Urine Urobilinogen 0.2, Ur Leukocyte Esterase 1+ A, Urine RBC 50-100, Urine WBC 20-50, Ur Squamous Epith Cells Occasional, Urine Bacteria 3+ 03/18/25 06:30: Troponin I < 0.01 03/18/25 11:04: Sodium 136, Potassium 4.0, Chloride 108 H, Carbon Dioxide 22, Anion Gap 10.0, BUN 27 H, Creatinine 1.30 H, Estimated Creat Clear 45, Estimated GFR 53 L, Est GFR ( Amer) 64, Glucose 156 H, Calcium 8.7, Magnesium 2.1 D 03/18/25 11:31: POC Glucose 166 H 03/18/25 16:44: POC Glucose 178 H I & O for Last 24 hours: Intake & Output 03/15/25 03/16/25 03/17/25 03/18/25 23:59 23:59 23:59 23:59 Intake Total 930 / 930 Output Total 1900 / 1900 Balance -970 / -970 Weight 75.432 kg Constitutional Constitutional: no acute distress *Routine HEENT Exam Head: Present normocephalic Eye: Present EOMI and PERRL ENT: Present mucous membranes moist *Routine Neck Exam Neck: Present supple; Absent lymphadenopathy *Routine Respiratory Exam Respiratory: Present CTA bilaterally *Routine Cardiovascular Exam Cardiovascular: Present RRR *Routine Abdominal Exam Abdominal: Present soft and normoactive bowel sounds; Absent tenderness *Routine Extremities Exam Extremities: Absent cyanosis, clubbing or edema *Routine Skin Exam Skin: Present warm; Absent rash *Routine Neurological Exam Neurological: Present alert and oriented X3 Results Data Completed and Pending Labs on day of discharge: Labs from last 24 hours 03/18/25 03/18/25 03/18/25 16:44 11:31 11:04 WBC RBC Hgb Hct MCV MCH MCHC RDW Plt Count MPV Neut % (Auto) Lymph % (Auto) [place] % (Auto) Eos % (Auto) Baso % (Auto) Neut # (Auto) Lymph # (Auto) [place] # (Auto) Eos # (Auto) Baso # (Auto) PT INR Sodium 136 Potassium 4.0 Chloride 108 H Carbon Dioxide 22 Anion Gap 10.0 BUN 27 H Creatinine 1.30 H Estimated Creat Clear 45 Estimated GFR 53 L Est GFR ( Amer) 64 Glucose 156 H POC Glucose 178 H 166 H Calcium 8.7 Phosphorus Magnesium 2.1 D Total Bilirubin AST ALT Alkaline Phosphatase Troponin I Total Protein Albumin Globulin Albumin/Globulin Ratio Urine Color Urine Appearance Urine pH Ur Specific Lynn Urine Protein Urine Glucose (UA) Urine Ketones Urine Blood Urine Nitrate Urine Bilirubin Urine Urobilinogen Ur Leukocyte Esterase Urine RBC Urine WBC Ur Squamous Epith Cells Urine Bacteria 03/18/25 03/18/25 03/18/25 06:30 02:32 01:50 WBC RBC Hgb Hct MCV MCH MCHC RDW Plt Count MPV Neut % (Auto) Lymph % (Auto) [place] % (Auto) Eos % (Auto) Baso % (Auto) Neut # (Auto) Lymph # (Auto) [place] # (Auto) Eos # (Auto) Baso # (Auto) PT INR Sodium Potassium Chloride Carbon Dioxide Anion Gap BUN Creatinine Estimated Creat Clear Estimated GFR Est GFR ( Amer) Glucose POC Glucose Calcium Phosphorus Magnesium 0.9 L D Total Bilirubin 0.8 AST 25 ALT 17 Alkaline Phosphatase 80 Troponin I < 0.01 < 0.01 Total Protein 7.4 Albumin 4.4 Globulin 3.0 Albumin/Globulin Ratio 1.5 Urine Color Dark yellow Urine Appearance Clear Urine pH 6.0 Ur Specific Lynn 1.020 Urine Protein 3+ A Urine Glucose (UA) 3+ Urine Ketones Negative Urine Blood 3+ A Urine Nitrate Negative Urine Bilirubin Negative Urine Urobilinogen 0.2 Ur Leukocyte Esterase 1+ A Urine RBC 50-100 Urine WBC 20-50 Ur Squamous Epith Cells Occasional Urine Bacteria 3+ 03/18/25 01:50 WBC 11.5 H RBC 4.45 L Hgb 12.7 L Hct 37.6 L MCV 84.5 MCH 28.5 MCHC 33.8 RDW 11.5 Plt Count 213 MPV 10.6 H Neut % (Auto) 82.3 H Lymph % (Auto) 9.5 L [place] % (Auto) 6.9 Eos % (Auto) 0.6 Baso % (Auto) 0.3 Neut # (Auto) 9.5 H Lymph # (Auto) 1.1 [place] # (Auto) 0.8 Eos # (Auto) 0.1 Baso # (Auto) 0.0 PT 11.4 INR 1.02 Sodium 134 L Potassium 4.4 Chloride 101 Carbon Dioxide 27 Anion Gap 10.4 BUN 31 H Creatinine 1.50 H Estimated Creat Clear 38 Estimated GFR 45 L Est GFR ( Amer) 54 L Glucose 182 H POC Glucose Calcium 9.4 Phosphorus 1.8 L Magnesium 1.8 Total Bilirubin AST ALT Alkaline Phosphatase Troponin I Total Protein Albumin Globulin Albumin/Globulin Ratio Urine Color Urine Appearance Urine pH Ur Specific Lynn Urine Protein Urine Glucose (UA) Urine Ketones Urine Blood Urine Nitrate Urine Bilirubin Urine Urobilinogen Ur Leukocyte Esterase Urine RBC Urine WBC Ur Squamous Epith Cells Urine Bacteria DS: Diagnosis Discharge Diagnosis (1) Urinary tract infection: Status: Acute Code(s): N39.0 - Urinary tract infection, site not specified Qualifiers: Urinary tract infection type: catheter-associated UTI (2) Hypomagnesemia: Status: Acute Code(s): E83.42 - Hypomagnesemia (3) Orthostatic hypotension: Status: Acute Code(s): I95.1 - Orthostatic hypotension Meds Home Medications and Allergies Home Medications ?Medication ?Instructions ?Recorded ?Confirmed ?Type atorvastatin 20 mg tablet 20 mg PO HS 06/04/19 03/18/25 History bethanechol chloride 25 mg tablet 25 mg PO TID 03/18/25 03/18/25 History cyanocobalamin (vitamin B-12) 500 500 mcg PO DAILY 03/18/25 03/18/25 History mcg tablet docusate sodium 100 mg capsule 100 mg PO DAILY 03/18/25 03/18/25 History empagliflozin 10 mg tablet 10 mg PO DAILY 03/18/25 03/18/25 History (Jardiance) Held on 03/18/25. Instructions: Resume on 03/24/25. Hold this medication until you see your PCP due to your UTI. folic acid 1 mg tablet 1 mg PO DAILY 03/18/25 03/18/25 History hydrocodone 7.5 mg-acetaminophen 1 tab PO Q6H PRN Pain 03/18/25 03/18/25 History 325 mg tablet levofloxacin 750 mg tablet 750 mg PO Q48H 6 days #3 tabs 03/18/25 Rx metformin 500 mg tablet 500 mg PO DAILY 03/18/25 03/18/25 History prednisolone acetate 1 % eye 1 drp Eye-Both DAILY 03/18/25 03/18/25 History drops,suspension sildenafil 100 mg tablet 100 mg PO DAILY 03/18/25 03/18/25 History tamsulosin 0.4 mg capsule 0.4 mg PO DAILY 03/18/25 03/18/25 History New Prescriptions to Start Prescriptions: Darien Garcia Allergies Allergy/AdvReac Type Severity Reaction Status Date / Time No Known Allergies Allergy Verified 03/18/25 02:00 Discharge Plan Disposition Patient Disposition: Home Health Service Condition: Fair Discharge Order Discharge Orders: Discharge Order (Routine); Ordered 03/18/25 Ordered By: Darien Mueller Follow up Plan Follow up with: Lizzy Concepcion APRN [Nurse Practitioner, Medical] - 03/24/25 11:30 am Prescriptions/Medication Reconciliation: New levofloxacin 750 mg tablet 750 mg PO Q48H 6 Days Qty: 3 0RF Continued atorvastatin 20 mg tablet 20 mg PO HS metformin 500 mg Tablet 500 mg PO DAILY sildenafil 100 mg tablet 100 mg PO DAILY prednisolone acetate 1 % drops,suspension 1 drp Eye-Both DAILY cyanocobalamin (vitamin B-12) 500 mcg Tablet 500 mcg PO DAILY tamsulosin 0.4 mg capsule 0.4 mg PO DAILY hydrocodone-acetaminophen 7.5-325 mg tablet 1 tab PO Q6H PRN (Reason: Pain) docusate sodium 100 mg capsule 100 mg PO DAILY folic acid 1 mg Tablet 1 mg PO DAILY bethanechol chloride 25 mg tablet 25 mg PO TID Held Jardiance 10 mg tablet 10 mg PO DAILY Hold Instructions: Resume on 03/24/25. Hold this medication until you see your PCP due to your UTI. Discontinued doxycycline monohydrate 100 mg tablet 100 mg PO HS nitrofurantoin monohyd/m-cryst 100 mg capsule 1 cap PO BIDWMEAL Problem Reconciliation Problems Reviewed?: Yes Patient Discharge Instructions Patient Instructions: DI for Syncope in Adults (Fainting), DI for Orthostatic Hypotension, DI for Urinary Tract Infection (UTI), Catheter-Associated Urinary Tract Infection Print Language: Tanzanian Providers Primary Care Provider: Yonathan Armas Admit Provider: David Weiss Attending Provider: David Weiss
--- NOTE | 2025-03-18 18:23 | PC.NURSE ---
Pt reports urinating after catheter removed
--- NOTE | 2025-03-19 10:04 | SW/DCPLANNER ---
Spoke with patient's on the phone. Patient's stated that she is aware of her husbands appointment. Patient's stated that her daughter is picking up his medicine now. Patient's stated that no one told her when her could take a bath and that the only thing they said that he could shower. Patients stated that she has called the surgeon and that they acted like he wasnt a patient. The surgeon was in [place]. Patient's stated that she has no other concerns or questions at this time. Ivan Haro
--- NOTE | 2025-03-20 10:31 | SW/DCPLANNER ---
Sheri from [facility] texted me to let me know that patient refused home health services. [facility] asked me to phone the patient. I phoned the patient and spoke with the patient's and she stated that patient is doing much better and he doesnt need home health at this time. Sheri from [facility] is going to follow up one day next week and to see if the patient's health has declined over the weekend. Ivan Haro
[2025-03-25 15:44] LABS: POC Glucose,Bedside 238 (70-110)
== END 2025-03-18 18:33 | disposition home health service (06) ==
LOC: ER 02:35 → 2ND 03:50
PROVIDERS: Student in an Organized Health Care Education/Training Program; Admitting Provider Internal Medicine Adolescent Medicine; Emergency Provider Emergency Medicine; PCP Internal Medicine Adolescent Medicine; Visit Provider Internal Medicine Adolescent Medicine
DX: I95.1 Orthostatic hypotension (principal); N39.0 Urinary tract infection, site not specified; E83.42 Hypomagnesemia; N40.0 Benign prostatic hyperplasia without lower urinary tract symptoms; E11.9 Type 2 diabetes mellitus without complications; N52.9 Male erectile dysfunction, unspecified; E78.5 Hyperlipidemia, unspecified; Z79.899 Other long term (current) drug therapy; Z79.84 Long term (current) use of oral hypoglycemic drugs; S01.111A Laceration without foreign body of right eyelid and periocular area, initial encounter; W19.XXXA Unspecified fall, initial encounter; R00.0 Tachycardia, unspecified; N13.30 Unspecified hydronephrosis; K80.20 Calculus of gallbladder without cholecystitis without obstruction; K31.89 Other diseases of stomach and duodenum; Z96.0 Presence of urogenital implants; R91.1 Solitary pulmonary nodule
CPT/HCPCS: 12011; 36415; 70450; 71275; 72125; 80048; 80053; 81001; 82962; 83735; 84100; 84484; 85025; 85610; 87040; 87086; 93005; 97116; 97162; 97166; 97535; 99285; G0378; J0696; J3475; J7030; Q9967